=== PATIENT | male | born 1940 | race Caucasian/White ===

== ENCOUNTER 2020-02-11 20:16 | Inpatient (IN) ==
[2020-02-11] MEDS ORDERED: ACETAMINOPHEN 1,000 MG/100 ML VIAL IV STA (20:37)
--- NOTE | 2020-02-11 20:37 | Emergency Department Note ---
History of Present Illness General Chief complaint: Illness Stated complaint: Illness, fever, urosepsis Time Seen by Provider: 02/11/20 20:18 Source: patient, family and EMS Mode of arrival: EMS Limitations: no limitations History of Present Illness Provider complaint: Fever, confusion Onset (ago): hour(s) Associated symptoms: + confusion, + fever/chills and + nausea/vomiting This is an 79-year-old male brought in from EMS after family/caregivers were concerned that the patient was confused and was developing a fever. Patient does have a history of urinary tract infections and sepsis. Patient denies any current pain. Patient states he was nauseated on the ambulance ride, and EMS did give him 4 mg of IV Zofran. Patient did vomit twice. Patient was given cautious IV fluid rehydration in route as well. Patient states he was hospitalized back in August. States he has been feeling well since, is more active, and did eat and drink normally today. Patient states he had chipped ham for lunch, and was not concerned for any foodborne illness. A family friend who came to check on him was concerned that he was confused and contacted family. Upon EMS arrival patient did have a temperature of 101. Patient states he does have a history of prostate problems and sees Dr. Barriga, believes this may have contributed to his urinary tract infection. 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 Pt had a total of 500 ml IVF infused by EMS prior to arrival. Pt seen during a time of high acuity and national emergency pandemic while wear ing PPE. Home Medications Home Medications Medication Instructions Recorded Confirmed Type dutasteride 0.5 mg capsule 0.5 mg PO DAILY #90 cap 04/16/19 02/11/20 Rx aspirin [Aspir-81] 81 mg PO DAILY 09/09/19 02/11/20 History carvedilol [Coreg] 6.25 mg PO HS 09/09/19 02/11/20 History digoxin 250 mcg PO DAILY 09/09/19 02/11/20 History empagliflozin [Jardiance] 10 mg PO DAILY 09/09/19 02/11/20 History linagliptin [Tradjenta] 5 mg PO DAILY 09/09/19 02/11/20 History simvastatin [Zocor] 10 mg PO HS 09/09/19 02/11/20 History acetaminophen [Tylenol Extra 1,000 mg PO AMHS 02/11/20 02/11/20 History Strength] docusate sodium 100 mg PO HS 02/11/20 02/11/20 History qocwtibb-bme-DL-lycopen-lutein 1 tab PO DAILY 02/11/20 02/11/20 History [Centrum Silver] apixaban [Eliquis] 2.5 mg PO Q12 02/12/20 02/12/20 History Allergies Allergy/AdvReac Type Severity Reaction Status Date / Time pseudoephedrine AdvReac uti Verified 02/11/20 23:14 [From Sudafed] Past Med/Surg History Medical History (Updated 02/12/20 @ 12:56 by Constantin Lemus MD) Hydronephrosis Social History Smoking Status: Never smoker Do You Dip or Chew Tobacco: No; Hx Alcohol Use: No Hx Substance Use: No Preferred Language: Indonesian Communication Ability: Effective Furnace Utility Operator Required: No Beliefs That Will Affect Care: None marital status: Single Current Living Situation: Alone How many Children do You have: 0 Feels Safe at Home: Yes Review of Systems See HPI for pertinent positives & negatives. and A total of 10 systems reviewed and were otherwise negative Physical Exam Vital Signs Vital Signs - 24 hr 02/11/20 20:24 02/11/20 20:28 02/11/20 20:30 Temperature 38.0 C H Temperature Source Oral Pulse Rate 84 85 Pulse Rate from SpO2 Sensor 84 Respiratory Rate 18 18 Blood Pressure 156/80 H 116/72 Blood Pressure Mean 105 86 Pulse Oximetry 94 94 93 Oxygen Delivery Method Room Air Room Air Sepsis Recent Fever Within 48 Hours Yes Sepsis New/Unexplained Change in Mental Status N/A Sepsis Action Taken by Nursing No Action Required 02/11/20 21:00 02/11/20 21:30 02/11/20 21:48 Temperature 37 C Temperature Source Oral Pulse Rate 76 76 Pulse Rate from SpO2 Sensor 77 76 Respiratory Rate 18 20 Blood Pressure 140/63 120/56 L Blood Pressure Mean 78 64 Pulse Oximetry 96 94 Oxygen Delivery Method Sepsis Recent Fever Within 48 Hours Sepsis New/Unexplained Change in Mental Status Sepsis Action Taken by Nursing 02/11/20 21:50 02/11/20 22:00 02/11/20 22:01 Temperature Temperature Source Pulse Rate 74 74 71 Pulse Rate from SpO2 Sensor 72 74 71 Respiratory Rate 16 21 19 Blood Pressure 107/54 L Blood Pressure Mean 64 Pulse Oximetry 92 95 93 Oxygen Delivery Method Sepsis Recent Fever Within 48 Hours Sepsis New/Unexplained Change in Mental Status Sepsis Action Taken by Nursing 02/11/20 22:10 02/11/20 22:20 02/11/20 22:30 Temperature Temperature Source Pulse Rate 70 70 72 Pulse Rate from SpO2 Sensor 65 Respiratory Rate 17 19 16 Blood Pressure 133/60 Blood Pressure Mean 69 Pulse Oximetry 94 Oxygen Delivery Method Sepsis Recent Fever Within 48 Hours Sepsis New/Unexplained Change in Mental Status Sepsis Action Taken by Nursing 02/11/20 22:31 02/11/20 22:48 02/11/20 22:50 Temperature Temperature Source Pulse Rate 82 68 70 Pulse Rate from SpO2 Sensor 68 69 Respiratory Rate 21 16 21 Blood Pressure Blood Pressure Mean Pulse Oximetry 98 96 Oxygen Delivery Method Sepsis Recent Fever Within 48 Hours Sepsis New/Unexplained Change in Mental Status Sepsis Action Taken by Nursing 02/11/20 23:00 02/11/20 23:01 02/11/20 23:10 Temperature Temperature Source Pulse Rate 71 70 70 Pulse Rate from SpO2 Sensor 70 68 70 Respiratory Rate 19 18 Blood Pressure 132/61 Blood Pressure Mean 76 Pulse Oximetry 96 96 95 Oxygen Delivery Method Sepsis Recent Fever Within 48 Hours Sepsis New/Unexplained Change in Mental Status Sepsis Action Taken by Nursing 02/11/20 23:20 02/11/20 23:30 02/11/20 23:31 Temperature Temperature Source Pulse Rate 68 68 67 Pulse Rate from SpO2 Sensor 68 69 68 Respiratory Rate 20 19 21 Blood Pressure 112/56 L Blood Pressure Mean 64 Pulse Oximetry 96 97 95 Oxygen Delivery Method Sepsis Recent Fever Within 48 Hours Sepsis New/Unexplained Change in Mental Status Sepsis Action Taken by Nursing 02/12/20 00:06 Temperature Temperature Source Pulse Rate 69 Pulse Rate from SpO2 Sensor 65 Respiratory Rate 13 Blood Pressure Blood Pressure Mean Pulse Oximetry 97 Oxygen Delivery Method Sepsis Recent Fever Within 48 Hours Sepsis New/Unexplained Change in Mental Status Sepsis Action Taken by Nursing GENERAL: alert, well appearing, well nourished, no distress, non-toxic, pt holding emesis bag EYE EXAM: normal conjunctiva, PERRL and EOM's grossly intact OROPHARYNX: no exudate, no erythema, lips, buccal mucosa, and tongue normal and mucous membranes are moist NECK: supple, no nuchal rigidity, no adenopathy, non-tender LUNGS: Clear to auscultation. Normal chest wall mechanics, no w/r/r HEART: no murmurs, S1 normal and S2 normal ABDOMEN: abdomen soft, non-tender, normo-active bowel sounds, no masses, no rebound or guarding. BACK: Back is symmetrical on inspection and there is no deformity, no midline tenderness, no CVA tenderness. SKIN: no rashes and no bruising UPPER EXTREMITIES: upper extremities are grossly normal. FROM, nml pulses b/l. LOWER EXTREMITIES: No pitting edema. FROM, nml pulses b/l. NEURO EXAM: Normal sensorium, cranial nerves II-XII grossly intact, normal speech, no gross weakness of arms, no gross weakness of legs. Gross sensation intact. Course Course 2199: Pt updated on results. Pt states he feels well at this time. 2319: Pt and family updated on additional results. 2326: Case discussed with Dr. Parada. US added after CT report discussed. Administered Medications Apixaban (Apixaban 2.5 Mg Tab) 2.5 mg PO Q12 MICAH Stop: 03/13/20 08:59 Last Admin: 02/13/20 08:07 Dose: 2.5 mg Documented by: [id number] Admin: 02/12/20 20:22 Dose: 2.5 mg Documented by: [id number] Admin: 02/12/20 08:25 Dose: 2.5 mg Documented by: [id number] Aspirin (Aspirin 81 Mg Ectab) 81 mg PO DAILY MICAH Stop: 03/13/20 08:59 Last Admin: 02/13/20 08:07 Dose: 81 mg Documented by: [id number] Admin: 02/12/20 08:25 Dose: 81 mg Documented by: [id number] Carvedilol (Carvedilol 6.25 Mg Tab) 6.25 mg PO HS MICAH Stop: 03/13/20 20:59 Last Admin: 02/12/20 20:22 Dose: 6.25 mg Documented by: [id number] Digoxin (Digoxin 0.25 Mg Tab) 0.25 mg PO DAILY@1600 MICAH Stop: 03/13/20 15:59 Last Admin: 02/13/20 16:05 Dose: 0.25 mg Documented by: [id number] Admin: 02/12/20 15:41 Dose: 0.25 mg Documented by: [id number] Docusate Sodium (Docusate Sodium 100 Mg Cap) 100 mg PO HS MICAH Stop: 03/13/20 20:59 Last Admin: 02/12/20 20:22 Dose: 100 mg Documented by: [id number] Piperacillin Sod/Tazobactam (Sod 3.375 gm/ Dextrose) 115 mls @ 28.75 mls/hr IV Q8H MICAH; Protocol Stop: 02/22/20 07:59 Last Admin: 02/13/20 16:05 Dose: 28.8 mls/hr Documented by: [id number] Infusion: 02/13/20 14:20 Dose: 0 mls/hr Documented by: [id number] Admin: 02/13/20 08:13 Dose: 28.8 mls/hr Documented by: [id number] Infusion: 02/13/20 03:49 Dose: 0 mls/hr Documented by: [id number] Admin: 02/12/20 23:49 Dose: 28.8 mls/hr Documented by: [id number] Infusion: 02/12/20 20:20 Dose: 0 mls/hr Documented by: [id number] Admin: 02/12/20 15:41 Dose: 28.8 mls/hr Documented by: [id number] Infusion: 02/12/20 12:25 Dose: 0 mls/hr Documented by: [id number] Admin: 02/12/20 08:25 Dose: 28.8 mls/hr Documented by: [id number] Insulin Aspart (Insulin Aspart 100 Units/Ml 3 Ml Pen) 0 units SC ACHS MICAH Stop: 03/13/20 07:29 Last Admin: 02/13/20 17:22 Dose: 5 units Documented by: [id number] Cosigned by: [id number] Admin: 02/13/20 12:32 Dose: 11 units Documented by: [id number] Cosigned by: [id number] Admin: 02/13/20 08:08 Dose: 3 units Documented by: [id number] Cosigned by: [id number] Admin: 02/12/20 21:30 Dose: Not Given Documented by: [id number] Cosigned by: [id number] Admin: 02/12/20 17:12 Dose: Not Given Documented by: [id number] Cosigned by: [id number] Admin: 02/12/20 13:21 Dose: Not Given Documented by: [id number] Cosigned by: [id number] Admin: 02/12/20 08:28 Dose: 3 units Documented by: [id number] Cosigned by: [id number] Insulin Glargine (Insulin Glargine Solostar 100 Units/Ml 3 Ml Pen) 25 units SC DAILY MICAH Stop: 03/14/20 14:59 Last Admin: 02/13/20 15:05 Dose: 25 units Documented by: [id number] Cosigned by: [id number] Magnesium Oxide (Magnesium Oxide 400 Mg Tab) 400 mg PO QAM MICAH Stop: 03/14/20 08:59 Last Admin: 02/13/20 08:13 Dose: 400 mg Documented by: [id number] Miscellaneous (Avodart~Order Awaiting Action) 1 ea N/A QS [facility] Stop: 03/13/20 07:59 Last Admin: 02/13/20 16:07 Dose: Not Given Documented by: [id number] Admin: 02/13/20 08:24 Dose: Not Given Documented by: [id number] Admin: 02/13/20 00:41 Dose: Not Given Documented by: [id number] Admin: 02/12/20 15:42 Dose: Not Given Documented by: [id number] Admin: 02/12/20 08:28 Dose: Not Given Documented by: [id number] Multivitamins/Minerals (Cerovite Adv Formula Tab) 1 tab PO DAILY [facility] Stop: 03/13/20 08:59 Last Admin: 02/13/20 08:07 Dose: 1 tab Documented by: [id number] Admin: 02/12/20 08:25 Dose: 1 tab Documented by: [id number] Discontinued Medications Acetaminophen (Ofirmev) 1,000 mg in 100 mls @ 400 mls/hr IV NOW STA Stop: 02/11/20 20:51 Last Infusion: 02/11/20 20:54 Dose: 0 mls/hr Documented by: [id number] Admin: 02/11/20 20:39 Dose: 400 mls/hr Documented by: [id number] Cefepime HCl (Maxipime) 2,000 mg in 20 mls @ 5 mls/min IV NOW STA; Protocol Stop: 02/11/20 21:25 Last Admin: 02/11/20 21:36 Dose: 5 mls/min Documented by: [id number] Vancomycin HCl 1,500 mg/ (Sodium Chloride) 530 mls @ 200 mls/hr IV NOW ONE Stop: 02/12/20 00:00 Last Infusion: 02/12/20 02:09 Dose: 0 mls/hr Documented by: [id number] Admin: 02/11/20 21:36 Dose: 200 mls/hr Documented by: [id number] Sodium Chloride (Nss 1000ml) 1,000 mls @ 999 mls/hr IV .Q1H1M ONE Stop: 02/11/20 22:23 Last Infusion: 02/11/20 22:49 Dose: 0 mls/hr Documented by: [id number] Infusion: 02/11/20 22:49 Dose: 0 mls/hr Documented by: [id number] Admin: 02/11/20 21:45 Dose: 999 mls/hr Documented by: [id number] Sodium Chloride (Nss) 500 mls @ 999 mls/hr IV .Q31M ONE Stop: 02/11/20 22:32 Last Infusion: 02/11/20 22:50 Dose: 0 mls/hr Documented by: [id number] Admin: 02/11/20 22:15 Dose: 999 mls/hr Documented by: [id number] Sodium Chloride (Nss 1000ml) 1,000 mls @ 80 mls/hr IV .[id number] [facility] Stop: 03/13/20 02:07 Last Infusion: 02/12/20 13:20 Dose: 0 mls/hr Documented by: [id number] Admin: 02/12/20 02:23 Dose: 80 mls/hr Documented by: [id number] Piperacillin Sod/Tazobactam (Sod 3.375 gm/ Dextrose) 115 mls @ 230 mls/hr IV TODAY@0300 [facility]; Protocol Stop: 02/12/20 03:29 Last Infusion: 02/12/20 03:26 Dose: 0 mls/hr Documented by: [id number] Admin: 02/12/20 02:55 Dose: 230 mls/hr Documented by: [id number] Vancomycin HCl 1,000 mg/ (Sodium Chloride) 270 mls @ 125 mls/hr IV Q12H [facility] Stop: 02/13/20 14:00 Last Infusion: 02/13/20 14:21 Dose: 0 mls/hr Documented by: [id number] Admin: 02/13/20 12:32 Dose: 125 mls/hr Documented by: [id number] Infusion: 02/12/20 23:52 Dose: 0 mls/hr Documented by: [id number] Admin: 02/12/20 21:37 Dose: 125 mls/hr Documented by: [id number] Infusion: 02/12/20 13:38 Dose: 0 mls/hr Documented by: [id number] Admin: 02/12/20 11:28 Dose: 125 mls/hr Documented by: [id number] Magnesium Sulfate/Dextrose (Magnesium Sulfate / D5w) 1 gm in 100 mls @ 50 mls/hr IV Q2H MICAH Stop: 02/13/20 11:59 Last Infusion: 02/13/20 13:21 Dose: 0 mls/hr Documented by: [id number] Admin: 02/13/20 11:20 Dose: 50 mls/hr Documented by: [id number] Infusion: 02/13/20 11:20 Dose: 0 mls/hr Documented by: [id number] Admin: 02/13/20 08:14 Dose: 50 mls/hr Documented by: [id number] Ioversol (Ioversol 100ml) 100 ml IV ONCE ONE Stop: 02/11/20 22:52 Last Admin: 02/11/20 22:51 Dose: 93 ml Documented by: [id number] Ioversol (Ioversol 100ml) 94 ml IV ONCE ONE Stop: 02/12/20 08:59 Last Admin: 02/12/20 08:59 Dose: 94 ml Documented by: [id number] Pneumococcal Polyvalent Vaccine (Pneumococcal Polysaccharides 25 Mcg/0.5 Ml Vial/Syr) 25 mcg IM .ONCE ONE Stop: 02/12/20 02:25 Last Admin: 02/13/20 05:13 Dose: Not Given Documented by: [id number] Medical Decision Making Differential Diagnosis Differential diagnosis: Etiologies such as viral syndrome, otitis, pharyngitis, pneumonia, influenza, meningitis, urinary tract infection, sepsis, bacteremia, as well as others were entertained. Medical Records Attestation: I reviewed the patient's medical records. Home Medications Current Medication List: was personally reviewed by me Laboratory Data Attestation: I reviewed the patient's lab results. Result diagrams: 02/13/20 05:34 02/13/20 12:08 Lab Results 02/11/20 02/11/20 02/11/20 Range/Units 19:37 19:37 19:37 WBC 22.28 H (4.8-10.8) K/uL RBC 4.64 L (4.7-6.1) M/uL Hgb 14.4 (14.0-18.0) g/dL Hct 44.4 (42-52) % MCV 95.7 (80-100) fL MCH 31.0 (25-34) pg MCHC 32.4 (32-36) g/dL RDW Std Deviation 52.7 H (36.4-46.3) fL RDW Coeff of Shaniqua 15.0 H (11.5-14.5) % Plt Count 380 (130-400) K/uL MPV 12.3 H (7.4-10.4) fL Immature Gran % (Auto) 0.4 % Neut % (Auto) 87.2 % Lymph % (Auto) 6.8 % [place] % (Auto) 2.8 % Eos % (Auto) 2.7 % Baso % (Auto) 0.1 % Neut # (Auto) 19.43 H (1.4-6.5) K/uL Lymph # (Auto) 1.51 (1.2-3.4) K/uL [place] # (Auto) 0.62 H (0.11-0.59) K/uL Eos # (Auto) 0.60 H (0-0.5) K/uL Baso # (Auto) 0.03 (0-0.2) K/uL Immature Gran # (Auto) 0.09 H (0.00-0.02) K/uL PT 11.0 (9.0-12.0) Seconds INR 1.0 (0.9-1.1) APTT 28.7 (21.0-31.0) Seconds PTT Ratio 1.0 Sodium 139 (136-145) mmol/L Potassium 4.0 (3.5-5.1) mmol/L Chloride 105 (98-107) mmol/L Carbon Dioxide 26 (21-32) mmol/L Anion Gap 9.0 (3-11) BUN 25 H (7-18) mg/dl Creatinine 1.06 (0.6-1.4) mg/dl Est Cr Clr Drug Dosing 55.7 ml/min Est GFR ( Amer) 76.4 Est GFR (Non-Af Amer) 66.0 BUN/Creatinine Ratio 23.7 H (10-20) Glucose 139 H (70-99) mg/dl Lactate (0.4-2.0) mmol/L Calcium 9.9 (8.5-10.1) mg/dl Magnesium 1.8 (1.8-2.4) mg/dl Total Bilirubin 0.9 (0.2-1) mg/dl AST 83 H (15-37) U/L ALT 93 H (12-78) U/L Alkaline Phosphatase 981 H (45-117) U/L Troponin I 0.018 (0-0.045) ng/ml Total Protein 7.5 (6.4-8.2) gm/dl Albumin 3.1 L (3.4-5.0) gm/dl Globulin 4.4 H (2.5-4.0) gm/dl Albumin/Globulin Ratio 0.7 L (0.9-2) Procalcitonin (0-0.5) ng/ml Urine Color Urine Appearance (Clear) Urine pH (4.5-7.5) Ur Specific [place] (1.000-1.030) Urine Protein (Negative) Urine Glucose (UA) (Negative) Urine Ketones (Negative) Urine Blood (Negative) Urine Nitrite (Negative) Urine Bilirubin (Negative) Urine Urobilinogen (Negative) Ur Leukocyte Esterase (Negative) Digoxin (0.8-2.0) ng/ml 02/11/20 02/11/20 02/11/20 Range/Units 19:37 19:37 20:35 WBC (4.8-10.8) K/uL RBC (4.7-6.1) M/uL Hgb (14.0-18.0) g/dL Hct (42-52) % MCV (80-100) fL MCH (25-34) pg MCHC (32-36) g/dL RDW Std Deviation (36.4-46.3) fL RDW Coeff of Shaniqua (11.5-14.5) % Plt Count (130-400) K/uL MPV (7.4-10.4) fL Immature Gran % (Auto) % Neut % (Auto) % Lymph % (Auto) % [place] % (Auto) % Eos % (Auto) % Baso % (Auto) % Neut # (Auto) (1.4-6.5) K/uL Lymph # (Auto) (1.2-3.4) K/uL [place] # (Auto) (0.11-0.59) K/uL Eos # (Auto) (0-0.5) K/uL Baso # (Auto) (0-0.2) K/uL Immature Gran # (Auto) (0.00-0.02) K/uL PT (9.0-12.0) Seconds INR (0.9-1.1) APTT (21.0-31.0) Seconds PTT Ratio Sodium (136-145) mmol/L Potassium (3.5-5.1) mmol/L Chloride (98-107) mmol/L Carbon Dioxide (21-32) mmol/L Anion Gap (3-11) BUN (7-18) mg/dl Creatinine (0.6-1.4) mg/dl Est Cr Clr Drug Dosing ml/min Est GFR ( Amer) Est GFR (Non-Af Amer) BUN/Creatinine Ratio (10-20) Glucose (70-99) mg/dl Lactate 1.2 (0.4-2.0) mmol/L Calcium (8.5-10.1) mg/dl Magnesium (1.8-2.4) mg/dl Total Bilirubin (0.2-1) mg/dl AST (15-37) U/L ALT (12-78) U/L Alkaline Phosphatase (45-117) U/L Troponin I (0-0.045) ng/ml Total Protein (6.4-8.2) gm/dl Albumin (3.4-5.0) gm/dl Globulin (2.5-4.0) gm/dl Albumin/Globulin Ratio (0.9-2) Procalcitonin 0.39 (0-0.5) ng/ml Urine Color Urine Appearance (Clear) Urine pH (4.5-7.5) Ur Specific [place] (1.000-1.030) Urine Protein (Negative) Urine Glucose (UA) (Negative) Urine Ketones (Negative) Urine Blood (Negative) Urine Nitrite (Negative) Urine Bilirubin (Negative) Urine Urobilinogen (Negative) Ur Leukocyte Esterase (Negative) Digoxin 1.3 (0.8-2.0) ng/ml 02/11/20 Range/Units 22:20 WBC (4.8-10.8) K/uL RBC (4.7-6.1) M/uL Hgb (14.0-18.0) g/dL Hct (42-52) % MCV (80-100) fL MCH (25-34) pg MCHC (32-36) g/dL RDW Std Deviation (36.4-46.3) fL RDW Coeff of Shaniqua (11.5-14.5) % Plt Count (130-400) K/uL MPV (7.4-10.4) fL Immature Gran % (Auto) % Neut % (Auto) % Lymph % (Auto) % [place] % (Auto) % Eos % (Auto) % Baso % (Auto) % Neut # (Auto) (1.4-6.5) K/uL Lymph # (Auto) (1.2-3.4) K/uL [place] # (Auto) (0.11-0.59) K/uL Eos # (Auto) (0-0.5) K/uL Baso # (Auto) (0-0.2) K/uL Immature Gran # (Auto) (0.00-0.02) K/uL PT (9.0-12.0) Seconds INR (0.9-1.1) APTT (21.0-31.0) Seconds PTT Ratio Sodium (136-145) mmol/L Potassium (3.5-5.1) mmol/L Chloride (98-107) mmol/L Carbon Dioxide (21-32) mmol/L Anion Gap (3-11) BUN (7-18) mg/dl Creatinine (0.6-1.4) mg/dl Est Cr Clr Drug Dosing ml/min Est GFR ( Amer) Est GFR (Non-Af Amer) BUN/Creatinine Ratio (10-20) Glucose (70-99) mg/dl Lactate (0.4-2.0) mmol/L Calcium (8.5-10.1) mg/dl Magnesium (1.8-2.4) mg/dl Total Bilirubin (0.2-1) mg/dl AST (15-37) U/L ALT (12-78) U/L Alkaline Phosphatase (45-117) U/L Troponin I (0-0.045) ng/ml Total Protein (6.4-8.2) gm/dl Albumin (3.4-5.0) gm/dl Globulin (2.5-4.0) gm/dl Albumin/Globulin Ratio (0.9-2) Procalcitonin (0-0.5) ng/ml Urine Color Yellow Urine Appearance Clear (Clear) Urine pH 5.0 (4.5-7.5) Ur Specific [place] 1.028 (1.000-1.030) Urine Protein Negative (Negative) Urine Glucose (UA) 3+ H (Negative) Urine Ketones Negative (Negative) Urine Blood Negative (Negative) Urine Nitrite Negative (Negative) Urine Bilirubin Negative (Negative) Urine Urobilinogen Negative (Negative) Ur Leukocyte Esterase Negative (Negative) Digoxin (0.8-2.0) ng/ml Imaging Data Radiologist's Impression: XR chest 1V portable CLINICAL HISTORY: SEPSIS COMPARISON STUDY: Chest radiograph September 09, 2019 FINDINGS: Left subclavian pacemaker is in place. Cardiac mediastinal silhouette is stable. There is no evidence for pulmonary edema. There is no consolidation to suggest pneumonia. Skin folds project over the left hemithorax. There is no pneumothorax or pleural effusion. A 3.5 cm density projects of the left humeral neck. This is unchanged. This is likely benign. A 3.7 x 2.6 cm lucent lesion wi thin the proximal diaphysis of the left humerus is noted. This is indeterminate. This was not imaged on prior exam. IMPRESSION: 1. No acute cardiopulmonary findings. 2. 3.7 x 2.6 cm lucent lesion within the diaphysis of the left humerus. Although indeterminate, this is probably benign. Nonemergent dedicated left humerus radiographs are recommended. ACT 112: Negative or not required by law. Electronically signed by: Bernardino Sumner M.D. 02/11/2020 8:[address] abdomen and pelvis with contrast: Comparison: CT lumbar spine 11/10/2019. Distended gallbladder. No biliary dilatation. Clinical correlation for acute cholecystitis recommended. Bilateral hydroureteronephrosis without visible obstructing stone. Renal cysts. Distended urinary bladder. Trabeculated bladder wall suggesting chronic bladder outlet obstruction. Prostatomegaly with TURP defect suggested. Liver, spleen, pancreas, adrenal glands are unremarkable. Nonspecific mild periportal edema. Normal appendix. No bowel obstruction or inflammation. Redemonstrated disc space narrowing at L4-L5 with erosive changes in the adjacent endplates, concerning for discitis. This appears stable to improved from prior exam. Osteopenia. No acute fractures. Lumbar spondylosis. Radiologist: Yariel Shearer MD US Gallbladder: Gallbladder distention and sludge. No gallstones or wall thickening. Sonographic Lugo sign reported as negative. Common bile duct measures 9 mm, slightly enlarged for patient age. Echogenic liver suggesting steatosis. Patent portal vein. Right kidney cysts and hydronephrosis. Radiologist: Yariel Shearer MD ECG Data Attestation: I personally reviewed and interpreted this ECG as follows: Indication: + nausea Rate (beats per minute): 87 Rhythm: + normal sinus ECG Intervals/blocks: + Left bundle branch block, + IVCD and + Normal QT ECG Andrews: + Left axis deviation ECG ST segments: + Nonspecific ST abnormalities Blood Pressure Blood Pressure Findings: Elevated blood pressure Blood Pressure Disposition: further management by hospitalist MARITO Narrative Pt here with nausea/vomiting and fever, family concerned for possible evolving sepsis as this is similar to an event in the spring where he was septic from a urinary infection. Family felt pt was slightly confused earlier today but state he is a little better now. Pt answers all questions, did feel zofran by EMS helped. IVF hydration was continued as pt was found to be febrile. Labs and cultures sent. Leukocytosis noted. Other labs reassuring. CT head given confusion was reassuring. CXR reassuring. Once urine resulted and did not appear to be the source of the fever, pt sent for CT a/p. Pt was covered with vanc/cefepime. CT reassuring with questionable biliary disease. Case discsussed with hospitalist and additional US ordered. Both on initial and repeat imaging pt had no abdominal pain. LFT's normal. PT and family made aware of results and were in agreement with plan. Pt given 30 ml/kg based on body weight. No denied any bleeding despite use of blood thinners. 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 Pt denied back pain. An order was placed for continuous cardiac monitoring. The monitor shows a rate of _66_ with _a.fib_ rhythm. Impression & Plan Sepsis, Nausea & vomiting, Abnormal LFTs Discharge Plan Visit Data Chief Complaint: Illness Stated Complaint: Illness, fever, urosepsis ED Provider: Kay Branham Discharge Problem: Sepsis, Nausea & vomiting, Abnormal LFTs Patient Disposition: Admitted As Inpatient Discharge Instructions Interventions: ED Discharge Assessment Last Done: 02/12/20 01:38 Discharge Problem: Sepsis Qualifiers: Sepsis type: sepsis due to unspecified organism Sepsis acute organ dysfunction status: unspecified Qualified Code(s): A41.9 - Sepsis, unspecified organism Nausea & vomiting Qualifiers: Vomiting type: unspecified Vomiting Intractability: non-intractable Qualified Code(s): R11.2 - Nausea with vomiting, unspecified
[2020-02-11 20:42] LABS: Basophils # (auto) 0.03 K/uL (0-0.2); Basophils % (auto) 0.1 %; Eosinophils % (auto) 2.7 %; Hematocrit (blood only) 44.4 % (42-52); Hemoglobin 14.4 g/dL (14.0-18.0); Immature Granulocytes # (auto) 0.09 K/uL (0.00-0.02); Immature Granulocytes % (auto) 0.4 %; Lymphocytes # (auto) 1.51 K/uL (1.2-3.4); Lymphocytes % (auto) 6.8 %; Mean Corpuscular Hgb Conc 32.4 g/dL (32-36); Mean Corpuscular Volume 95.7 fL (80-100); Mean Platelet Volume 12.3 fL (7.4-10.4); Monocytes # (auto) 0.62 K/uL (0.11-0.59); Monocytes % (auto) 2.8 %; Neutrophils # (auto) 19.43 K/uL (1.4-6.5); Neutrophils % (auto) 87.2 %; Platelet Count 380 K/uL (130-400); RDW Standard Deviation 52.7 fL (36.4-46.3); Red Blood Count 4.64 M/uL (4.7-6.1); White Blood Count 22.28 K/uL (4.8-10.8)
--- NOTE | 2020-02-11 20:53 | XRay Report ---
XR chest 1V portable CLINICAL HISTORY: SEPSIS COMPARISON STUDY: Chest radiograph September 09, 2019 FINDINGS: Left subclavian pacemaker is in place. Cardiac mediastinal silhouette is stable. There is n o evidence for pulmonary edema. There is no consolidation to suggest pneumonia. Skin folds project ov er the left hemithorax. There is no pneumothorax or pleural effusion. A 3.5 cm density projects of th e left humeral neck. This is unchanged. This is likely benign. A 3.7 x 2.6 cm lucent lesion within th e proximal diaphysis of the left humerus is noted. This is indeterminate. This was not imaged on prio r exam. IMPRESSION: 1. No acute cardiopulmonary findings. 2. 3.7 x 2.6 cm lucent lesion within the diaphysis of the left humerus. Although indeterminate, this is probably benign. Nonemergent dedicated left humerus radiographs are recommended. ACT 112: Negative or not required by law. Electronically signed by: Bernardino Sumner M.D. 02/11/2020 8:52 PM
[2020-02-11 20:57] LABS: Partial Thromboplastin Time 28.7 Seconds (21.0-31.0)
[2020-02-11 20:59] LABS: Albumin Level 3.1 gm/dl (3.4-5.0); BUN Creatinine Ratio 23.7 (10-20); Calcium 9.9 mg/dl (8.5-10.1); Creatinine Clr Calc Pharmacy 55.7 ml/min; Est GFR (African American) 76.4; Magnesium 1.8 mg/dl (1.8-2.4)
[2020-02-11 21:04] LABS: Albumin Globulin Ratio 0.7 (0.9-2); Bilirubin,Total 0.9 mg/dl (0.2-1); Globulin 4.4 gm/dl (2.5-4.0); Total Protein 7.5 gm/dl (6.4-8.2); Troponin I 0.018 ng/ml (0-0.045)
[2020-02-11] MEDS ORDERED: VANCOMYCIN CONSULT ACTIVE PRN ×2 (21:22)
[2020-02-11] MEDS ORDERED: CEFEPIME 2,000 MG/20 ML VIAL IV STA (21:22)
[2020-02-11] MEDS ORDERED: VANCOMYCIN HCL 1,500 MG in SODIUM CHLORIDE 0.9% 500 ML IV ONE (21:22)
[2020-02-11] MEDS ORDERED: SODIUM CHLORIDE 0.9% 1000ML 1,000 ML IV ONE (21:23)
[2020-02-11] MEDS ORDERED: SODIUM CHLORIDE 0.9% 500 ML IV ONE (22:02)
[2020-02-11 22:28] LABS: Appearance Urine Clear (Clear); Bilirubin Urine Negative (Negative); Blood Urine Negative (Negative); Color Urine Yellow; Glucose Urine UA 3+ (Negative); Ketones Urine Negative (Negative); Leukocyte Esterase Urine Negative (Negative); Nitrite Urine Negative (Negative); Protein Urine Negative (Negative); Specific Gravity Urine 1.028 (1.000-1.030); Urobilinogen Urine Negative (Negative)
[2020-02-11] MEDS ORDERED: IOVERSOL 100ml IV ONE (22:51)
[2020-02-12] MEDS ORDERED: NITROGLYCERIN SL 0.4 MG/TAB TAB SL PRN (02:08)
[2020-02-12] MEDS ORDERED: SODIUM CHLORIDE 0.9% 1000ML 1,000 ML IV SCH (02:08)
[2020-02-12] MEDS ORDERED: ACETAMINOPHEN 325 MG TAB PO PRN (02:08)
[2020-02-12] MEDS ORDERED: ONDANSETRON INJ 2 MG/ML 2 ML VIAL IV PRN (02:08)
[2020-02-12] MEDS ORDERED: PIPERACILL/TAZOBAC CONSULT ACTIVE PRN (02:08)
[2020-02-12] MEDS ORDERED: PNEUMOCOCCAL POLYSACCHARIDES 25 MCG/0.5 ML VIAL/SYR IM ONE (02:24)
[2020-02-12] MEDS ORDERED: PNEUMOCOCCAL ADMINISTRATION CHARGE ONE (02:24)
[2020-02-12] MEDS ORDERED: DEXTROSE 50% 50 ML SYRINGE IV PRN (02:30)
[2020-02-12] MEDS ORDERED: CARBOHYDRATES FOR HYPOGLYCEMIA PO PRN (02:30)
[2020-02-12] MEDS ORDERED: GLUCOSE 10 TABS/TUBE PO PRN (02:30)
[2020-02-12] MEDS ORDERED: GLUCOSE 40% GEL 15 GM TUBE PO PRN (02:30)
[2020-02-12] MEDS ORDERED: GLUCAGON FOR INJ 1 MG VIAL SQ PRN (02:30)
[2020-02-12] MEDS ORDERED: PIPERACILLIN/TAZOBACTAM 3.375 GM in DEXTROSE 5% 100 ML IV SCH (03:00)
--- NOTE | 2020-02-12 03:58 | History and Physical Report ---
DATE OF ADMISSION: 02/12/2020 CHIEF COMPLAINT: Fever and confusion. HISTORY OF PRESENT ILLNESS: This is an 79-year-old male with past medical history significant for chronic systolic CHF with EF of 35% as per the patient and is status post pacemaker, history of atrial fibrillation, hypertension, BPH, diabetes. The patient lives alone, was brought in because of confusion. The patient lives alone, but apparently has a lot of help. He gets food 3 times a day .Since August, when he was treated for UTI, he is not doing good. He has good and bad days. He has back pain and he had a steroid shot to the back and also his blood pressure was dropping and recently his family doctor adjusted blood pressure medications. His appetite is good. He is eating very good, but he lost about 30-40 pounds since last August and he ambulates with help of walker. Today, he was feeling good and he walked about half a mile without any support and he was good until 5:00 p.m. when one of the photographic technician came in the evening to give supper, he was found to be confused and they called his other caregivers and they brought him to the hospital. When the EMS went to his house he seemed to be confused and he has temp of 101 degrees and he vomited twice and he was given fluids and brought here. He received vancomycin and cefepime. History of UTIs in the past.In Er he is hemodynamically stable. Currently, he is alert and oriented. His lactic acid and procalcitonin level is negative. Saturating fine on room air. His white count was 22,000. His creatinine was okay. His lactate is 1.2, procalcitonin 0.39. Urinalysis looks okay, but his CAT scan of the abdomen and pelvis showed distended gallbladder and possible discitis. US shows gallbladder sludge, 9 mm common bile duct. Chest x-ray seems to be okay. His alkaline phosphatase is high at 981, which was normal in August and AST and ALT are also slightly elevated. ALLERGIES: PSEUDOEPHEDRINE. PAST MEDICAL HISTORY: As mentioned above. PAST SURGICAL HISTORY: Status post pacemaker. MEDICATIONS: The patient is on Tylenol 1000 mg p.o. a.m. and at bedtime, Eliquis 2.5 mg the patient is currently taking daily, aspirin 81 mg p.o. daily, Coreg 6.25mg mg p.o. at bedtime, digoxin 250 mcg p.o. daily, Colace 100 mg p.o. at bedtime, finasteride 0.5 mg p.o. daily, Jardiance 10 mg p.o. daily, Tradjenta 5 mg p.o. daily, multivitamins 1 tablet daily, Zocor 10 mg p.o. at bedtime. FAMILY HISTORY: Significant for father of stroke in his 50s. Mother of cancer on her 70s. Sister of cancer in her 40s. SOCIAL HISTORY: No smoking, no alcohol. Lives alone. REVIEW OF SYMPTOMS: As per HPI. Rest of review of symptoms negative. PHYSICAL EXAMINATION: GENERAL: The patient is of moderate build, not in acute distress. VITAL SIGNS: Temperature 37, pulse 69, respiratory rate 13, blood pressure 112/56, oxygen 97% on room air. HEENT: No pallor, no icterus. Oral mucosa moist. NECK: No JVD, no neck masses. CARDIOVASCULAR SYSTEM: S1, S2 heard. Regular rate and rhythm. No murmur, no gallop. RESPIRATORY SYSTEM: Normal AP diameter. No accessory muscle use. No wheezing, no crackles. ABDOMEN: Soft, bowel sounds present. Nontender. No distention, no guarding. No rigidity. CENTRAL NERVOUS SYSTEM: Cranial nerves II-XII grossly intact, nonfocal. MUSCULOSKELETAL: Has lumbar spine tenderness present. EXTREMITIES: Right lower extremity chronic edema seen, no erythema seen. LABORATORY DATA: WBC 22, hemoglobin 14.4, hematocrit 44.4, platelets 380. PT 11, INR 1, APTT 28.7. Sodium 139, potassium 4, chloride 105, bicarbonate 26, BUN 25, creatinine 1.06, serum glucose 113, lactate 1.2, calcium 9.9, magnesium 1.8. Total bilirubin 0.9, AST 283, ALT 93, alkaline phosphatase 981. Troponin I 0.018. Procalcitonin 0.39. Urinalysis negative except for +3 glucose. Digoxin 1.3. IMAGING: Chest x-ray: No acute cardiopulmonary findings, 3.7 cm lucent lesion within the axis of left humerus, probably benign, nonemergent dedicated left humerus radiographs are recommended. CT scan of the abdomen and pelvis preliminary report shows distended gallbladder, no biliary dilatation, clinical correlation for acute cholecystitis recommended, bilateral hydroureteronephrosis without visible obstructing stone, renal cyst, distended urinary bladder, bladder bladder outlet obstruction . Redemonstrated disk space narrowing at L4-L5 with erosive changes in the adjacent endplates concerning for discitis. This appears stable to improved from the prior exam. Osteopenia. Gallbladder ultrasound preliminary report shows gallbladder distention with sludge, no gallstones or wall thickening, sonographic Lugo sign reported as negative, common bile duct measures 9 mm and slightly enlarged per the patient's age, echogenic liver suggesting steatosis, patent portal vein, right kidney cyst and hydronephrosis. EKG: Normal sinus rhythm with rate of 87, left axis deviation, left bundle branch block, nonspecific T-wave abnormality seen. QTc 445. ASSESSMENT AND PLAN: This is an 79-year-old male who presents with confusion, fever. 1. Confusion, fever. History of UTIs in the past, but urinalysis still is negative. Currently alert and oriented. Received fluid bolus per sepsis protocol in the ER. Lactic acid and procalcitonin negative. Chest x-ray seems okay. CAT scan of the abdomen and pelvis showing distended gallbladder and possible discitis at L4-L5. Gallbladder ultrasound showed gallbladder sludge and distended gallbladder. His AST and ALT are slightly elevated and alkaline phosphatase elevated at 981. Bilirubin is normal. Common bile duct is 9 mm . Received vancomycin and cefepime. We will continue with vancomycin and Zosyn. Continue fluids with normal saline at 80 mL per hour. Currently hemodynamically stable. Follow the cultures. We will consult General Surgery and GI for possible gallbladder disease and also consult Ortho for possible discitis. 2. Possible discitis. It was there in the CAT scan done in 11/16/2019. The patient has back pain,.. Could not do MRI because of pacemaker. Antibiotics as above. We will consult Ortho for further recommendations. 3. Elevated alkaline phosphatase, Ast and alt also slightly elevated. They were normal in August. We also will check for GGT to look for any liver origin. Elevated alkaline phosphatase possibly coming from the bones. We will also check on PSA levels. Await GI input. 4. History of BPH, chronic bladder outlet obstruction, bilateral hydronephrosis. Follows with Urology. Continue his home dutasteride. We will consult Urology for any further recommendations. 5. History of paroxysmal atrial fibrillation, rate controlled with digoxin and he is taking Coreg only in the nighttime because of recent history of hypotension. Also says his Eliquis was changed to once daily but will give twice daily while he is here. He follows with Cardiology in [place]. s/p pacemaker. 6. History of chronic systolic CHF with EF of 35% as per the patient, He is not taking Lasix anymore. Getting fluids. We will monitor for volume overload. 7. History of hypertension. Continue his home Coreg with holding parameters. We will monitor his blood pressure. 8. Diabetes. Hold his home medications. We will start on insulin sliding scale. Follow the blood sugars, follow HbA1c levels. 9. Chronic lymphedema of the right lower extremity. He says his right leg is swollen for last 30 years. 10. Deep venous thrombosis prophylaxis, on Eliquis. DISPOSITION: Closely monitor in the med tele. Level 1 full code only if there is a chance of recovery as per discussion with the patient. PT and OT prior to discharge. Social Service to help with discharge planning. JOSUE
[2020-02-12 07:00] LABS: Albumin Level 2.3 gm/dl (3.4-5.0); Bilirubin Direct 0.4 mg/dl (0-0.2); Bilirubin,Total 0.9 mg/dl (0.2-1); Prostate Specific Antigen 0.136 ng/ml (0-4)
--- NOTE | 2020-02-12 07:11 | CT Scan Report ---
CT abd pelvis IV con only CLINICAL HISTORY: Nausea, vomiting, elevated white count, abnormal LFTs. COMPARISON STUDY: None. TECHNIQUE: The patient was scanned in a dynamic helical fashion during intravenous administration of 93 cc of Optiray 320 A dose lowering technique was utilized adhering to the principles of ALARA. CT DOSE: 281.53 mGy.cm FINDINGS: Lower chest: Underlying emphysema is suspected. There is minimal basilar atelectasis. Liver: There is minimal periportal edema, possibly secondary to hydration. No focal hepatic masses ar e visualized. Gallbladder: Mildly distended. Mild pericholecystic fluid. No gallstones identified. Spleen: Normal in size and attenuation. Pancreas: No masses are visualized. There are several peripancreatic calcifications. Adrenal glands: There is mild adrenal gland thickening. Kidneys: There are multiple bilateral renal cysts measuring up to 8 cm in diameter. There is bilatera l hydronephrosis and hydroureter. No ureteral or bladder calculi are visualized. Bowel: There are no transition zones to indicate bowel obstruction. There is no evidence of acute div erticulitis. The appendix appears normal. There is borderline small bowel wall thickening. Peritoneum: There is no intraperitoneal free air or abdominal ascites. Vasculature: The abdominal aorta is normal in course and caliber. Adenopathy: None. Pelvic viscera: The bladder is distended. The prostate is enlarged. There is a soft tissue density at the bladder base representing either a bladder lesion or nodular prostate. Skeletal structures: Degenerative changes are present in the cervical spine with erosive changes invo lving the L5-S1 disc. IMPRESSION: 1. Distended urinary bladder with secondary bilateral hydronephrosis 2. Gallbladder distention. 3. Bilateral renal cysts 4. Mild periportal edema and trace pericholecystic fluid 5. Enlarged nodular prostate. 6. Soft tissue density at the bladder base representing either a bladder lesion or a nodular prostate 7. Improved endplate erosive changes at the L4-5 level, likely secondary to a prior discitis/osteomye litis 8. No evidence of bowel obstruction. No evidence of free air ACT 112: Negative or not required by law. Electronically signed by: Butch Holt M.D. 02/12/2020 7:09 AM
--- NOTE | 2020-02-12 07:36 | Ultrasound Report ---
US gallbladder CLINICAL HISTORY: Elevated liver enzymes COMPARISON STUDY: CT scan dated 02/11/2020 FINDINGS: The pancreas appear normal as visualized. The gallbladder was distended containing a small amount of sludge. There is no gallbladder wall thickening. Technologist reports a negative sonographi c Lugo sign. Common hepatic duct measured 9 mm. No images of the common bile duct were obtained. Th ere is right-sided hydronephrosis. Multiple right renal cysts are visualized. The liver appears sligh tly echogenic without evidence of focal mass.. IMPRESSION: 1. Distended gallbladder containing a small of sludge. No gallstones identified. No wall thickening. Negative sonographic Lugo sign. 2. 9 mm common hepatic duct 3. Right-sided hydronephrosis and multiple right renal cysts. 4. Slight increase in hepatic echogenicity without evidence of focal mass ACT 112: Negative or not required by law. Electronically signed by: Butch Holt M.D. 02/12/2020 7:35 AM
[2020-02-12] MEDS: CEROVITE ADV FORMULA TAB PO SCH (08:25)
[2020-02-12] MEDS: APIXABAN 2.5 MG TAB PO SCH ×2 (08:25→20:22)
[2020-02-12] MEDS: ASPIRIN 81 MG ECTAB PO SCH (08:25)
[2020-02-12] MEDS: PIPERACILLIN/TAZOBACTAM 3.375 GM in DEXTROSE 5% 100 ML IV SCH ×3 (08:25→23:49)
[2020-02-12] MEDS: INSULIN ASPART 100 UNITS/ML 3 ML PEN SC SCH ×4 (08:28→21:30)
[2020-02-12] MEDS: AVODART~ORDER AWAITING ACTION SCH ×2 (08:28→15:42)
--- NOTE | 2020-02-12 08:31 | Surgery Consultation ---
Date of Consultation February 12, 2020 Assessment & Plan (1) Abnormal LFTs: This is an 79y M with a PMH of BPH, pacemaker, afib on eliquis, and DM who presented to the [facility] ED on 02/11/20 with confusion and fevers. Upon arrival to the ED patient was found to have an elevated WBC to 22, Temp. 38C, and a CT a/p that revealed findings of gallbladder distention with sludge, no stones. A follow up RUQ US obtained showed a distended gallbladder containing a small of sludge, no gallstones nor wall thickening, a negative sonographic Lugo sign, and a 9 mm common hepatic duct. Today LFTs reveal Tbili: 0.9, Db: 0.4, AST: 37 (83), ALT: 62 (93), and AlkP: 664 (981). There is question if alkphos is elevated due to other source. On interview patient denies any abdominal symptoms, he tolerated breakfast without nausea/vomiting or abdominal pain. His abdomen is soft, non tender, and non distended. At this time since patient is feeling better and there is no concern for acute cholecystitis based on imaging and labs we will defer on surgical intervention at this time. Would continue on a course of abx for elevated WBC. We will continue to follow the patient, please call with questions/concerns. as above. pt feeling much better. no pain or nausea now. I do not believe the gallbladder was his etiology...not the typical history/clinical picture. abd: soft. nt. continue antibiotics. will recheck his wbc tomorrow. will follow along. no surgical plans at this point. History of Present Illness Attending Physician: Constantin Lemus MD History of Present Illness This is an 79y M with a PMH of BPH, pacemaker, afib on eliquis, and DM who presented to the [facility] ED on 02/11/20 with confusion and fevers. Patient reports he was having a very good day yesterday, he walked 1/2 mile without his walker and took a drive in his car. He reports falling to sleep at one point, but when his caregivers came to drop him off dinner he woke up confused thinking it was 3am when it was really 5:30pm in the evening. He states due to confusion and fever he was brought in to the ED for further evaluation. In the ED patient found to have a WBC of [address] a/p revealed findings showing gallbladder distention. A RUQ US was obtained that revealed gallbladder distention with sludge, no cholelithiasis or wall thickening, and the common hepatic duct 9mm. On my interview this AM patient reports feeling well today. He tolerated breakfast without issues. He denies any nausea/vomiting, fevers/chills, abdominal pain, or change in bowel habits. He denies any history of abdominal surgery. Allergies Allergy/AdvReac Type Severity Reaction Status Date / Time pseudoephedrine AdvReac uti Verified 02/11/20 23:14 [facility] Home Medications Home Medications Medication Instructions Recorded Confirmed Type dutasteride 0.5 mg capsule 0.5 mg PO DAILY #90 cap 04/16/19 02/11/20 Rx aspirin [Aspir-81] 81 mg PO DAILY 09/09/19 02/11/20 History carvedilol [Coreg] 6.25 mg PO HS 09/09/19 02/11/20 History digoxin 250 mcg PO DAILY 09/09/19 02/11/20 History empagliflozin [Jardiance] 10 mg PO DAILY 09/09/19 02/11/20 History linagliptin [Tradjenta] 5 mg PO DAILY 09/09/19 02/11/20 History simvastatin [Zocor] 10 mg PO HS 09/09/19 02/11/20 History acetaminophen [Tylenol Extra 1,000 mg PO AMHS 02/11/20 02/11/20 History Strength] docusate sodium 100 mg PO HS 02/11/20 02/11/20 History synuokma-gyd-NC-lycopen-lutein 1 tab PO DAILY 02/11/20 02/11/20 History [Centrum Silver] apixaban [Eliquis] 2.5 mg PO Q12 02/12/20 02/12/20 History Patient History Medical History (Updated 02/12/20 @ 12:56 by Constantin Lemus MD) Hydronephrosis Social History Smoking Status: Never smoker Do You Dip or Chew Tobacco: No; Hx Alcohol Use: No Hx Substance Use: No Preferred Language: Yi Communication Ability: Effective Spray Foam Installer Required: No Beliefs That Will Affect Care: None Current Living Situation: Alone Feels Safe at Home: Yes Review of Systems Constitutional: no fever and no chills Respiratory: no dyspnea Cardiovascular: no chest pain Gastrointestinal: no abdominal pain, no bloating, no nausea, no vomiting and no change in bowel habits Physical Exam Physical Exam: awake/alert Respiratory: normal respiratory effort Gastrointestinal (Abdomen): Inspection/Auscultation: abdomen not distended Percussion/Palpation: abdomen soft; abdomen nontender Results & Data ([facility]) Vital Signs (Past 12 Hours) Vital Signs Temp Pulse Pulse Pulse Resp BP BP 02/12/20 07:00 36.5 C 63 20 112/61 02/12/20 02:21 61 02/12/20 01:55 36.8 C 77 16 02/12/20 01:38 66 18 116/54 L 02/12/20 00:06 69 13 02/11/20 23:31 67 21 02/11/20 23:30 68 19 112/56 L 02/11/20 23:20 68 20 02/11/20 23:10 70 02/11/20 23:01 70 18 02/11/20 23:00 71 19 132/61 02/11/20 22:50 70 21 02/11/20 22:48 68 16 02/11/20 22:31 82 21 02/11/20 22:30 72 16 133/60 02/11/20 22:20 70 19 02/11/20 22:10 70 17 02/11/20 22:01 71 19 02/11/20 22:00 74 21 107/54 L 02/11/20 21:50 74 16 02/11/20 21:48 37 C 02/11/20 21:30 76 20 120/56 L 02/11/20 21:00 76 18 140/63 BP Pulse Ox 02/12/20 07:00 98 02/12/20 02:21 02/12/20 01:55 137/70 97 02/12/20 01:38 97 02/12/20 00:06 97 02/11/20 23:31 95 02/11/20 23:30 97 02/11/20 23:20 96 02/11/20 23:10 95 02/11/20 23:01 96 02/11/20 23:00 96 02/11/20 22:50 96 02/11/20 22:48 98 02/11/20 22:31 02/11/20 22:30 02/11/20 22:20 02/11/20 22:10 94 02/11/20 22:01 93 02/11/20 22:00 95 02/11/20 21:50 92 02/11/20 21:48 02/11/20 21:30 94 02/11/20 21:[address] abd pelvis IV con only CLINICAL HISTORY: Nausea, vomiting, elevated white count, abnormal LFTs. COMPARISON STUDY: None. TECHNIQUE: The patient was scanned in a dynamic helical fashion during intravenous administration of 93 cc of Optiray 320 A dose lowering technique was utilized adhering to the principles of ALARA. CT DOSE: 281.53 mGy.cm FINDINGS: Lower chest: Underlying emphysema is suspected. There is minimal basilar atelectasis. Liver: There is minimal periportal edema, possibly secondary to hydration. No focal hepatic masses are visualized. Gallbladder: Mildly distended. Mild pericholecystic fluid. No gallstones identified. Spleen: Normal in size and attenuation. Pancreas: No masses are visualized. There are several peripancreatic calcifications. Adrenal glands: There is mild adrenal gland thickening. Kidneys: There are multiple bilateral renal cysts measuring up to 8 cm in diameter. There is bilateral hydronephrosis and hydroureter. No ureteral or bladder calculi are visualized. Bowel: There are no transition zones to indicate bowel obstruction. There is no evidence of acute diverticulitis. The appendix appears normal. There is borderline small bowel wall thickening. Peritoneum: There is no intraperitoneal free air or abdominal ascites. Vasculature: The abdominal aorta is normal in course and caliber. Adenopathy: None. Pelvic viscera: The bladder is distended. The prostate is enlarged. There is a soft tissue density at the bladder base representing either a bladder lesion or nodular prostate. Skeletal structures: Degenerative changes are present in the cervical spine with erosive changes involving the L5-S1 disc. IMPRESSION: 1. Distended urinary bladder with secondary bilateral hydronephrosis 2. Gallbladder distention. 3. Bilateral renal cysts 4. Mild periportal edema and trace pericholecystic fluid 5. Enlarged nodular prostate. 6. Soft tissue density at the bladder base representing either a bladder lesion or a nodular prostate 7. Improved endplate erosive changes at the L4-5 level, likely secondary to a prior discitis/osteomyelitis 8. No evidence of bowel obstruction. No evidence of free air ACT 112: Negative or not required by law. Electronically signed by: Butch Holt M.D. 02/12/2020 7:09 AM S gallbladder CLINICAL HISTORY: Elevated liver enzymes COMPARISON STUDY: CT scan dated 02/11/2020 FINDINGS: The pancreas appear normal as visualized. The gallbladder was distended containing a small amount of sludge. There is no gallbladder wall thickening. Technologist reports a negative sonographic Lugo sign. Common hepatic duct measured 9 mm. No images of the common bile duct were obtained. There is right-sided hydronephrosis. Multiple right renal cysts are visualized. The liver appears slightly echogenic without evidence of focal mass.. IMPRESSION: 1. Distended gallbladder containing a small of sludge. No gallstones identified. No wall thickening. Negative sonographic Lugo sign. 2. 9 mm common hepatic duct 3. Right-sided hydronephrosis and multiple right renal cysts. 4. Slight increase in hepatic echogenicity without evidence of focal mass ACT 112: Negative or not required by law. Electronically signed by: Butch Holt M.D. 02/12/2020 7:35 AM PG Care Time/CCT Total # of Minutes Spent Total Time Spent with Patient: Total time spent is greater than 50% in coordi nation of care (as documented) at patient's floor/unit and/or counseling patient: Coding Level of Care Code 46185 Initial Inpt Care Lvl 3 Diagnoses Abnormal LFTs R94.5
--- NOTE | 2020-02-12 08:34 | Electrocardiogram Report ---
Test Reason : Blood Pressure : / mmHG Vent. Rate : 087 BPM Atrial Rate : 087 BPM P-R Int : 198 ms QRS Dur : 152 ms QT Int : 370 ms P-R-T Axes : 073 -47 093 degrees QTc Int : 445 ms Normal sinus rhythm Left axis deviation Left bundle branch block Abnormal ECG When compared with ECG of 09-SEP-2019 15:19, Sinus rhythm has replaced Atrial fibrillation Confirmed by Vishal Mckeon ([id number]) on 02/12/2020 8:33:57 AM Referred By: REFERRED SELF Confirmed By:Vishal Mckeon
[2020-02-12] MEDS ORDERED: IOVERSOL 100ml IV ONE (08:58)
--- NOTE | 2020-02-12 09:26 | Gastrointestinal Consultation ---
Date of Consultation February 12, 2020 Assessment & Plan (1) Nausea & vomitin-year-old male with past medical history significant for chronic systolic CHF with EF of 35% as per the patient and is status post pacemaker, history of atrial fibrillation, hypertension, BPH, diabetes presenting through the ED w/ nausea/vomiting, abdominal pain w/ confusion noted at home CT abd and US abd w/ mild gb thickening, sludge but no stones, common hepatic duct dilated but no evidence of CBD stone or obstruction. His ALKP is significant elevated. GGT pending. Concerned his ALKP elevation could be non- hepatic, no definite biliary cause of serologic abnormality. NPO Appreciate surgical input AlkP isoenzymes Check PSA Unable to have MRCP given pacer Continue IV ABX Will follow. Thank you for allowing us to participate in the care of this patient. Please call with any acute changes, questions or concerns. Please see addendum below with additional recommendation from my supervising physician. Supervising Physician Co-Signing Physician Notes I have personally seen and examined the patient with MARLENI Senior. Her note reflects my exam and findings. I agree with her impression and plan. I am concerned that patient's symptoms and labs are related to pancreatic disease. Awaiting GGT. Angelo Villalobos M.D. History of Present Illness Reason for Consultation: gb thickening, elevated ALKP Requesting Physician: Allan Attending Physician: Constantin Lemus MD History of Present Illness 79-year-old male with past medical history significant for chronic systolic CHF with EF of 35% as per the patient and is status post pacemaker, history of atrial fibrillation, hypertension, BPH, diabetes. The patient lives alone, was brought in because of confusion. Notes that yesterday was in his typical state of health. Developed upper abd pain, nausea/vomiting after dinner. Suggests after this he had some transient confusion. He lives alone, but apparently has a lot of help and an evening flow worker came in the evening to give supper, he was found to be confused and they called his other caregivers and they brought him to the hospital. In Er he is hemodynamically stable. He is alert and oriented. CAT scan of the abdomen and pelvis showed distended gallbladder and possible discitis. US shows gallbladder sludge, 9 mm common bile duct. Chest x-ray seems to be okay. His alkaline phosphatase is high at 981, which was normal in August and AST and ALT are also slightly elevated. US: gb thickening, sludge CTAP: Distended urinary bladder with secondary bilateral hydronephrosis 2. Gallbladder distention. 3. Bilateral renal cysts 4. Mild periportal edema and trace pericholecystic fluid 5. Enlarged nodular prostate. 6. Soft tissue density at the bladder base representing either a bladder lesion or a nodular prostate 7. Improved endplate erosive changes at the L4-5 level, likely secondary to a prior discitis/osteomyelitis 8. No evidence of bowel obstruction. No evidence of free air Allergies Allergy/AdvReac Type Severity Reaction Status Date / Time pseudoephedrine AdvReac uti Verified 02/11/20 23:14 [From [facility]] Home Medications Home Medications Medication Instructions Recorded Confirmed Type dutasteride 0.5 mg capsule 0.5 mg PO DAILY #90 cap 04/16/19 02/11/20 Rx aspirin [Aspir-81] 81 mg PO DAILY 09/09/19 02/11/20 History carvedilol [Coreg] 6.25 mg PO HS 09/09/19 02/11/20 History digoxin 250 mcg PO DAILY 09/09/19 02/11/20 History empagliflozin [Jardiance] 10 mg PO DAILY 09/09/19 02/11/20 History linagliptin [Tradjenta] 5 mg PO DAILY 09/09/19 02/11/20 History simvastatin [Zocor] 10 mg PO HS 09/09/19 02/11/20 History acetaminophen [Tylenol Extra 1,000 mg PO AMHS 02/11/20 02/11/20 History Strength] docusate sodium 100 mg PO HS 02/11/20 02/11/20 History frfvxjyt-inx-LS-lycopen-lutein 1 tab PO DAILY 02/11/20 02/11/20 History [Centrum Silver] apixaban [Eliquis] 2.5 mg PO Q12 02/12/20 02/12/20 History Patient History Medical History (Updated 02/12/20 @ 12:56 by Constantin Lemus MD) Hydronephrosis Social History Smoking Status: Never smoker Do You Dip or Chew Tobacco: No; Hx Alcohol Use: No Hx Substance Use: No Preferred Language: [place] Communication Ability: Effective Rn Home Health Required: No Beliefs That Will Affect Care: None Current Living Situation: Alone Feels Safe at Home: Yes Review of Systems Constitutional: + weakness and + weight loss; no fever and no body aches Respiratory: no cough and no dyspnea Cardiovascular: no chest pain, no dyspnea at rest and no dyspnea on exertion Gastrointestinal: no abdominal pain, no dysphagia, no change in bowel habits, no change in stools, no blood in stools and no melena Physical Exam Constitutional: WD/WN, vitals as above Neck: trachea midline Respiratory: normal respiratory effort, lungs clear to auscultation Cardiovascular: RRR, no murmur, no edema Gastrointestinal (Abdomen): Percussion/Palpation: abdomen soft; abdomen nontender, no guarding and abdomen not rigid Skin: no rashes, warm and dry Results & Data ([facility]) Vital Signs (Past 12 Hours) Vital Signs Temp Pulse Pulse Pulse Resp BP BP 02/12/20 07:00 36.5 C 63 20 112/61 02/12/20 02:21 61 02/12/20 01:55 36.8 C 77 16 02/12/20 01:38 66 18 116/54 L 02/12/20 00:06 69 13 02/11/20 23:31 67 21 02/11/20 23:30 68 19 112/56 L 02/11/20 23:20 68 20 02/11/20 23:10 70 02/11/20 23:01 70 18 02/11/20 23:00 71 19 132/61 02/11/20 22:50 70 21 02/11/20 22:48 68 16 02/11/20 22:31 82 21 02/11/20 22:30 72 16 133/60 02/11/20 22:20 70 19 02/11/20 22:10 70 17 02/11/20 22:01 71 19 02/11/20 22:00 74 21 107/54 L 02/11/20 21:50 74 16 02/11/20 21:48 37 C 02/11/20 21:30 76 20 120/56 L BP Pulse Ox 02/12/20 07:00 98 02/12/20 02:21 02/12/20 01:55 137/70 97 02/12/20 01:38 97 02/12/20 00:06 97 02/11/20 23:31 95 02/11/20 23:30 97 02/11/20 23:20 96 02/11/20 23:10 95 02/11/20 23:01 96 02/11/20 23:00 96 02/11/20 22:50 96 02/11/20 22:48 98 02/11/20 22:31 02/11/20 22:30 02/11/20 22:20 02/11/20 22:10 94 02/11/20 22:01 93 02/11/20 22:00 95 02/11/20 21:50 92 02/11/20 21:48 02/11/20 21:30 94 (1) Nausea & vomiting Vomiting Intractability: non-intractable Vomiting type: unspecified Qualified Code(s): R11.2 - Nausea with vomiting, unspecified
--- NOTE | 2020-02-12 09:27 | CT Scan Report ---
CT humerus LT w con HISTORY: 79 years-old Male left humerus lesion on cxr. Follow-up study in a patient with reported le ft humeral lesion COMPARISON: Chest radiograph 02/11/2020 and 09/09/2019, CT abdomen and pelvis 02/11/2020 TECHNIQUE: Multiple axial CT images of the left humerus were obtained without the use of IV contrast. A dose lowering technique was used consistent with the principals of CARLENE. FINDINGS: Subpleural nodules of the left upper lobe and likely benign. Unremarkable soft tissues. Gynecomastia. Left subclavian pacer with streak artifact. Left hydronephrosis with left renal cysts. 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 Marginal spurring of the elbow. Moderate e nthesophyte of the olecranon process. There are a few ill-defined corticated ossifications noted meaghan g the superior glenoid measuring up to 3 mm which may reflect fragmented osteophytes. There is decrea sed coracohumeral interval of 3 mm. Mild marginal spurring with subcortical cystic change of the acro mium. No acute fracture or dislocation. The imaged ribs appear intact. There is a thin-walled lucent cystic bone lesion with thin zone of margination located within the central medullary cavity of the p roximal humeral metaphysis and surgical neck which measures 2.1 x 2.7 x 3.4 cm (image 102 series 2 an d image 26 series 200). No endosteal scalloping, cortical breakthrough or adjacent periostitis. There is no associated cartilaginous or osseous matrix. Additionally, there is a focal intramedullary cyst ic process with thin linear internal septations involving the proximal to mid diaphyseal humerus bertha uring 1.5 x 2.2 x 3.4 cm. This lesion also demonstrates a thin zone of margination without cortical b reakthrough or suspicious features. IMPRESSION: 1. Moderate glenohumeral and severe AC joint osteoarthritis without acute fracture or dislocation. 2. Cystic benign-appearing bone lesions of the proximal and mid humerus as detailed above demonstrate low suspicion features. No pathologic fracture. 3. Left hydronephrosis redemonstrated. 4. Decreased coracohumeral interval is suggestive of chronic rotator cuff tears. ACT 112: Negative or not required by law. The above report was generated using voice recognition software. It may contain grammatical, syntax o r spelling errors. Electronically signed by: Servando Toure M.D. 02/12/2020 9:26 AM
--- NOTE | 2020-02-12 09:33 | Pharmacy Report ---
Pharmacy Abx Initial Consult - Date of Service February 12, 2020 - Pharmacy Dosing Scope Date of Consult: 02/12/2020 Consultation requested by: Dr. Parada Pharmacy is consulted to initiate Vancomycin + Zosyn IV dosing therapy, order appropriate labs and adjust drug dose/frequency. - Subjective The patient is a 79 year old M admitted on 02/12/20 01:01. - Objective Height: 5 ft 11 in Weight: 65.8 kg Vital Signs (Past 12hrs): Vital Signs Temp Pulse Pulse Pulse Resp BP BP 02/12/20 07:00 36.5 C 63 20 112/61 02/12/20 02:21 61 02/12/20 01:55 36.8 C 77 16 02/12/20 01:38 66 18 116/54 L 02/12/20 00:06 69 13 02/11/20 23:31 67 21 02/11/20 23:30 68 19 112/56 L 02/11/20 23:20 68 20 02/11/20 23:10 70 02/11/20 23:01 70 18 02/11/20 23:00 71 19 132/61 02/11/20 22:50 70 21 02/11/20 22:48 68 16 02/11/20 22:31 82 21 02/11/20 22:30 72 16 133/60 02/11/20 22:20 70 19 02/11/20 22:10 70 17 02/11/20 22:01 71 19 02/11/20 22:00 74 21 107/54 L 02/11/20 21:50 74 16 02/11/20 21:48 37 C 02/11/20 21:30 76 20 120/56 L BP Pulse Ox 02/12/20 07:00 98 02/12/20 02:21 02/12/20 01:55 137/70 97 02/12/20 01:38 97 02/12/20 00:06 97 02/11/20 23:31 95 02/11/20 23:30 97 02/11/20 23:20 96 02/11/20 23:10 95 02/11/20 23:01 96 02/11/20 23:00 96 02/11/20 22:50 96 02/11/20 22:48 98 02/11/20 22:31 02/11/20 22:30 02/11/20 22:20 02/11/20 22:10 94 02/11/20 22:01 93 02/11/20 22:00 95 02/11/20 21:50 92 02/11/20 21:48 02/11/20 21:30 94 Lab Results (24hrs): Laboratory Tests (24 Hours) 02/11/20 02/11/20 02/11/20 19:37 19:37 19:37 WBC 22.28 H Neut # (Auto) 19.43 H Creatinine 1.06 Est Cr Clr Drug Dosing 55.7 Procalcitonin 0.39 - Risk Factors for Resistance * Antimicrobial use within the last 90 days: * Doxycycline + Augmentin - Assessment & Plan Assessment 79 year old M admitted secondary to fever and confusion * Found to be confused by caregiver. EMS reported fever of 101 F. Patient vomited twice. H/o UTIs. * Urinalysis is negative. Lactic acid and PCT negative. CT A/P showed distended gallbladder and possible discitis at L4-L5. AST/ALT and Alk. Phos. elevated. * Febrile at 38 C on admission. Leukocytosis of 22k. Renal fxn at baseline. * 4/4 bottles from blood cultures growing gram positive cocci in chains. Continue to follow. Plan Vancomycin + Zosyn for empiric treatment of GI infection/possible discitis Vancomycin IV * Loading dose: 1500 mg (23 mg/kg) * Patient meets criteria for vancomycin AUC dosing nomogram * AUC/MARGY is the preferred PK/PD target for vancomycin * Target AUC/MARGY = 400-600 * AUC guided dosing is effective and associated with decreased risk of nephrotoxicity * Trough ordered for tomorrow AM to asses AUC/AMRGY Piperacillin/tazobactam * 3.375 g bolus administered over 30 minutes, then 3.375 g IV extended infusion every 8 hours for CrCl greater than 20 mL/min Pharmacy will continue to follow and will adjust dose/frequency as necessary. Thank you.
--- NOTE | 2020-02-12 10:34 | Orthopedic Consultation ---
Date of Consultation February 12, 2020 Assessment & Plan (1) Discitis of lumbar region: At this point the patient is having minimal back pain and no radicular complaints. There is evidence of improvement in terms of the endplate deformation on the new CT scan of the abdomen pelvis. I reviewed the films and case with Dr. Collins and he does not believe that any type of surgical intervention is indicated at this point. Continued medical management is recommended. Following his white count sed rate and C-reactive protein is indicated. History of Present Illness Attending Physician: Constantin Lemus MD History of Present Illness We have been treating him for an admixture of low back pain as well as spinal stenosis.Patient is an 79-year-old male who is known to our practice. In October he was diagnosed with discitis and had been on IV antibiotics and oral antibiotics for this. Yesterday he became confused after walking a mile felt nauseous and was brought to the emergency room. Today states he is really not having much in way of back pain. He is having no radicular complaints. He denies any other numbness, tingling, paresthesias was noted he had urinary retention and when a Hernández was placed had 1700 cc of urine. Allergies Allergy/AdvReac Type Severity Reaction Status Date / Time pseudoephedrine AdvReac uti Verified 02/11/20 23:14 [From [facility]] Home Medications Home Medications Medication Instructions Recorded Confirmed Type dutasteride 0.5 mg capsule 0.5 mg PO DAILY #90 cap 04/16/19 02/11/20 Rx aspirin [Aspir-81] 81 mg PO DAILY 09/09/19 02/11/20 History carvedilol [Coreg] 6.25 mg PO HS 09/09/19 02/11/20 History digoxin 250 mcg PO DAILY 09/09/19 02/11/20 History empagliflozin [Jardiance] 10 mg PO DAILY 09/09/19 02/11/20 History linagliptin [Tradjenta] 5 mg PO DAILY 09/09/19 02/11/20 History simvastatin [Zocor] 10 mg PO HS 09/09/19 02/11/20 History acetaminophen [Tylenol Extra 1,000 mg PO AMHS 02/11/20 02/11/20 History Strength] docusate sodium 100 mg PO HS 02/11/20 02/11/20 History bnuczcvy-xvo-XF-lycopen-lutein 1 tab PO DAILY 02/11/20 02/11/20 History [Centrum Silver] apixaban [Eliquis] 2.5 mg PO Q12 02/12/20 02/12/20 History Patient History Social History Smoking Status: Never smoker Do You Dip or Chew Tobacco: No; Hx Alcohol Use: No Hx Substance Use: No Preferred Language: Montenegrin Communication Ability: Effective Business Systems Developer Required: No Beliefs That Will Affect Care: None Current Living Situation: Alone Feels Safe at Home: Yes Physical Exam Physical Exam: On exam he is alert and oriented. He has full strength in both lower extremities. He is nontender to the back itself. He is able to roll over in the bed on his own. Gait was not observed. Skin is clean dry and intact. Results & Data ([facility]) Vital Signs (Past 12 Hours) Vital Signs Temp Pulse Pulse Pulse Resp BP BP 02/12/20 07:00 36.5 C 63 20 112/61 02/12/20 02:21 61 02/12/20 01:55 36.8 C 77 16 02/12/20 01:38 66 18 116/54 L 02/12/20 00:06 69 13 02/11/20 23:31 67 21 02/11/20 23:30 68 19 112/56 L 02/11/20 23:20 68 20 02/11/20 23:10 70 02/11/20 23:01 70 18 02/11/20 23:00 71 19 132/61 02/11/20 22:50 70 21 02/11/20 22:48 68 16 02/11/20 22:31 82 21 02/11/20 22:30 72 16 133/60 BP Pulse Ox 02/12/20 07:00 98 02/12/20 02:21 02/12/20 01:55 137/70 97 02/12/20 01:38 97 02/12/20 00:06 97 02/11/20 23:31 95 02/11/20 23:30 97 02/11/20 23:20 96 02/11/20 23:10 95 02/11/20 23:01 96 02/11/20 23:00 96 02/11/20 22:50 96 02/11/20 22:48 98 02/11/20 22:31 02/11/20 22:[address] scan of the abdomen pelvis was compared to CT scan of the lumbar spine from October 2019 there is been improvement in terms of the endplate deformation. While this not dedicated spine films does not appear to be a significant collection of phlegmon in the canal.
[2020-02-12] MEDS: VANCOMYCIN HCL 1,000 MG in SODIUM CHLORIDE 0.9% 250 ML IV SCH ×2 (11:28→21:37)
--- NOTE | 2020-02-12 11:38 | Urology Consultation ---
Date of Consultation February 12, 2020 Assessment & Plan (1) Hydronephrosis: Assessment #1 hydronephrosis I believe this is due to back pressure from his urinary retention. Did review his CT scan he also has multiple renal cysts I did not see any renal or ureteral stones #2 urinary retention Patient voided 200 cc I then placed a Hernández and drained an additional 1500 cc This should help resolve his hydronephrosis #3 lower urinary tract symptoms with urinary retention Patient will probably need a TURP at some point He sees Dr. Barriga and can follow-up in our office History of Present Illness Attending Physician: Constantin Lemus MD History of Present Illness Patient is an 79-year-old white male admitted to the hospital with fever and confusion. He had a CT scan done which showed bilateral hydroureteronephrosis and a very distended urinary bladder. He also has multiple renal cysts. No renal or ureteral calculi seen He says he does have difficulty voiding and he also has urinary incontinence. He is on Avodart He gets up multiple times at night Stream is weak Denies dysuria or hematuria Occasional hesitancy He felt like he emptied his bladder Time frequency every 2 hours Allergies Allergy/AdvReac Type Severity Reaction Status Date / Time pseudoephedrine AdvReac uti Verified 02/11/20 23:14 [From [facility]] Home Medications Home Medications Medication Instructions Recorded Confirmed Type dutasteride 0.5 mg capsule 0.5 mg PO DAILY #90 cap 04/16/19 02/11/20 Rx aspirin [Aspir-81] 81 mg PO DAILY 09/09/19 02/11/20 History carvedilol [Coreg] 6.25 mg PO HS 09/09/19 02/11/20 History digoxin 250 mcg PO DAILY 09/09/19 02/11/20 History empagliflozin [Jardiance] 10 mg PO DAILY 09/09/19 02/11/20 History linagliptin [Tradjenta] 5 mg PO DAILY 09/09/19 02/11/20 History simvastatin [Zocor] 10 mg PO HS 09/09/19 02/11/20 History acetaminophen [Tylenol Extra 1,000 mg PO AMHS 02/11/20 02/11/20 History Strength] docusate sodium 100 mg PO HS 02/11/20 02/11/20 History ktkvzstw-uht-YL-lycopen-lutein 1 tab PO DAILY 02/11/20 02/11/20 History [Centrum Silver] apixaban [Eliquis] 2.5 mg PO Q12 02/12/20 02/12/20 History Patient History Medical History (Updated 02/12/20 @ 11:49 by Tj Wharton MD) Hydronephrosis Social History Smoking Status: Never smoker Do You Dip or Chew Tobacco: No; Hx Alcohol Use: No Hx Substance Use: No Preferred Language: Azeri Communication Ability: Effective Donor Services Technician Required: No Beliefs That Will Affect Care: None Current Living Situation: Alone Feels Safe at Home: Yes Review of Systems Gastrointestinal: no abdominal pain and no nausea Genitourinary: + urinary frequency, + urinary hesitancy, + urinary incontinen ce, + post-void dribbling and + nocturia Physical Exam Physical Exam: CONSTITUTIONAL Well-developed well-nourished male in no acute distress NEURO/PSYCH Alert and oriented Normal mood and affect Normal coordination SKIN Normal color and turgor No rashes NECK Normal visual inspection PULMONARY Normal rhythm an effort No respiratory distress CARDIAC No peripheral edema LYMPHATIC Femoral and inguinal lymph nodes not palpable ABDOMEN Soft Nontender No masses or hepatosplenomegaly GENITOURINARY Phallus shows normal male without lesion Meatus normal size and position Both testes in the scrotal sac without mass or tenderness Both epididymisis are palpably normal Scrotal skin is erythematous Anus and perineum are normal RECTAL EXAM Prostate 50 gram No nodules No induration No tenderness Seminal vesicles palpably normal Results & Data ([facility]) Vital Signs (Past 12 Hours) Vital Signs Temp Pulse Pulse Pulse Resp BP BP 02/12/20 11:06 36.5 C 64 20 135/62 02/12/20 07:00 36.5 C 63 20 112/61 02/12/20 02:21 61 02/12/20 01:55 36.8 C 77 16 02/12/20 01:38 66 18 116/54 L 02/12/20 00:06 69 13 BP Pulse Ox 02/12/20 11:06 99 02/12/20 07:00 98 02/12/20 02:21 02/12/20 01:55 137/70 97 02/12/20 01:38 97 02/12/20 00:06 97 Laboratory Results Laboratory Results - last 24 hr 02/11/20 02/11/20 02/11/20 19:37 19:37 19:37 WBC 22.28 H RBC 4.64 L Hgb 14.4 Hct 44.4 MCV 95.7 MCH 31.0 MCHC 32.4 RDW Std Deviation 52.7 H RDW Coeff of Shaniqua 15.0 H Plt Count 380 MPV 12.3 H Immature Gran % (Auto) 0.4 Neut % (Auto) 87.2 Lymph % (Auto) 6.8 [place] % (Auto) 2.8 Eos % (Auto) 2.7 Baso % (Auto) 0.1 Neut # (Auto) 19.43 H Lymph # (Auto) 1.51 [place] # (Auto) 0.62 H Eos # (Auto) 0.60 H Baso # (Auto) 0.03 Immature Gran # (Auto) 0.09 H PT 11.0 INR 1.0 APTT 28.7 PTT Ratio 1.0 Sodium 139 Potassium 4.0 Chloride 105 Carbon Dioxide 26 Anion Gap 9.0 BUN 25 H Creatinine 1.06 Est Cr Clr Drug Dosing 55.7 Est GFR ( Amer) 76.4 Est GFR (Non-Af Amer) 66.0 BUN/Creatinine Ratio 23.7 H Glucose 139 H POC Glucose Lactate Calcium 9.9 Magnesium 1.8 Total Bilirubin 0.9 Direct Bilirubin GGT AST 83 H ALT 93 H Alkaline Phosphatase 981 H Alk Phos Iso-Intestine Alk Phos Iso-Bone Alk Phos Iso-Liver Alk Phos Iso-Macro Hepat Alk Phos Iso-Placenta ALP Isoenzymes Interp Troponin I 0.018 Total Protein 7.5 Albumin 3.1 L Globulin 4.4 H Albumin/Globulin Ratio 0.7 L Prostate Specific Ag Procalcitonin Urine Color Urine Appearance Urine pH Ur Specific [place] Urine Protein Urine Glucose (UA) Urine Ketones Urine Blood Urine Nitrite Urine Bilirubin Urine Urobilinogen Ur Leukocyte Esterase Digoxin 02/11/20 02/11/20 02/11/20 19:37 19:37 20:35 WBC RBC Hgb Hct MCV MCH MCHC RDW Std Deviation RDW Coeff of Shaniqua Plt Count MPV Immature Gran % (Auto) Neut % (Auto) Lymph % (Auto) [place] % (Auto) Eos % (Auto) Baso % (Auto) Neut # (Auto) Lymph # (Auto) [place] # (Auto) Eos # (Auto) Baso # (Auto) Immature Gran # (Auto) PT INR APTT PTT Ratio Sodium Potassium Chloride Carbon Dioxide Anion Gap BUN Creatinine Est Cr Clr Drug Dosing Est GFR ( Amer) Est GFR (Non-Af Amer) BUN/Creatinine Ratio Glucose POC Glucose Lactate 1.2 Calcium Magnesium Total Bilirubin Direct Bilirubin GGT AST ALT Alkaline Phosphatase Alk Phos Iso-Intestine Alk Phos Iso-Bone Alk Phos Iso-Liver Alk Phos Iso-Macro Hepat Alk Phos Iso-Placenta ALP Isoenzymes Interp Troponin I Total Protein Albumin Globulin Albumin/Globulin Ratio Prostate Specific Ag Procalcitonin 0.39 Urine Color Urine Appearance Urine pH Ur Specific [place] Urine Protein Urine Glucose (UA) Urine Ketones Urine Blood Urine Nitrite Urine Bilirubin Urine Urobilinogen Ur Leukocyte Esterase Digoxin 1.3 02/11/20 02/12/20 02/12/20 22:20 06:14 06:14 WBC RBC Hgb Hct MCV MCH MCHC RDW Std Deviation RDW Coeff of Shaniqua Plt Count MPV Immature Gran % (Auto) Neut % (Auto) Lymph % (Auto) [place] % (Auto) Eos % (Auto) Baso % (Auto) Neut # (Auto) Lymph # (Auto) [place] # (Auto) Eos # (Auto) Baso # (Auto) Immature Gran # (Auto) PT INR APTT PTT Ratio Sodium Potassium Chloride Carbon Dioxide Anion Gap BUN Creatinine Est Cr Clr Drug Dosing Est GFR ( Amer) Est GFR (Non-Af Amer) BUN/Creatinine Ratio Glucose POC Glucose Lactate Calcium Magnesium Total Bilirubin 0.9 Direct Bilirubin 0.4 H GGT Pending AST 37 ALT 62 Alkaline Phosphatase 664 H Alk Phos Iso-Intestine Alk Phos Iso-Bone Alk Phos Iso-Liver Alk Phos Iso-Macro Hepat Alk Phos Iso-Placenta ALP Isoenzymes Interp Troponin I Total Protein 6.0 L Albumin 2.3 L Globulin Albumin/Globulin Ratio Prostate Specific Ag 0.136 Procalcitonin Urine Color Yellow Urine Appearance Clear Urine pH 5.0 Ur Specific [place] 1.028 Urine Protein Negative Urine Glucose (UA) 3+ H Urine Ketones Negative Urine Blood Negative Urine Nitrite Negative Urine Bilirubin Negative Urine Urobilinogen Negative Ur Leukocyte Esterase Negative Digoxin 02/12/20 02/12/20 02/12/20 06:14 07:36 09:00 WBC RBC Hgb Hct MCV MCH MCHC RDW Std Deviation RDW Coeff of Shaniqua Plt Count MPV Immature Gran % (Auto) Neut % (Auto) Lymph % (Auto) [place] % (Auto) Eos % (Auto) Baso % (Auto) Neut # (Auto) Lymph # (Auto) [place] # (Auto) Eos # (Auto) Baso # (Auto) Immature Gran # (Auto) PT INR APTT PTT Ratio Sodium Potassium Chloride Carbon Dioxide Anion Gap BUN Creatinine Est Cr Clr Drug Dosing Est GFR ( Amer) Est GFR (Non-Af Amer) BUN/Creatinine Ratio Glucose POC Glucose 166 H Lactate Calcium Magnesium Total Bilirubin Direct Bilirubin GGT AST ALT Alkaline Phosphatase Pending Cancelled Alk Phos Iso-Intestine Pending Cancelled Alk Phos Iso-Bone Pending Cancelled Alk Phos Iso-Liver Pending Cancelled Alk Phos Iso-Macro Hepat Pending Cancelled Alk Phos Iso-Placenta Pending Cancelled ALP Isoenzymes Interp Pending Cancelled Troponin I Total Protein Albumin Globulin Albumin/Globulin Ratio Prostate Specific Ag Procalcitonin Urine Color Urine Appearance Urine pH Ur Specific [place] Urine Protein Urine Glucose (UA) Urine Ketones Urine Blood Urine Nitrite Urine Bilirubin Urine Urobilinogen Ur Leukocyte Esterase Digoxin 02/12/20 11:22 WBC RBC Hgb Hct MCV MCH MCHC RDW Std Deviation RDW Coeff of Shaniqua Plt Count MPV Immature Gran % (Auto) Neut % (Auto) Lymph % (Auto) [place] % (Auto) Eos % (Auto) Baso % (Auto) Neut # (Auto) Lymph # (Auto) [place] # (Auto) Eos # (Auto) Baso # (Auto) Immature Gran # (Auto) PT INR APTT PTT Ratio Sodium Potassium Chloride Carbon Dioxide Anion Gap BUN Creatinine Est Cr Clr Drug Dosing Est GFR ( Amer) Est GFR (Non-Af Amer) BUN/Creatinine Ratio Glucose POC Glucose 141 H Lactate Calcium Magnesium Total Bilirubin Direct Bilirubin GGT AST ALT Alkaline Phosphatase Alk Phos Iso-Intestine Alk Phos Iso-Bone Alk Phos Iso-Liver Alk Phos Iso-Macro Hepat Alk Phos Iso-Placenta ALP Isoenzymes Interp Troponin I Total Protein Albumin Globulin Albumin/Globulin Ratio Prostate Specific Ag Procalcitonin Urine Color Urine Appearance Urine pH Ur Specific [place] Urine Protein Urine Glucose (UA) Urine Ketones Urine Blood Urine Nitrite Urine Bilirubin Urine Urobilinogen Ur Leukocyte Esterase Digoxin PG Care Time/CCT Total # of Minutes Spent Total Time Spent with Patient: Total time spent is greater than 50% in coordination of care (as documented) at patient's floor/unit and/or counseling patient: Coding Level of Care Code 43810 Initial Inpt Care Lvl 2 Diagnoses Hydronephrosis N13.30
--- NOTE | 2020-02-12 12:44 | Hospitalist Progress Note ---
Date of Service February 12, 2020 Assessment & Plan (1) Fever: with acute metabolic encephalopathy on presentation and leukocytosis and bacteremia -multiple differentials have been considered and admitting physician Dr. Parada started patient on broad spectrum antibiotics of Zosyn and Vancomycin consulted multiple specialties to identify possible sources of the bacteremia for Possible discitis of lumbar region: -orthopedic evaluation on 02/12/2020: "At this point the patient is having minimal back pain and no radicular complaints. There is evidence of improvement in terms of the endplate deformation on the new CT scan of the abdomen pelvis." -will check ESR and CRP for rule out acute cholecystitis Elevated alkaline phosphatase -gastroenterology evaluation 02/12/2020: "CT abd and US abd w/ mild gb thickening, sludge but no stones, common hepatic duct dilated but no evidence of CBD stone or obstruction. His ALKP is significant elevated. GGT pending. Concerned his ALKP elevation could be non-hepatic, no definite biliary cause of serologic abnormality." -general surgery 02/12/2020 " there is no concern for acute cholecystitis based on imaging and labs we will defer on surgical intervention at this time -GGT lab pending results (2) Bacteremia: -Gram positive cocci in chains in admission blood cultures -continue IV antibiotics and obtain repeat blood cultures on 02/13/2020 while a waiting speciation (3) Hydronephrosis: Benign Prostate Hypertrophy, chronic bladder outlet obstruction, bilateral hydronephrosis, urinary retention -02/12/2020 urology assessment that hydronephrosis on admission imaging was from urinary retention (02/12/2020 Patient voided 200 cc then when urology service placed a Hernández there was additional 1500 cc drained). -Urology service comments that patient will probably need a TURP at some point -PSA 0.136 which is not elevated above reference range of normal (4) PAF (paroxysmal atrial fibrillation): -rate controlled with digoxin -he is taking Coreg only in the nighttime because of recent history of hypotension. -patient also says his Eliquis was changed to once daily but will give twice daily while he is here -he follows with Cardiology in [place] -has pacemaker History of chronic systolic CHF with EF of 35% as per the patient -He is not taking Lasix anymore at home as per patient -monitor volume status Hypertension -Continue his home carvedilol Diabetes mellitus type 2 without assisted current use of insulin -Hold his home medications. -on insulin sliding scale while in the hospital Chronic lymphedema of the right lower extremity -patient reports his right leg is swollen for last 30 years. Deep venous thrombosis prophylaxis, on Eliquis. Level 1 full code only if there is a chance of recovery as per discussion with the patient by admitting physician Admission and Anticipated Discharge Date Admission Date: February 12, 2020 Subjective No distress. Patient has a core analyst at the bedside. Patient is alert and awake and pleasant. He answers all questions appropriately. denies acute pain anywhere of the body. no dizziness. he does not feel nausea now. no lightheadedness Review of Systems Review of Systems: All systems reviewed & are unremarkable except as noted in Subjective Physical Exam Constitutional: comfortable Eyes: PERRL, conjunctivae normal, anicteric sclerae EOM intact bilaterally ENMT: external ear and nose normal, oropharynx normal Neck: normal visual inspection Respiratory: normal respiratory effort, lungs clear to auscultation Cardiovascular: Rate/Rhythm: + bradycardic Gastrointestinal (Abdomen): normal bowel sounds, soft, nontender, no hepatosplenomegaly Musculoskeletal: Head/Neck/Chest: normocephalic and head atraumatic Neurologic: PERRL, EOMI, accommodation nl, no face palsy, no dysarthria Psychiatric: A+Ox3, euthymic affect Results & Data Results & Data ([facility]) Vital Signs (Past 12 Hours) Vital Signs Temp Pulse Pulse Pulse Resp BP BP 02/12/20 11:06 36.5 C 64 20 135/62 02/12/20 07:00 36.5 C 63 20 112/61 02/12/20 02:21 61 02/12/20 01:55 36.8 C 77 16 02/12/20 01:38 66 18 116/54 L BP Pulse Ox 02/12/20 11:06 99 02/12/20 07:00 98 02/12/20 02:21 02/12/20 01:55 137/70 97 02/12/20 01:38 97
[2020-02-12] MEDS: DIGOXIN 0.25 MG TAB PO SCH (15:41)
[2020-02-12] MEDS: carvediloL 6.25 MG TAB PO SCH (20:22)
[2020-02-12] MEDS: DOCUSATE SODIUM 100 MG CAP PO SCH (20:22)
[2020-02-13] MEDS: AVODART~ORDER AWAITING ACTION SCH ×3 (00:41→16:07)
[2020-02-13 05:59] LABS: Basophils # (auto) 0.02 K/uL (0-0.2); Basophils % (auto) 0.2 %; Eosinophils # (auto) 0.43 K/uL (0-0.5); Eosinophils % (auto) 3.6 %; Hematocrit (blood only) 36.6 % (42-52); Hemoglobin 11.5 g/dL (14.0-18.0); Immature Granulocytes # (auto) 0.05 K/uL (0.00-0.02); Immature Granulocytes % (auto) 0.4 %; Lymphocytes # (auto) 0.99 K/uL (1.2-3.4); Lymphocytes % (auto) 8.2 %; Mean Corpuscular Hemoglobin 30.3 pg (25-34); Mean Corpuscular Hgb Conc 31.4 g/dL (32-36); Mean Corpuscular Volume 96.3 fL (80-100); Mean Platelet Volume 11.3 fL (7.4-10.4); Monocytes # (auto) 0.77 K/uL (0.11-0.59); Monocytes % (auto) 6.4 %; Neutrophils # (auto) 9.84 K/uL (1.4-6.5); Neutrophils % (auto) 81.2 %; Platelet Count 256 K/uL (130-400); RDW Standard Deviation 53.2 fL (36.4-46.3)
[2020-02-13 06:34] LABS: BUN Creatinine Ratio 22.9 (10-20); Creatinine Clr Calc Pharmacy 60.3 ml/min; Est GFR (African American) 91.9; Est GFR (Non-African American) 79.3; Magnesium 1.7 mg/dl (1.8-2.4); Potassium 3.9 mmol/L (3.5-5.1)
[2020-02-13 06:37] LABS: C Reactive Protein 13.9 mg/dl (0-0.29)
[2020-02-13 06:58] LABS: Estimated Average Glucose 200 mg/dl; Hemoglobin A1C 8.6 % (4.5-5.6)
[2020-02-13] MEDS: ASPIRIN 81 MG ECTAB PO SCH (08:07)
[2020-02-13] MEDS: CEROVITE ADV FORMULA TAB PO SCH (08:07)
[2020-02-13] MEDS: APIXABAN 2.5 MG TAB PO SCH ×2 (08:07→21:33)
[2020-02-13] MEDS: INSULIN ASPART 100 UNITS/ML 3 ML PEN SC SCH ×4 (08:08→21:33)
[2020-02-13] MEDS: PIPERACILLIN/TAZOBACTAM 3.375 GM in DEXTROSE 5% 100 ML IV SCH ×2 (08:13→16:05)
[2020-02-13] MEDS: MAGNESIUM OXIDE 400 MG TAB PO SCH (08:13)
[2020-02-13] MEDS: MAGNESIUM SULFATE / D5W 1 GM/100 ML BAG IV SCH ×2 (08:14→11:20)
--- NOTE | 2020-02-13 08:45 | Surgery Progress Note ---
Date of Service February 13, 2020 Assessment & Plan (1) Bacteremia: No evidence of gallbladder etiology and no plans for surgical intervention. Clinically much improved. His white blood cell count is dramatically improved as well. I would recommend following up with his LFTs. We will sign off. Please call us with any questions or concerns. Admission and Anticipated Discharge Date Admission Date: February 12, 2020 Subjective Patient continues to feel well. Denies abdominal pain or nausea. Tolerating a regular diet without any issue. Physical Exam Physical Exam: Alert no acute distress Abdomen is soft nontender. Nondistended. Results & Data ([facility]) Vital Signs (Past 12 Hours) Vital Signs Temp Pulse Pulse Resp BP Pulse Ox 02/13/20 07:44 36.4 C L 63 16 133/73 97 02/13/20 07:09 60 02/13/20 03:34 36.6 C 64 18 104/44 L 97 02/13/20 02:33 60 02/12/20 22:29 36.9 C 67 20 131/64 98 PG Care Time/CCT Total # of Minutes Spent Total Time Spent with Patient: Total time spent is greater than 50% in coordination of care (as documented) at patient's floor/unit and/or counseling patient: Coding Level of Care Code 09387 Subseq Hosp Care Lvl 2 Diagnoses Bacteremia R78.81
--- NOTE | 2020-02-13 09:21 | Hospitalist Progress Note ---
Date of Service February 13, 2020 Assessment & Plan (1) Fever: with acute metabolic encephalopathy on presentation and leukocytosis and bacteremia -multiple differentials have been considered and admitting physician Dr. Parada started patient on broad spectrum antibiotics of Zosyn and Vancomycin consulted multiple specialties to identify possible sources of the bacteremia for Possible discitis of lumbar region: -orthopedic evaluation on 02/12/2020: "At this point the patient is having minimal back pain and no radicular complaints. There is evidence of improvement in terms of the endplate deformation on the new CT scan of the abdomen pelvis." -has both elevated ESR and CRP for rule out acute cholecystitis Elevated alkaline phosphatase -gastroenterology evaluation 02/12/2020: "CT abd and US abd w/ mild gb thickening, sludge but no stones, common hepatic duct dilated but no evidence of CBD stone or obstruction. His ALKP is significant elevated. GGT pending. Concerned his ALKP elevation could be non-hepatic, no definite biliary cause of serologic abnormality." -general surgery 02/12/2020 " there is no concern for acute cholecystitis based on imaging." follow up note on 02/13/2020 "No evidence of gallbladder etiology and no plans for surgical intervention." -GGT lab elevated as 620 elevated; defer to gastroenterology on interpretation of this abnormal liver function test, trend AST/ALT (2) Bacteremia: -Gram positive cocci in chains in admission blood cultures -continue IV antibiotics and obtain repeated blood cultures on 02/13/2020 while awaiting speciation; there is likelihood that patient does not have MRSA infection but since it is unclear where source of bacteremia is coming from, will continue the Vancomycin woth Zosyn for now (3) Hydronephrosis: Benign Prostate Hypertrophy, chronic bladder outlet obstruction, bilateral hydronephrosis, urinary retention -02/12/2020 urology assessment that hydronephrosis on admission imaging was from urinary retention (02/12/2020 Patient voided 200 cc then when urology service placed a Hernández there was additional 1500 cc drained). -Urology service comments that patient will probably need a TURP at some point -PSA 0.136 which is not elevated above reference range of normal (4) PAF (paroxysmal atrial fibrillation): -rate controlled with digoxin -he is taking Coreg only in the nighttime because of recent history of hypotension. -patient also says his Eliquis was changed to once daily but will give twice daily while he is here -he follows with Cardiology in [place] -has pacemaker History of chronic systolic CHF with EF of 35% as per the patient -He is not taking Lasix anymore at home as per patient -monitor volume status Hypomagnesemia -serum magnesium 1.7 on 02/13/2020, give IV and oral magnesium Hypertension -Continue his home carvedilol Diabetes mellitus type 2 without long goods drier current use of insulin -Hold his home medications. -on insulin sliding scale while in the hospital Chronic lymphedema of the right lower extremity -patient reports his right leg is swollen for last 30 years. Deep venous thrombosis prophylaxis, on Eliquis. Level 1 full code only if there is a chance of recovery as per discussion with the patient by admitting physician Admission and Anticipated Discharge Date Admission Date: February 12, 2020 Subjective no fevers overnight. no acute distress. patient denies acute pain anywhere. breathing on room air. no dizziness. no headache. alert and cooperative and pleasant Review of Systems Review of Systems: All systems reviewed & are unremarkable except as noted in Subjective Physical Exam Constitutional: comfortable Eyes: PERRL, conjunctivae normal, anicteric sclerae EOM intact bilaterally ENMT: external ear and nose normal, oropharynx normal Neck: normal visual inspection Respiratory: normal respiratory effort, lungs clear to auscultation Cardiovascular: Rate/Rhythm: + bradycardic Gastrointestinal (Abdomen): normal bowel sounds, soft, nontender, no hepatosplenomegaly Musculoskeletal: Head/Neck/Chest: normocephalic and head atraumatic Neurologic: PERRL, EOMI, accommodation nl, no face palsy, no dysarthria Psychiatric: A+Ox3, euthymic affect Results & Data Results & Data ([facility]) Vital Signs (Past 12 Hours) Vital Signs Temp Pulse Pulse Resp BP Pulse Ox 02/13/20 07:44 36.4 C L 63 16 133/73 97 02/13/20 07:09 60 02/13/20 03:34 36.6 C 64 18 104/44 L 97 02/13/20 02:33 60 02/12/20 22:29 36.9 C 67 20 131/64 98
[2020-02-13] MEDS ORDERED: VANCOMYCIN TROUGH ONE (09:30)
[2020-02-13 10:24] LABS: Bilirubin Direct 0.3 mg/dl (0-0.2); Bilirubin,Total 0.6 mg/dl (0.2-1); Total Protein 5.6 gm/dl (6.4-8.2)
--- NOTE | 2020-02-13 11:09 | Pharmacy Report ---
Pharmacy Abx Dose Short Note - Date of Service February 13, 2020 - Assessment & Plan Assessment 79 year old M receiving vancomycin/zosyn for treatment of GI infection/possible discitis/bacteremia Day # 3 of antimicrobial therapy. Plan Vancomycin * Trough level came back subtherapeutic at ~13 mcg/ml - goal ~15-20 mcg/ml for bacteremia * Will increase vancomycin dosing to 1250 mg iv q 12 hrs to achieve a higher trough level * Renal function remains stable today / plan to recheck trough in next 1-2 days to ensure therapeutic * Sensitivities for blood cultures still pending at this time Pharmacy will continue to follow and will adjust dose/frequency as necessary. Thank you.
--- NOTE | 2020-02-13 12:03 | Urology Progress Note ---
Date of Service February 13, 2020 Assessment & Plan (1) Hydronephrosis: Assessment Patient with retention and hydronephrosis I ordered a ANTHONY for tomorrow AM to be certain that his hydronephrosis has improved Will recheck patient tomorrow. Will need outpatient outlet procedure for his retention Admission and Anticipated Discharge Date Admission Date: February 12, 2020 Subjective The patient had a ledesma placed yesterday. It has been draining without issues. He is feeling much better today. No pain. No fevers. Patient continues to feel well. Denies abdominal pain or nausea. Tolerating a regular diet without any issue. Review of Systems Review of Systems: All systems reviewed & are unremarkable except as noted in HPI & below Physical Exam Physical Exam: abdomen soft urine clear ledesma in place Results & Data ([facility]) Vital Signs (Past 12 Hours) Vital Signs Temp Pulse Pulse Resp BP Pulse Ox 02/13/20 11:13 36.6 C 60 18 124/58 L 97 02/13/20 07:44 36.4 C L 63 16 133/73 97 02/13/20 07:09 60 02/13/20 03:34 36.6 C 64 18 104/44 L 97 02/13/20 02:33 60 PG Care Time/CCT Total # of Minutes Spent Total Time Spent with Patient: Total time spent is greater than 50% in coordination of care (as documented) at patient's floor/unit and/or counseling patient: C[place] [address] Subseq Hosp Care Lvl 3 Patient Type Established History Problem Focused Exam Problem Focused Medical Decision Making Moderate Complexity Diagnoses Hydronephrosis N13.30 Time Spent (min) 20
[2020-02-13] MEDS: VANCOMYCIN HCL 1,000 MG in SODIUM CHLORIDE 0.9% 250 ML IV SCH (12:32)
[2020-02-13] MEDS: INSULIN GLARGINE SOLOSTAR 100 UNITS/ML 3 ML PEN SC SCH (15:05)
[2020-02-13] MEDS: DIGOXIN 0.25 MG TAB PO SCH (16:05)
[2020-02-13] MEDS: carvediloL 6.25 MG TAB PO SCH (21:33)
[2020-02-13] MEDS: DOCUSATE SODIUM 100 MG CAP PO SCH (21:33)
[2020-02-13] MEDS ORDERED: VANCOMYCIN HCL 1,250 MG in SODIUM CHLORIDE 0.9% 250 ML IV SCH (22:00)
[2020-02-14] MEDS: AVODART~ORDER AWAITING ACTION SCH ×3 (02:10→15:54)
[2020-02-14] MEDS: PIPERACILLIN/TAZOBACTAM 3.375 GM in DEXTROSE 5% 100 ML IV SCH ×3 (02:10→15:50)
[2020-02-14 06:24] LABS: Basophils # (auto) 0.03 K/uL (0-0.2); Basophils % (auto) 0.3 %; Eosinophils # (auto) 0.57 K/uL (0-0.5); Eosinophils % (auto) 6.6 %; Hematocrit (blood only) 35.1 % (42-52); Hemoglobin 11.2 g/dL (14.0-18.0); Immature Granulocytes # (auto) 0.05 K/uL (0.00-0.02); Immature Granulocytes % (auto) 0.6 %; Lymphocytes # (auto) 1.21 K/uL (1.2-3.4); Mean Corpuscular Hemoglobin 30.8 pg (25-34); Mean Corpuscular Hgb Conc 31.9 g/dL (32-36); Mean Corpuscular Volume 96.4 fL (80-100); Mean Platelet Volume 11.2 fL (7.4-10.4); Monocytes # (auto) 0.69 K/uL (0.11-0.59); Neutrophils # (auto) 6.07 K/uL (1.4-6.5); Neutrophils % (auto) 70.5 %; Platelet Count 262 K/uL (130-400); RDW Coefficient of Variation 14.9 % (11.5-14.5); Red Blood Count 3.64 M/uL (4.7-6.1); White Blood Count 8.62 K/uL (4.8-10.8)
[2020-02-14 06:50] LABS: BUN Creatinine Ratio 23.3 (10-20); Calcium 8.7 mg/dl (8.5-10.1); Creatinine Clr Calc Pharmacy 74.4 ml/min; Est GFR (Non-African American) 87.1; Potassium 3.6 mmol/L (3.5-5.1)
[2020-02-14 06:53] LABS: Albumin Globulin Ratio 0.6 (0.9-2); Bilirubin,Total 0.6 mg/dl (0.2-1); Globulin 3.5 gm/dl (2.5-4.0); Total Protein 5.5 gm/dl (6.4-8.2)
[2020-02-14] MEDS: CEROVITE ADV FORMULA TAB PO SCH (08:38)
[2020-02-14] MEDS: APIXABAN 2.5 MG TAB PO SCH ×2 (08:38→20:14)
[2020-02-14] MEDS: ASPIRIN 81 MG ECTAB PO SCH (08:38)
[2020-02-14] MEDS: INSULIN GLARGINE SOLOSTAR 100 UNITS/ML 3 ML PEN SC SCH (08:38)
[2020-02-14] MEDS: INSULIN ASPART 100 UNITS/ML 3 ML PEN SC SCH ×4 (08:38→20:28)
[2020-02-14] MEDS: MAGNESIUM OXIDE 400 MG TAB PO SCH (08:38)
--- NOTE | 2020-02-14 09:03 | Hospitalist Progress Note ---
Date of Service February 14, 2020 Assessment & Plan (1) Fever: with acute metabolic encephalopathy on presentation and leukocytosis and bacteremia -multiple differentials have been considered and admitting physician Dr. Parada started patient on broad spectrum antibiotics of Zosyn and Vancomycin consulted multiple specialties to identify possible sources of the bacteremia for Possible discitis of lumbar region: -orthopedic evaluation on 02/12/2020: "At this point the patient is having minimal back pain and no radicular complaints. There is evidence of improvement in terms of the endplate deformation on the new CT scan of the abdomen pelvis." -has both elevated ESR and CRP Elevated alkaline phosphatase ruled out acute cholecystitis -gastroenterology evaluation 02/12/2020: "CT abd and US abd w/ mild gb thickening, sludge but no stones, common hepatic duct dilated but no evidence of CBD stone or obstruction. His ALKP is significant elevated. GGT pending. Concerned his ALKP elevation could be non-hepatic, no definite biliary cause of serologic abnormality." -general surgery 02/12/2020 " there is no concern for acute cholecystitis based on imaging." follow up note on 02/13/2020 "No evidence of gallbladder etiology and no plans for surgical intervention." -GGT lab elevated as 620 elevated; defer to gastroenterology on interpretation of this abnormal liver function test, trend AST/ALT -as of 02/14/2020 labs alkaline phosphatase stable around 550 and normal AST and normal ALT (2) Bacteremia: -was empirically on Vancomycin and Zosyn in the beginning of this hospital stay -The bacteremia appears to be strep species in the admission blood culture and in the urine. Vancomycin stopped on 02/13/2020 and Zosyn to be continued -as of 02/14/2020 WBC normalized to 8,000; will continue Zosyn for now but likely can be switched to ceftriaxone once a day dosing in near future (3) Hydronephrosis: Benign Prostate Hypertrophy, chronic bladder outlet obstruction, bilateral hydronephrosis, urinary retention -02/12/2020 urology assessment that hydronephrosis on admission imaging was from urinary retention (02/12/2020 Patient voided 200 cc then when urology service placed a Ledesma there was additional 1500 cc drained). -Urology service comments that patient will probably need a TURP at some point -PSA 0.136 which is not elevated above reference range of normal -renal ultrasound ordered by urology to monitor the hydronephrosis on 02/14/2020 (4) PAF (paroxysmal atrial fibrillation): -rate controlled with digoxin -he is taking Coreg only in the nighttime because of recent history of hypotension. 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 -on insulin sliding scale while in the hospital Chronic lymphedema of the right lower extremity -chronic right lower extremity swelling, present on admission -patient reports his right leg is swollen for last 30 years. Deep venous thrombosis prophylaxis, on Eliquis. Level 1 full code only if there is a chance of recovery as per discussion with the patient by admitting physician Admission and Anticipated Discharge Date Admission Date: February 12, 2020 Subjective -renal ultrasound ordered by urology to monitor the hydronephrosis on 02/14/2020. Patient examined by hospitalist prior to going down to imaging. No acute distress. patient denies acute pain. breathing on room air. Patient has ledesma. patient is pleasant and answers all questions appropriately Review of Systems Review of Systems: All systems reviewed & are unremarkable except as noted in Subjective Physical Exam Constitutional: comfortable Eyes: PERRL, conjunctivae normal, anicteric sclerae EOM intact bilaterally ENMT: external ear and nose normal, oropharynx normal Neck: normal visual inspection Respiratory: normal respiratory effort, lungs clear to auscultation Cardiovascular: Rate/Rhythm: + bradycardic Gastrointestinal (Abdomen): normal bowel sounds, soft, nontender, no hepatosplenomegaly Musculoskeletal: Head/Neck/Chest: normocephalic and head atraumatic Extremities: + lower leg abnormality (chronic right lower extremity swelling, present on admission) Neurologic: PERRL, EOMI, accommodation nl, no face palsy, no dysarthria Psychiatric: A+Ox3, euthymic affect Genitourinary: + penis abnormality (ledesma) Results & Data Results & Data ([facility]) Vital Signs (Past 12 Hours) Vital Signs Temp Pulse Pulse Resp BP Pulse Ox 02/14/20 07:13 61 02/14/20 07:11 36.6 C 81 16 128/75 92 02/14/20 03:12 36.7 C 59 L 18 142/67 H 97 02/13/20 22:53 36.7 C 68 16 119/63 95
--- NOTE | 2020-02-14 10:14 | Ultrasound Report ---
RENAL ULTRASOUND HISTORY: evaluate for resolution of hydronephrosis COMPARISON: Abdomen and pelvis CT 02/11/2020. FINDINGS: Right kidney: 11.5 cm multiple cysts with the largest in the upper pole measuring 3.2 cm. No hydronep hrosis. Normal corticomedullary differentiation and cortical thickness. Left kidney: 13.7 cm. Multiple cysts with the largest in the upper pole measuring 8.1 cm. No hydronep hrosis. Normal corticomedullary differentiation and cortical thickness. Bladder: Decompressed by the Hernández catheter. Marked bladder wall thickening. Small amount of gas with in the bladder lumen likely due to the catheterization. IMPRESSION: 1. No hydronephrosis. 2. Decompressed bladder secondary to the Hernández catheter. Marked bladder wall thickening. This could b e due to chronic outlet obstruction or a cystitis. Recommend correlation with urinalysis. ACT 112: Negative or not required by law. Electronically signed by: Trenton Rosas M.D. 02/14/2020 10:13 AM
--- NOTE | 2020-02-14 11:47 | Urology Progress Note ---
Date of Service February 14, 2020 Assessment & Plan (1) Hydronephrosis: Assessment Patient with retention and hydronephrosis ANTHONY without hydronephrosis. i Will need outpatient outlet procedure for his retention Admission and Anticipated Discharge Date Admission Date: February 12, 2020 Subjective Patient denies issues with catheter today. ANTHONY today shows that the hydronephro sis has resolved. Patient overall feels well. No F/C No SOB. Patient continues to feel well. Denies abdominal pain or nausea. Tolerating a regular diet without any issue. Review of Systems Review of Systems: All systems reviewed & are unremarkable except as noted in HPI & below Physical Exam Physical Exam: abdomen soft urine clear ledesma in place Results & Data ([facility]) Vital Signs (Past 12 Hours) Vital Signs Temp Pulse Pulse Resp BP Pulse Ox 02/14/20 11:08 36.7 C 61 16 128/66 98 02/14/20 07:13 61 02/14/20 07:11 36.6 C 81 16 128/75 92 02/14/20 03:12 36.7 C 59 L 18 142/67 H 97 PG Care Time/CCT Total # of Minutes Spent Total Time Spent with Patient: Total time spent is greater than 50% in coordination of care (as documented) at patient's floor/unit and/or counseling patient: Coding Level of Care Code 21920 Subseq Hosp Care Lvl 2 History Problem Focused Exam Problem Focused Medical Decision Making Low Complexity Diagnoses Hydronephrosis N13.30 Time Spent (min) 15
[2020-02-14] MEDS: DIGOXIN 0.25 MG TAB PO SCH (15:51)
[2020-02-14] MEDS: carvediloL 6.25 MG TAB PO SCH (20:14)
[2020-02-14] MEDS: DOCUSATE SODIUM 100 MG CAP PO SCH (20:14)
[2020-02-15] MEDS: AVODART~ORDER AWAITING ACTION SCH ×4 (01:56→23:13)
[2020-02-15] MEDS: PIPERACILLIN/TAZOBACTAM 3.375 GM in DEXTROSE 5% 100 ML IV SCH ×4 (01:57→23:15)
[2020-02-15 05:41] LABS: Basophils # (auto) 0.01 K/uL (0-0.2); Basophils % (auto) 0.1 %; Eosinophils # (auto) 0.12 K/uL (0-0.5); Eosinophils % (auto) 1.5 %; Hematocrit (blood only) 39.5 % (42-52); Hemoglobin 12.4 g/dL (14.0-18.0); Immature Granulocytes # (auto) 0.06 K/uL (0.00-0.02); Immature Granulocytes % (auto) 0.8 %; Lymphocytes # (auto) 0.85 K/uL (1.2-3.4); Lymphocytes % (auto) 10.9 %; Mean Corpuscular Hemoglobin 30.2 pg (25-34); Mean Corpuscular Hgb Conc 31.4 g/dL (32-36); Mean Corpuscular Volume 96.1 fL (80-100); Mean Platelet Volume 10.8 fL (7.4-10.4); Monocytes # (auto) 0.43 K/uL (0.11-0.59); Monocytes % (auto) 5.5 %; Neutrophils # (auto) 6.33 K/uL (1.4-6.5); Neutrophils % (auto) 81.2 %; Platelet Count 284 K/uL (130-400); RDW Coefficient of Variation 14.3 % (11.5-14.5); RDW Standard Deviation 50.8 fL (36.4-46.3); Red Blood Count 4.11 M/uL (4.7-6.1)
[2020-02-15 06:18] LABS: BUN Creatinine Ratio 17.4 (10-20); Calcium 8.8 mg/dl (8.5-10.1); Creatinine Clr Calc Pharmacy 60.5 ml/min; Est GFR (African American) 91.9; Est GFR (Non-African American) 79.3; Potassium 3.9 mmol/L (3.5-5.1)
[2020-02-15 06:20] LABS: Albumin Globulin Ratio 0.5 (0.9-2); Bilirubin,Total 0.5 mg/dl (0.2-1); Globulin 3.8 gm/dl (2.5-4.0); Total Protein 5.8 gm/dl (6.4-8.2)
--- NOTE | 2020-02-15 07:47 | Hospitalist Progress Note ---
Date of Service February 15, 2020 Assessment & Plan (1) Fever: with acute metabolic encephalopathy on presentation and leukocytosis and bacteremia -multiple differentials have been considered and admitting physician Dr. Parada started patient on broad spectrum antibiotics of Zosyn and Vancomycin consulted multiple specialties to identify possible sources of the bacteremia for Possible discitis of lumbar region: -orthopedic evaluation on 02/12/2020: "At this point the patient is having minimal back pain and no radicular complaints. There is evidence of improvement in terms of the endplate deformation on the new CT scan of the abdomen pelvis." -has both elevated ESR and CRP Elevated alkaline phosphatase ruled out acute cholecystitis -gastroenterology evaluation 02/12/2020: "CT abd and US abd w/ mild gb thickening, sludge but no stones, common hepatic duct dilated but no evidence of CBD stone or obstruction. His ALKP is significant elevated. GGT pending. Concerned his ALKP elevation could be non-hepatic, no definite biliary cause of serologic abnormality." -general surgery 02/12/2020 " there is no concern for acute cholecystitis based on imaging." follow up note on 02/13/2020 "No evidence of gallbladder etiology and no plans for surgical intervention." -GGT lab elevated as 620 elevated; defer to gastroenterology on interpretation of this abnormal liver function test, trend AST/ALT -as of 02/14/2020 labs alkaline phosphatase stable around 550 and normal AST and normal ALT (2) Bacteremia: -was empirically on Vancomycin and Zosyn in the beginning of this hospital stay -The bacteremia appears to be strep species in the admission blood culture and in the urine. Vancomycin stopped on 02/13/2020 and Zosyn to be continued -as of 02/14/2020 WBC normalized to 8,600. continued Zosyn -as of 02/15/2020 AM the WBC remains normalized, however in the speech therapist early intervention hours prior to the arrival of daytime hospitalist shift, the nurses had difficulty finding a normal body temperature and fish bait picker ordered FEDE hugger to raise measurements of body temperature - Patient denied any symptoms - no chills, no tremors, no pain, no problems with breathing. all other vital signs such as heart rate and respiratory rate and blood pressures normal. TSH normal. will continue IV Zosyn for now. patient agrees to work with PT/OT evaluations (3) Hydronephrosis: Benign Prostate Hypertrophy, chronic bladder outlet obstruction, bilateral hydronephrosis, urinary retention -02/12/2020 urology assessment that hydronephrosis on admission imaging was from urinary retention (02/12/2020 Patient voided 200 cc then when urology service placed a Ledesma there was additional 1500 cc drained). -Urology service comments that patient will probably need a TURP at some point -PSA 0.136 which is not elevated above reference range of normal -renal ultrasound ordered by urology on 02/14/2020 appears to show resolution of hydronephrosis. urology note also commented "Will need outpatient outlet procedure for his retention" so this seems to suggest that patient will likely need to remain with ledesma which was started on this admission when medically gianni dy for discharge (4) PAF (paroxysmal atrial fibrillation): -rate controlled with digoxin -he is taking Coreg only in the nighttime because of recent history of hypotension. 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 -on insulin sliding scale while in the hospital Chronic lymphedema of the right lower extremity -chronic right lower extremity swelling, present on admission -patient reports his right leg is swollen for last 30 years. Deep venous thrombosis prophylaxis, on Eliquis. Level 1 full code only if there is a chance of recovery as per discussion with the patient by admitting physician Admission and Anticipated Discharge Date Admission Date: February 12, 2020 Subjective as of 02/15/2020 AM the WBC remains normalized, however in the speech therapist early intervention hours prior to the arrival of daytime hospitalist shift, the nurses had difficulty finding a normal body temperature and fish bait picker ordered FEDE hugger to raise measurements of body temperature - Patient denied any symptoms - no c hills, no tremors, no pain, no problems with breathing. all other vital signs such as heart rate and respiratory rate and blood pressures normal. TSH normal. will continue IV Zosyn for now. patient agrees to work with PT/OT evaluations Review of Systems Review of Systems: All systems reviewed & are unremarkable except as noted in Subjective Physical Exam Constitutional: comfortable Eyes: PERRL, conjunctivae normal, anicteric sclerae EOM intact bilaterally ENMT: external ear and nose normal, oropharynx normal Neck: normal visual inspection Respiratory: normal respiratory effort, lungs clear to auscultation Cardiovascular: Rate/Rhythm: + bradycardic Gastrointestinal (Abdomen): normal bowel sounds, soft, nontender, no hepatosplenomegaly Musculoskeletal: Head/Neck/Chest: normocephalic and head atraumatic Extremities: + lower leg abnormality (chronic right lower extremity swelling, present on admission) Neurologic: PERRL, EOMI, accommodation nl, no face palsy, no dysarthria Psychiatric: A+Ox3, euthymic affect Genitourinary: + penis abnormality (ledesma) Results & Data Results & Data ([facility]) Vital Signs (Past 12 Hours) Vital Signs Temp Pulse Resp BP BP Pulse Ox 02/15/20 07:34 37.4 C 02/15/20 07:15 61 18 123/71 96 02/15/20 06:50 35.9 C L 02/15/20 06:20 35.2 C L 02/15/20 05:53 35.2 C L 02/15/20 05:01 61 18 158/82 H 99 02/15/20 04:30 35 C L 02/14/20 22:22 37 C 65 20 134/70 96
[2020-02-15] MEDS: MAGNESIUM OXIDE 400 MG TAB PO SCH (08:22)
[2020-02-15] MEDS: CEROVITE ADV FORMULA TAB PO SCH (08:22)
[2020-02-15] MEDS: ASPIRIN 81 MG ECTAB PO SCH (08:22)
[2020-02-15] MEDS: APIXABAN 2.5 MG TAB PO SCH ×2 (08:23→20:00)
[2020-02-15] MEDS: INSULIN GLARGINE SOLOSTAR 100 UNITS/ML 3 ML PEN SC SCH (08:23)
[2020-02-15] MEDS: INSULIN ASPART 100 UNITS/ML 3 ML PEN SC SCH ×3 (08:24→20:30)
--- NOTE | 2020-02-15 10:50 | Gastroenterology Progress Note ---
Date of Service February 15, 2020 Assessment & Plan (1) Abnormal LFTs: Pt is a 79-year-old male who was admitted last week w N/V, abd pain, confusion, noted to have elevated alk phos and GGT labs. Abdominal imaging w/ mild gallbladder thickening, sludge but no stones, common hepatic duct dilated (9mm) but no signs of stones/obstruction. On exam today w/o abd pain, n/v, eating and moving bowels well, no jaundice noted. He grew alpha strep in Urine and group B strep in blood cx. Currently on Zosyn IV. - F/U alk phos isoenzyme lab (on [facility]) - Unable to perform MRCP given pacemaker status - Obtain CT pancreas protocol - Consider outpt EUS eval though would need Cardiology eval first on his perioperative/anesthesia risks. - IV antibx for UTI and bacteremia per primary team. Admission and Anticipated Discharge Date Admission Date: February 12, 2020 Supervising Physician Co-Signing Physician Notes Attg add: I interviewed and examined pt, reviewed chart and labs. Pt with persistent AP elevation, as well as GGT elevation. Panc protocol CT shows mild CHD dilation. He is not on any meds commonly associated with cholestatic hepatitis. Ap recently normal in August. A/P: Etiology of AP unclear - DILI? bile duct obstruction? Renal and bone issues may contribute AP elevation, but GGT suggests that there is some element of cholestasis as well. Subjective Pt hypothermic this AM, warming blanket on. He feels well, denies any abd pain, n/v, is moving bowels and eating well. Noted Alk phose remains up in 500s, GGT elevated. Alk phos isoenzyme results not back from [facility] Review of Systems Review of Systems: All systems reviewed & are unremarkable except as noted in HPI & below Physical Exam Constitutional: WD/WN, vitals as above well groomed, cooperative and comfortable Eyes: PERRL, conjunctivae normal, anicteric sclerae ENMT: external ear and nose normal, oropharynx normal Respiratory: normal respiratory effort, lungs clear to auscultation Cardiovascular: RRR, no murmur, no edema Gastrointestinal (Abdomen): normal bowel sounds, soft, nontender, no hepatosplenomegaly Skin: no rashes, warm and dry no jaundice Neurologic: Motor/Sensory: no asterixis Psychiatric: A+Ox3, euthymic affect Lymphatic: + lymphedema (RLE) Results & Data ([facility]) Vital Signs (Past 12 Hours) Vital Signs Temp Pulse Pulse Resp BP BP Pulse Ox 02/15/20 08:00 60 02/15/20 07:34 37.4 C 02/15/20 07:15 61 18 123/71 96 02/15/20 06:50 35.9 C L 02/15/20 06:20 35.2 C L 02/15/20 05:53 35.2 C L 02/15/20 05:01 61 18 158/82 H 99 02/15/20 04:30 35 C L
[2020-02-15] MEDS ORDERED: IOVERSOL 100ml IV ONE (12:37)
--- NOTE | 2020-02-15 12:54 | CT Scan Report ---
CT pancreas 3-phase wo/w con HISTORY: elevated alkaline phosphatase. TECHNIQUE: Multiaxial CT images of the abdomen were performed both before and after the intravenous d emonstration of contrast to evaluate the pancreas. COMPARISON STUDY: Abdomen and pelvis CT 02/11/2020. FINDINGS: There are few punctate calcifications at the pancreatic head, unchanged. No pancreatic mass es identified. The main pancreatic duct is normal and course and caliber. No evidence for acute pancr eatitis. There is a prominent common hepatic duct which is within the range normal limits for age roselia suring 8 mm in diameter. This remains unchanged. Mild periportal edema persists. Small amount of aroldo cholecystic fluid and mild gallbladder wall thickening again noted. The gallbladder remains mildly di stended. No hepatic or splenic masses. Mild thickening of the adrenal glands is likely age-related. T he main portal vein is patent. Normal caliber abdominal aorta. Multiple bilateral renal hypodense les ions are again noted. These likely represent cysts. No hydronephrosis. The visualized loops of bowel show no wall thickening or obstruction. Moderate to large amount well-formed stool seen within the co alva. Moderate body wall edema and a trace left pleural effusion. The heart is enlarged. A pacemaker w shaniqua is noted. Mild emphysema. Linear density at the left lung base favor subsegmental atelectasis. No pneumoperitoneum. No pneumatosis. Endplate destructive changes at L4-5 remain unchanged. This favors a chronic discitis/osteomyelitis. IMPRESSION: 1. A few punctate calcifications at the pancreatic head consistent with chronic pancreatitis. This re daphne unchanged. No evidence for acute pancreatitis or a pancreatic mass. 2. No change in the periportal edema, gallbladder wall thickening, gallbladder distention, and a smal l amount of pericholecystic fluid. The gallbladder abnormality could be due to the patient's diffuse edematous state. A chronic cholecystitis could also have a similar appearance in the appropriate clin ical setting. Consider follow-up nuclear medicine HIDA scan for further evaluation. 3. Trace left pleural effusion. 4. The common hepatic duct remains at the upper limits of normal for age measuring 8 mm in diameter. 5. Additional findings as described above. ACT 112: Negative or not required by law. Electronically signed by: Trenton Rosas M.D. 02/15/2020 12:53 PM
[2020-02-15] MEDS: DIGOXIN 0.25 MG TAB PO SCH (17:00)
[2020-02-15] MEDS: DOCUSATE SODIUM 100 MG CAP PO SCH (20:00)
[2020-02-15] MEDS: carvediloL 6.25 MG TAB PO SCH (20:00)
[2020-02-16] MEDS ORDERED: ACETAMINOPHEN 325 MG TAB PO PRN (07:14)
[2020-02-16] MEDS: CEROVITE ADV FORMULA TAB PO SCH (08:52)
[2020-02-16] MEDS: MAGNESIUM OXIDE 400 MG TAB PO SCH (08:52)
[2020-02-16] MEDS: APIXABAN 2.5 MG TAB PO SCH ×2 (08:52→20:27)
[2020-02-16] MEDS: ASPIRIN 81 MG ECTAB PO SCH (08:52)
[2020-02-16] MEDS: INSULIN ASPART 100 UNITS/ML 3 ML PEN SC SCH ×4 (08:53→20:27)
[2020-02-16] MEDS: AVODART~ORDER AWAITING ACTION SCH ×2 (08:54→17:31)
[2020-02-16] MEDS ORDERED: cefTRIAXone SODIUM 2,000 MG in DEXTROSE 5% 50 ML IV SCH (09:00)
[2020-02-16] MEDS: cefTRIAXone SODIUM 2,000 MG in DEXTROSE 5% 50 ML IV SCH (09:04)
--- NOTE | 2020-02-16 12:28 | Hospitalist Progress Note ---
Date of Service February 16, 2020 Assessment & Plan (1) Fever: with acute metabolic encephalopathy on presentation and leukocytosis and bacteremia -multiple differentials have been considered and admitting physician Dr. Parada started patient on broad spectrum antibiotics of Zosyn and Vancomycin consulted multiple specialties to identify possible sources of the bacteremia for Possible discitis of lumbar region: -orthopedic evaluation on 02/12/2020: "At this point the patient is having minimal back pain and no radicular complaints. There is evidence of improvement in terms of the endplate deformation on the new CT scan of the abdomen pelvis." -has both elevated ESR and CRP Elevated alkaline phosphatase ruled out acute cholecystitis -gastroenterology evaluation 02/12/2020: "CT abd and US abd w/ mild gb thickening, sludge but no stones, common hepatic duct dilated but no evidence of CBD stone or obstruction. His ALKP is significant elevated. GGT pending. Concerned his ALKP elevation could be non-hepatic, no definite biliary cause of serologic abnormality." -general surgery 02/12/2020 " there is no concern for acute cholecystitis based on imaging." follow up note on 02/13/2020 "No evidence of gallbladder etiology and no plans for surgical intervention." -GGT lab elevated as 620 elevated -as of 02/14/2020 labs alkaline phosphatase stable around 550 and normal AST and normal ALT, refer to last gastroenterology note on outpatient assessments (2) Bacteremia: -was empirically on Vancomycin and Zosyn in the beginning of this hospital stay -The bacteremia appears to be strep species in the admission blood culture and in the urine. Vancomycin stopped on 02/13/2020 and Zosyn to be continued -as of 02/14/2020 WBC normalized to 8,600. continued Zosyn -as of 02/15/2020 AM the WBC remains normalized, however in the crankshaft straightener hours prior to the arrival of daytime hospitalist shift, the nurses had difficulty finding a normal body temperature and ethylbenzene oxidizer ordered ISIDRO hugger to raise measurements of body temperature - Patient denied any symptoms - no chills, no tremors, no pain, no problems with breathing. all other vital signs such as heart rate and respiratory rate and blood pressures normal. TSH normal. continued IV Zosyn for now. -02/16/2020: not on Isidro hugger, no other problems with body temperature. switch from IV Zosyn to IV ceftriaxone daily for now. Therapy evaluations suggest that patient does need acute inpatient rehab. discussed with nurse and case resolution specialist that patient to be taught ledesma care. Patient also has private home health aides and case resolution specialist will notify of ledesma needs (3) Hydronephrosis: Benign Prostate Hypertrophy, chronic bladder outlet obstruction, bilateral hydronephrosis, urinary retention -02/12/2020 urology assessment that hydronephrosis on admission imaging was from urinary retention (02/12/2020 Patient voided 200 cc then when urology service placed a Ledesam there was additional 1500 cc drained). -Urology service comments that patient will probably need a TURP at some point -PSA 0.136 which is not elevated above reference range of normal -renal ultrasound ordered by urology on 02/14/2020 appears to show resolution of hydronephrosis. urology note also commented "Will need outpatient outlet procedure for his retention" so this seems to suggest that patient will likely need to remain with ledesma which was started on this admission when medically ready for discharge (4) PAF (paroxysmal atrial fibrillation): -rate controlled with digoxin -he is taking Coreg only in the nighttime because of recent history of hypotension. 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 -initially was hyperglycemic on admission likely due to initial illness -no further long acting Lantus for no to avoid hypoglycemia -on insulin sliding scale while in the hospital Chronic lymphedema of the right lower extremity -chronic right lower extremity swelling, present on admission -patient reports his right leg is swollen for last 30 years. Deep venous thrombosis prophylaxis, on Eliquis. Level 1 full code only if there is a chance of recovery as per discussion with the patient by admitting physician Admission and Anticipated Discharge Date Admission Date: February 12, 2020 Subjective no acute events. patient with normal measured body temperature. not on Isidro Hugger. Patient worked with physical therapy. Discussed with patient about ledesma care and transitioning from IV Zosyn to IV ceftriaxone for now. Patient does not have acute pain. no respiratory symptoms. no abdominal pain. no vomiting. no dizziness. no headache. Review of Systems Review of Systems: All systems reviewed & are unremarkable except as noted in Subjective Physical Exam Constitutional: comfortable Eyes: PERRL, conjunctivae normal, anicteric sclerae EOM intact bilaterally ENMT: external ear and nose normal, oropharynx normal Neck: normal visual inspection Respiratory: normal respiratory effort, lungs clear to auscultation Cardiovascular: Rate/Rhythm: + bradycardic Gastrointestinal (Abdomen): normal bowel sounds, soft, nontender, no hepatosplenomegaly Musculoskeletal: Head/Neck/Chest: normocephalic and head atraumatic Extremities: + lower leg abnormality (chronic right lower extremity swelling, present on admission) Neurologic: PERRL, EOMI, accommodation nl, no face palsy, no dysarthria Psychiatric: A+Ox3, euthymic affect Genitourinary: + penis abnormality (ledesma) Results & Data Results & [facility] ([facility]) Vital Signs (Past 12 Hours) Vital Signs Temp Pulse Pulse Resp BP Pulse Ox 02/16/20 11:36 37 C 60 20 163/108 H 97 02/16/20 07:16 57 L 02/16/20 07:00 36.6 C 68 18 149/73 H 98 02/16/20 04:53 36.3 C L 61 20 178/83 H 99
[2020-02-16] MEDS: DIGOXIN 0.25 MG TAB PO SCH (17:30)
[2020-02-16] MEDS: DOCUSATE SODIUM 100 MG CAP PO SCH (20:27)
[2020-02-16] MEDS: carvediloL 6.25 MG TAB PO SCH (20:27)
[2020-02-16] MEDS: POLYETHYLENE (MIRALAX) 17 GM PACK PO PRN (20:37)
[2020-02-17] MEDS: AVODART~ORDER AWAITING ACTION SCH ×4 (00:23→23:54)
[2020-02-17] MEDS: INSULIN ASPART 100 UNITS/ML 3 ML PEN SC SCH ×5 (00:27→20:58)
[2020-02-17] MEDS: APIXABAN 2.5 MG TAB PO SCH ×2 (09:09→20:33)
[2020-02-17] MEDS: MAGNESIUM OXIDE 400 MG TAB PO SCH (09:09)
[2020-02-17] MEDS: CEROVITE ADV FORMULA TAB PO SCH (09:09)
[2020-02-17] MEDS: ASPIRIN 81 MG ECTAB PO SCH (09:09)
[2020-02-17] MEDS: cefTRIAXone SODIUM 2,000 MG in DEXTROSE 5% 50 ML IV SCH (09:21)
--- NOTE | 2020-02-17 14:12 | Electrocardiogram Report ---
Test Reason : Blood Pressure : / mmHG Vent. Rate : 063 BPM Atrial Rate : 063 BPM P-R Int : 000 ms QRS Dur : 200 ms QT Int : 450 ms P-R-T Axes : 000 -89 094 degrees QTc Int : 460 ms Ventricular-paced rhythm Abnormal ECG When compared with ECG of 11-FEB-2020 20:24, Electronic ventricular pacemaker has replaced Sinus rhythm Confirmed by Joe Farmer [id number] on 02/17/2020 2:12:27 PM Referred By: REFERRED SELF Confirmed By:Joe Farmer
--- NOTE | 2020-02-17 16:11 | Hospitalist Progress Note ---
Date of Service February 17, 2020 Assessment & Plan (1) Bacteremia: 79-year-old male with history of paroxysmal atrial fibrillation on Eliquis, diabetes, hypertension, BPH, chronic right lower extremity edema, presenting with fever and confusion (1) Fever: with acute metabolic encephalopathy on presentation and leukocytosis and bacteremia Secondary to group B beta Streptococcus bacteremia Per Dr. Constantin Lemus's notes: -multiple differentials have been considered and admitting physician Dr. Parada started patient on broad spectrum antibiotics of Zosyn and Vancomycin consulted multiple specialties to identify possible sources of the bacteremia for Possible discitis of lumbar region: -orthopedic evaluation on 02/12/2020: "At this point the patient is having minimal back pain and no radicular complaints. There is evidence of improvement in terms of the endplate deformation on the new CT scan of the abdomen pelvis." -has both elevated ESR and CRP Elevated alkaline phosphatase ruled out acute cholecystitis -gastroenterology evaluation 02/12/2020: "CT abd and US abd w/ mild gb thickening, sludge but no stones, common hepatic duct dilated but no evidence of CBD stone or obstruction. His ALKP is significant elevated. GGT pending. Concerned his ALKP elevation could be non-hepatic, no definite biliary cause of serologic abnormality." -general surgery 02/12/2020 " there is no concern for acute cholecystitis based on imaging." follow up note on 02/13/2020 "No evidence of gallbladder etiology and no plans for surgical intervention." -GGT lab elevated as 620 elevated -as of 02/14/2020 labs alkaline phosphatase stable around 550 and normal AST and normal ALT, refer to last gastroenterology note on outpatient assessments (2) Bacteremia, group B beta Streptococcus, rule out endocarditis Per Dr. Constantin Lemus's notes: -was empirically on Vancomycin and Zosyn in the beginning of this hospital stay -The bacteremia appears to be strep species in the admission blood culture and in the urine. Vancomycin stopped on 02/13/2020 and Zosyn to be continued -as of 02/14/2020 WBC normalized to 8,600. continued Zosyn -as of 02/15/2020 AM the WBC remains normalized, however in the drop crew laborer hours prior to the arrival of daytime hospitalist shift, the nurses had difficulty finding a normal body temperature and refrigerating oiler ordered ISIDRO hugger to raise measurements of body temperature - Patient denied any symptoms - no chills, no tremors, no pain, no problems with breathing. all other vital signs such as heart rate and respiratory rate and blood pressures normal. TSH normal. continued IV Zosyn for now. -02/16/2020: not on Isidro hugger, no other problems with body temperature. switch from IV Zosyn to IV ceftriaxone daily for now. 02/17/2020: ID consulted due to concerns of possible endocarditis Another possible source could be the right lower extremity edema, UTI? Awaiting formal ID consult note Per RN, TTE and possible ALONDRA recommended TTE ordered Overall clinically improving, repeat blood cultures 02/13/2020: Negative continue IV ceftriaxone for now (3) Hydronephrosis: Benign Prostate Hypertrophy, chronic bladder outlet obstruction, bilateral hydronephrosis, urinary retention -02/12/2020 urology assessment that hydronephrosis on admission imaging was from urinary retention (02/12/2020 Patient voided 200 cc then when urology service placed a Hernández there was additional 1500 cc drained). -Urology service comments that patient will probably need a TURP at some point -PSA 0.136 which is not elevated above reference range of normal -renal ultrasound ordered by urology on 02/14/2020 appears to show resolution of hydronephrosis. urology note also commented "Will need outpatient outlet procedure for his retention" --> Continue Hernández catheter for now (4) PAF (paroxysmal atrial fibrillation): -rate controlled with digoxin -he is taking Coreg only in the nighttime because of recent history of h ypotension. -patient also says his Eliquis was changed to once daily but will give twice daily while he is here -he follows with Cardiology in [place] -has pacemaker History of chronic systolic CHF with EF of 35% as per the patient -He is not taking Lasix anymore at home as per patient -Euvolemic Hypomagnesemia -serum magnesium 1.7 on 02/13/2020, give IV and oral magnesium -serum magnesium is 2 on 02/14/2020 and at goal Hypertension -Continue his home carvedilol Diabetes mellitus type 2 without rn long term care current use of insulin -Hold his home oral medications. -initially was hyperglycemic on admission likely due to initial illness -no further long acting Lantus for no to avoid hypoglycemia -on insulin sliding scale while in the hospital -Pharmacy glycemic consult placed NovoLog sliding scale and Lantus adjusted today Chronic lymphedema of the right lower extremity -chronic right lower extremity swelling, present on admission -patient reports his right leg is swollen for last 30 years. Deep venous thrombosis prophylaxis, on Eliquis. Level 1 full code only if there is a chance of recovery as per discussion with the patient by admitting physician Disposition PT OT recommends discharge to home when medically stable Work-up for bacteremia still in progress Admission and Anticipated Discharge Date Admission Date: February 12, 2020 Subjective Follow-up for beta Streptococcus bacteremia Seen sitting up in bed, comfortable, in good spirits Oriented x3, answers questions appropriately States he feels much better overall Denies fevers or chills, weakness, chest pain, shortness of breath, cough, abdominal pain, Leg pain No other symptoms Review of Systems Review of Systems: All systems reviewed & are unremarkable except as noted in HPI & below Physical Exam Physical Exam: General- oriented x 3, not in distress, speaks in sentences with no effort or accessory muscle use Head- atraumatic Eyes- PERRL, EOMI, anicteric ENT- oropharynx clear Neck- supple, no JVD, no adenopathy, no thyromegaly; carotids +2/2, no bruits appreciated Lungs- clear to auscultation bilaterally, no rales/wheezes Heart- normal rate, irregularly irregular rhythm; no murmur, no gallop, no rub appreciated Abdomen- normal bowel sounds, nondistended, soft, nontender, no masses or hepatosplenomegaly Extremities-right lower extremity: Positive grade 2 edema, dryness, no erythema/warmth/tenderness, no open wounds noted Left lower extremity: Essentially normal Neuro- alert, oriented x 3; CN 2-12 grossly intact; motor 5/5 bilaterally;sensation 100% on all extremities; no other gross focal neurologic deficits Skin- warm & dry Results & Data Results & Data ([facility]) Vital Signs (Past 12 Hours) Vital Signs Temp Pulse Pulse Resp BP BP Pulse Ox 02/17/20 15:33 36.6 C 66 16 152/75 H 96 02/17/20 11:39 36.4 C L 60 20 124/77 98 02/17/20 07:38 36.7 C 63 16 149/78 H 97 02/17/20 07:01 61 Laboratory Results Laboratory Results - last 24 hr 02/12/20 02/16/20 02/16/20 06:14 16:31 20:25 POC Glucose 184 H 339 H* Alkaline Phosphatase 598 H Alk Phos Iso-Intestine 0 L Alk Phos Iso-Bone 20 L Alk Phos Iso-Liver 59 Alk Phos Iso-Macro Hepat 21 H Alk Phos Iso-Placenta 0 ALP Isoenzymes Interp DNR 02/16/20 02/17/20 02/17/20 23:58 07:25 12:14 POC Glucose 212 H 126 H 221 H Alkaline Phosphatase Alk Phos Iso-Intestine Alk Phos Iso-Bone Alk Phos Iso-Liver Alk Phos Iso-Macro Hepat Alk Phos Iso-Placenta ALP Isoenzymes Interp
[2020-02-17] MEDS: DIGOXIN 0.25 MG TAB PO SCH (17:11)
[2020-02-17] MEDS: DOCUSATE SODIUM 100 MG CAP PO SCH (20:33)
[2020-02-17] MEDS: AMMONIUM LACTATE 12% LOTION 225 GM BTL EXT SCH (20:34)
[2020-02-17] MEDS: carvediloL 6.25 MG TAB PO SCH (20:34)
[2020-02-17] MEDS: POLYETHYLENE (MIRALAX) 17 GM PACK PO PRN (20:41)
[2020-02-18] MEDS: INSULIN ASPART 100 UNITS/ML 3 ML PEN SC SCH ×4 (00:06→17:04)
[2020-02-18] MEDS ORDERED: INSULIN GLARGINE SOLOSTAR 100 UNITS/ML 3 ML PEN SC SCH ×2 (09:00)
[2020-02-18] MEDS: AVODART~ORDER AWAITING ACTION SCH ×2 (09:14→15:28)
[2020-02-18] MEDS: APIXABAN 2.5 MG TAB PO SCH (09:15)
[2020-02-18] MEDS: ASPIRIN 81 MG ECTAB PO SCH (09:15)
[2020-02-18] MEDS: MAGNESIUM OXIDE 400 MG TAB PO SCH (09:15)
[2020-02-18] MEDS: CEROVITE ADV FORMULA TAB PO SCH (09:16)
[2020-02-18] MEDS: AMMONIUM LACTATE 12% LOTION 225 GM BTL EXT SCH (09:19)
[2020-02-18] MEDS: cefTRIAXone SODIUM 2,000 MG in DEXTROSE 5% 50 ML IV SCH (09:21)
--- NOTE | 2020-02-18 13:28 | Hospitalist Progress Note ---
Date of Service February 18, 2020 Assessment & Plan (1) Bacteremia: 79-year-old male with history of paroxysmal atrial fibrillation on Eliquis, diabetes, hypertension, BPH, chronic right lower extremity edema, presenting with fever and confusion (1) Fever: with Acute metabolic encephalopathy on presentation and leukocytosis and bacteremia Secondary to group B beta Streptococcus bacteremia Per Dr. Constantni Lemus's notes: -multiple differentials have been considered and admitting physician Dr. Parada started patient on broad spectrum antibiotics of Zosyn and Vancomycin consulted multiple specialties to identify possible sources of the bacteremia for Possible discitis of lumbar region: -orthopedic evaluation on 02/12/2020: "At this point the patient is having minimal back pain and no radicular complaints. There is evidence of improvement in terms of the endplate deformation on the new CT scan of the abdomen pelvis." -has both elevated ESR and CRP Elevated alkaline phosphatase ruled out acute cholecystitis -gastroenterology evaluation 02/12/2020: "CT abd and US abd w/ mild gb thickening, sludge but no stones, common hepatic duct dilated but no evidence of CBD stone or obstruction. His ALKP is significant elevated. GGT pending. Concerned his ALKP elevation could be non-hepatic, no definite biliary cause of serologic abnormality." -general surgery 02/12/2020 " there is no concern for acute cholecystitis based on imaging." follow up note on 02/13/2020 "No evidence of gallbladder etiology and no plans for surgical intervention." -GGT lab elevated as 620 elevated -as of 02/14/2020 labs alkaline phosphatase stable around 550 and normal AST and normal ALT, refer to last gastroenterology note on outpatient assessments -- per GI, (+) persistent Alk Phos, and GGT elevation (620/534) outpatient EUS recommended but would need Cardiology evaluation repeat LFTs on ff up with PCP, refer to GI (2) Bacteremia, group B beta Streptococcus Per Dr. Constantin Lemus's notes: -was empirically on Vancomycin and Zosyn in the beginning of this hospital stay -The bacteremia appears to be strep species in the admission blood culture and in the urine. Vancomycin stopped on 02/13/2020 and Zosyn to be continued -as of 02/14/2020 WBC normalized to 8,600. continued Zosyn -as of 02/15/2020 AM the WBC remains normalized, however in the inspector metal can hours prior to the arrival of daytime hospitalist shift, the nurses had difficulty finding a normal body temperature and cook pickled meat ordered FEDE hugger to raise measurements of body temperature - Patient denied any symptoms - no chills, no tremors, no pain, no problems with breathing. all other vital signs such as heart rate and respiratory rate and blood pressures normal. TSH normal. continued IV Zosyn for now. -02/16/2020: not on Fede hugger, no other problems with body temperature. switch from IV Zosyn to IV ceftriaxone daily for now. 02/17/2020: ID consulted due to concerns of possible endocarditis Another possible source could be the right lower extremity edema, UTI? Awaiting formal ID consult note Per RN, TTE and possible ALONDRA recommended TTE ordered Overall clinically improving, repeat blood cultures 02/13/2020: Negative continue IV ceftriaxone for now 02/18/2020: TTE: No vegetation noted Per [employer] ID Dr. Ruben Andrew, recommend 2 weeks of IV ceftriaxone repeat BMP on ff up with PCP next week Repeat blood cultures after completion of IV ceftriaxone (3) Hydronephrosis: Benign Prostate Hypertrophy, Chronic bladder outlet obstruction, bilateral hydronephrosis, urinary retention -02/12/2020 urology assessment that hydronephrosis on admission imaging was from urinary retention (02/12/2020 Patient voided 200 cc then when urology service placed a Hernández there was additional 1500 cc drained). -Urology service comments that patient will probably need a TURP at some point -PSA 0.136 which is not elevated above reference range of normal -renal ultrasound ordered by urology on 02/14/2020 appears to show resolution of hydronephrosis. urology note also commented "Will need outpatient outlet procedure for his retention" --> Continue Hernández catheter for now Follow-up with urologist Dr. Barriga in 1 to 2 weeks (4) PAF (paroxysmal atrial fibrillation): -rate controlled with digoxin -he is taking Coreg only in the nighttime because of recent history of hypotension. -patient also says his Eliquis was changed to once daily but will give twice daily while he is here -he follows with Cardiology in [place] -has pacemaker (5) History of chronic systolic CHF with EF of 35% as per the patient - He is not taking Lasix anymore at home as per patient - Euvolemic (6) Hypomagnesemia - serum magnesium 1.7 on 02/13/2020, give IV and oral magnesium - serum magnesium is 2 on 02/14/2020 and at goal (7) Hypertension - Continue his home carvedilol (8) Diabetes mellitus type 2 without snf current use of insulin - Hold his home oral medications. - initially was hyperglycemic on admission likely due to initial illness - no further long acting Lantus for no to avoid hypoglycemia - on insulin sliding scale while in the hospital - Pharmacy glycemic consult placed NovoLog sliding scale and Lantus adjusted (9) Chronic lymphedema of the right lower extremity -chronic right lower extremity swelling, present on admission -patient reports his right leg is swollen for last 30 years. Deep venous thrombosis prophylaxis, on Eliquis. Level 1 full code only if there is a chance of recovery as per discussion with the patient by admitting physician Disposition PT OT recommends discharge to home when medically stable Work-up for bacteremia still in progress Admission and Anticipated Discharge Date Admission Date: February 12, 2020 Subjective ff up for bacteremia Seen sitting up in bedside chair, comfortable, not in distress, in very good spirits States he feels fine overall Denies fevers or chills, headache, chest pain, shortness of breath, cough, abdominal pain Denies any other symptoms States he is ready and is agreeable for discharge today Review of Systems Review of Systems: All systems reviewed & are unremarkable except as noted in Subjective Physical Exam Physical Exam: General- oriented x 3, not in distress, speaks in sentences with no effort or accessory muscle use Eyes- anicteric Neck- no JVD Lungs- clear breath sounds bilaterally, no rales/wheezes Heart- normal rate, regular rhythm; no murmurs Abdomen- normal bowel sounds, nondistended, soft, nontender Extremities- RLE: (+) grade 2 edema, no erythema/warmth/tenderness LLE: essentially normal Neuro- alert, oriented x 3; no gross focal neurologic deficits Skin- warm & dry Results & Data Results & Data ([facility]) Vital Signs (Past 12 Hours) Vital Signs Temp Pulse Pulse Resp BP Pulse Ox 02/18/20 07:43 36.7 C 60 17 155/71 H 97 02/18/20 07:20 61 02/18/20 04:19 36.5 C 62 18 153/74 H 98 Laboratory Results Laboratory Results - last 24 hr 09/02/17/20 02/18/20 16:45 20:26 00:04 POC Glucose 172 H 150 H 185 H 02/18/20 02/18/20 05:37 11:15 POC Glucose 142 H 124 H
--- NOTE | 2020-02-18 15:24 | Discharge Summary ---
Date of Service February 18, 2020 Admission HPI Per Admitting Provider CHIEF COMPLAINT: Fever and confusion. HISTORY OF PRESENT ILLNESS: This is an 79-year-old male with past medical history significant for chronic systolic CHF with EF of 35% as per the patient and is status post pacemaker, history of atrial fibrillation, hypertension, BPH, diabetes. The patient lives alone, was brought in because of confusion. The patient lives alone, but apparently has a lot of help. He gets food 3 times a day .Since August, when he was treated for UTI, he is not doing good. He has good and bad days. He has back pain and he had a steroid shot to the back and also his blood pressure was dropping and recently his family doctor adjusted blood pressure medications. His appetite is good. He is eating very good, but he lost about 30-40 pounds since last August and he ambulates with help of walker. Today, he was feeling good and he walked about half a mile without any support and he was good until 5:00 p.m. when one of the security auditor came in the evening to give supper, he was found to be confused and they called his other caregivers and they brought him to the hospital. When the EMS went to his house he seemed to be confused and he has temp of 101 degrees and he vomited twice and he was given fluids and brought here. He received vancomycin and cefepime. History of UTIs in the past.In Er he is hemodynamically stable. Currently, he is alert and oriented. His lactic acid and procalcitonin level is negative. Saturating fine on room air. His white count was 22,000. His creatinine was okay. His lactate is 1.2, procalcitonin 0.39. Urinalysis looks okay, but his CAT scan of the abdomen and pelvis showed distended gallbladder and possible discitis. US shows gallbladder sludge, 9 mm common bile duct. Chest x-ray seems to be okay. His alkaline phosphatase is high at 981, which was normal in August and AST and ALT are also slightly elevated. Admission Exam Per Admitting Provider GENERAL: The patient is of moderate build, not in acute distress. VITAL SIGNS: Temperature 37, pulse 69, respiratory rate 13, blood pressure 112/56, oxygen 97% on room air. HEENT: No pallor, no icterus. Oral mucosa moist. NECK: No JVD, no neck masses. CARDIOVASCULAR SYSTEM: S1, S2 heard. Regular rate and rhythm. No murmur, no gallop. RESPIRATORY SYSTEM: Normal AP diameter. No accessory muscle use. No wheezing, no crackles. ABDOMEN: Soft, bowel sounds present. Nontender. No distention, no guarding. No rigidity. CENTRAL NERVOUS SYSTEM: Cranial nerves II-XII grossly intact, nonfocal. MUSCULOSKELETAL: Has lumbar spine tenderness present. EXTREMITIES: Right lower extremity chronic edema seen, no erythema seen. Principal Diagnosis STREPTOCOCCUS BACTEREMIA Discharge Exam General- oriented x 3, not in distress, speaks in sentences with no effort or accessory muscle use Eyes- anicteric Neck- no JVD Lungs- clear breath sounds bilaterally, no rales/wheezes Heart- normal rate, regular rhythm; no murmurs Abdomen- normal bowel sounds, nondistended, soft, nontender Extremities- RLE: (+) grade 2 edema, no erythema/warmth/tenderness LLE: essentially normal Neuro- alert, oriented x 3; no gross focal neurologic deficits Skin- warm & dry Discharge Data Allergies Allergy/AdvReac Type Severity Reaction Status Date / Time pseudoephedrine AdvReac uti Verified 02/11/20 23:14 [From [facility]] Consultations 02/12/20 00:45 ED Decision to Admit Stat 02/12/20 02:08 Consult Case Management - Discharge Planning Routine 02/12/20 08:00 Consult Gastroenterology Routine Consult General Surgery Routine Consult Orthopedic Surgery Routine Consult Urology Routine 02/17/20 09:04 Consult Infectious Diseases Routine Ordered Studies 02/11/20 22:09 CT abd pelvis IV con only Urgent COMPARISON STUDY: None. TECHNIQUE: The patient was scanned in a dynamic helical fashion during intravenous administration of 93 cc of Optiray 320 A dose lowering technique was utilized adhering to the principles of ALARA. CT DOSE: 281.53 mGy.cm FINDINGS: Lower chest: Underlying emphysema is suspected. There is minimal basilar atelectasis. Liver: There is minimal periportal edema, possibly secondary to hydration. No focal hepatic masses are visualized. Gallbladder: Mildly distended. Mild pericholecystic fluid. No gallstones identified. Spleen: Normal in size and attenuation. Pancreas: No masses are visualized. There are several peripancreatic calcifi cations. Adrenal glands: There is mild adrenal gland thickening. Kidneys: There are multiple bilateral renal cysts measuring up to 8 cm in diameter. There is bilateral hydronephrosis and hydroureter. No ureteral or bladder calculi are visualized. Bowel: There are no transition zones to indicate bowel obstruction. There is no evidence of acute diverticulitis. The appendix appears normal. There is borderline small bowel wall thickening. Peritoneum: There is no intraperitoneal free air or abdominal ascites. Vasculature: The abdominal aorta is normal in course and caliber. Adenopathy: None. Pelvic viscera: The bladder is distended. The prostate is enlarged. There is a soft tissue density at the bladder base representing either a bladder lesion or nodular prostate. Skeletal structures: Degenerative changes are present in the cervical spine with erosive changes involving the L5-S1 disc. IMPRESSION: 1. Distended urinary bladder with secondary bilateral hydronephrosis 2. Gallbladder distention. 3. Bilateral renal cysts 4. Mild periportal edema and trace pericholecystic fluid 5. Enlarged nodular prostate. 6. Soft tissue density at the bladder base representing either a bladder lesion or a nodular prostate 7. Improved endplate erosive changes at the L4-5 level, likely secondary to a prior discitis/osteomyelitis 8. No evidence of bowel obstruction. No evidence of free air 02/11/20 23:13 US gallbladder Urgent COMPARISON STUDY: CT scan dated 02/11/2020 FINDINGS: The pancreas appear normal as visualized. The gallbladder was distended containing a small amount of sludge. There is no gallbladder wall thickening. Technologist reports a negative sonographic Lugo sign. Common hepatic duct measured 9 mm. No images of the common bile duct were obtained. There is right-sided hydronephrosis. Multiple right renal cysts are visualized. The liver appears slightly echogenic without evidence of focal mass.. IMPRESSION: 1. Distended gallbladder containing a small of sludge. No gallstones identified. No wall thickening. Negative sonographic Lugo sign. 2. 9 mm common hepatic duct 3. Right-sided hydronephrosis and multiple right renal cysts. 4. Slight increase in hepatic echogenicity without evidence of focal mass 02/12/20 09:00 CT humerus LT w con Routine COMPARISON: Chest radiograph 02/11/2020 and 09/09/2019, CT abdomen and pelvis 02/11/2020 TECHNIQUE: Multiple axial CT images of the left humerus were obtained without the use of IV contrast. A dose lowering technique was used consistent with the principals of ALA. FINDINGS: Subpleural nodules of the left upper lobe and likely benign. Unremarkable soft tissues. Gynecomastia. Left subclavian pacer with streak artifact. Left hydronephrosis with left renal cysts. 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 Marginal spurring of the elbow. Moderate enthesophyte of the olecranon process. There are a few ill- defined corticated ossifications noted along the superior glenoid measuring up to 3 mm which may reflect fragmented osteophytes. There is decreased coracohumeral interval of 3 mm. Mild marginal spurring with subcortical cystic change of the acromium. No acute fracture or dislocation. The imaged ribs appear intact. There is a thin-walled lucent cystic bone lesion with thin zone of margination located within the central medullary cavity of the proximal humeral metaphysis and surgical neck which measures 2.1 x 2.7 x 3.4 cm (image 102 series 2 and image 26 series 200). No endosteal scalloping, cortical breakthrough or adjacent periostitis. There is no associated cartilaginous or osseous matrix. Additionally, there is a focal intramedullary cystic process with thin linear internal septations involving the proximal to mid diaphyseal humerus measuring 1.5 x 2.2 x 3.4 cm. This lesion also demonstrates a thin zone of margination without cortical breakthrough or suspicious features. IMPRESSION: 1. Moderate glenohumeral and severe AC joint osteoarthritis without acute fracture or dislocation. 2. Cystic benign-appearing bone lesions of the proximal and mid humerus as detailed above demonstrate low suspicion features. No pathologic fracture. 3. Left hydronephrosis redemonstrated. 4. Decreased coracohumeral interval is suggestive of chronic rotator cuff tears. 02/14/20 08:00 US renal/blad retro comp Routine COMPARISON: Abdomen and pelvis CT 02/11/2020. FINDINGS: Right kidney: 11.5 cm multiple cysts with the largest in the upper pole measuring 3.2 cm. No hydronephrosis. Normal corticomedullary differentiation and cortical thickness. Left kidney: 13.7 cm. Multiple cysts with the largest in the upper pole measuring 8.1 cm. No hydronephrosis. Normal corticomedullary differentiation and cortical thickness. Bladder: Decompressed by the Hernández catheter. Marked bladder wall thickening. Small amount of gas within the bladder lumen likely due to the catheterization. IMPRESSION: 1. No hydronephrosis. 2. Decompressed bladder secondary to the Hernández catheter. Marked bladder wall thickening. This could be due to chronic outlet obstruction or a cystitis. Recommend correlation with urinalysis. 02/15/20 11:52 CT pancreas 3-phase wo/w con Routine COMPARISON STUDY: Abdomen and pelvis CT 02/11/2020. FINDINGS: There are few punctate calcifications at the pancreatic head, unchanged. No pancreatic masses identified. The main pancreatic duct is normal and course and caliber. No evidence for acute pancreatitis. There is a prominent common hepatic duct which is within the range normal limits for age measuring 8 mm in diameter. This remains unchanged. Mild periportal edema persists. Small amount of pericholecystic fluid and mild gallbladder wall thickening again not ed. The gallbladder remains mildly distended. No hepatic or splenic masses. Mild thickening of the adrenal glands is likely age-related. The main portal vein is patent. Normal caliber abdominal aorta. Multiple bilateral renal hypodense lesions are again noted. These likely represent cysts. No hydronephrosis. The visualized loops of bowel show no wall thickening or obstruction. Moderate to large amount well-formed stool seen within the colon. Moderate body wall edema and a trace left pleural effusion. The heart is enlarged. A pacemaker wire is noted. Mild emphysema. Linear density at the left lung base favor subsegmental atelectasis. No pneumoperitoneum. No pneumatosis. Endplate destructive changes at L4-5 remain unchanged. This favors a chronic discitis/osteomyelitis. IMPRESSION: 1. A few punctate calcifications at the pancreatic head consistent with chronic pancreatitis. This remains unchanged. No evidence for acute pancreatitis or a pancreatic mass. 2. No change in the periportal edema, gallbladder wall thickening, gallbladder distention, and a small amount of pericholecystic fluid. The gallbladder abnormality could be due to the patient's diffuse edematous state. A chronic ch olecystitis could also have a similar appearance in the appropriate clinical setting. Consider follow-up nuclear medicine HIDA scan for further evaluation. 3. Trace left pleural effusion. 4. The common hepatic duct remains at the upper limits of normal for age measuring 8 mm in diameter. 5. Additional findings as described above. Hospital Course (1) Bacteremia: 79-year-old male with history of paroxysmal atrial fibrillation on Eliquis, diabetes, hypertension, BPH, chronic right lower extremity edema, presenting with fever and confusion (1) Fever with Acute Metabolic Encephalopathy on presentation Secondary to group B beta Streptococcus bacteremia -was empirically on Vancomycin and Zosyn in the beginning of this hospital stay then transitioned to IV Zosyn -Blood cultures positive for group B beta strep in 2 bottles -Exact etiology of Streptococcus bacteremia unclear From chronic leg edema of the right lower extremity? Urinary source in the setting of BPH and chronic bladder outlet obstruction? Acute cholecystitis unlikely per general surgery and gastroenterology service Discitis unlikely per orthopedic surgery 02/17/2020: Harika SCHWAB consulted due to concerns of possible endocarditis Telemedicine conducted by Dr. Ruben Andrew Recommended TTE, and if leads are clearly visualized and negative imaging, no need to do ALONDRA, recommend to weeks of IV ceftriaxone from first negative blood culture TTE performed by Dr. Stanislaw Garibay, discussed with Dr. Garibay, leads were clearly visualized, no vegetation noted EF 30 to 35%, moderate global hypokinesis of left ventricle Apical wall motion abnormality may reflect pacemaker activation Moderate concentric LVH Grade 1 Diastolic function There is a pacemaker lead in the right ventricle right atrium No visualized vegetation with limitations of type of study Overall clinically improved, repeat blood cultures 02/13/2020: Negative Per Harika Andrew, recommend 2 weeks of IV ceftriaxone repeat BMP on ff up with PCP next week, weekly while on IV antibiotics Repeat blood cultures after completion of IV ceftriaxone (2) Elevated alkaline phosphatase ruled out acute cholecystitis -gastroenterology evaluation 02/12/2020: "CT abd and US abd w/ mild gb thickening, sludge but no stones, common hepatic duct dilated but no evidence of CBD stone or obstruction. His ALKP is significant elevated. GGT pending. Concerned his ALKP elevation could be non-hepatic, no definite biliary cause of serologic abnormality." -general surgery 02/12/2020 " there is no concern for acute cholecystitis based on imaging." follow up note on 02/13/2020 "No evidence of gallbladder etiology and no plans for surgical intervention." -GGT lab elevated as 620 elevated -as of 02/14/2020 labs alkaline phosphatase stable around 550 and normal AST and normal ALT -- per GI, (+) persistent Alk Phos, and GGT elevation (620/534) outpatient EUS recommended but would need Cardiology evaluation repeat LFTs on ff up with PCP, refer to GI (3) Hydronephrosis: Benign Prostate Hypertrophy, Chronic bladder outlet obstruction, bilateral hydronephrosis, urinary retention -02/12/2020 urology assessment that hydronephrosis on admission imaging was from urinary retention -Urology service comments that patient will probably need a TURP at some point -PSA 0.136 which is not elevated above reference range of normal -renal ultrasound ordered by urology on 02/14/2020 appears to show resolution of hydronephrosis. urology note also commented "Will need outpatient outlet proced ure for his retention" --> Continue Hernández catheter for now Follow-up with urologist Dr. Barriga in 1 to 2 weeks (4) PAF (paroxysmal atrial fibrillation): -rate controlled with digoxin -he is taking Coreg only in the nighttime because of recent history of hypotension. -patient also says his Eliquis was changed to once daily but will give twice daily Discontinue aspirin 81 mg daily -he follows with Cardiology in [place] -has pacemaker (5) History of chronic systolic CHF with EF of 35% as per the patient - He is not taking Lasix anymore at home as per patient - Euvolemic (6) Hypomagnesemia - replaced (7) Hypertension - Continue his home carvedilol (8) Diabetes mellitus type 2 without buttermaker continuous churn current use of insulin -Continue usual regimen (9) Chronic lymphedema of the right lower extremity -chronic right lower extremity swelling, present on admission Deep venous thrombosis prophylaxis, on Eliquis. Level 1 full code only if there is a chance of recovery as per discussion with the patient by admitting physician Disposition PT OT recommends discharge to home with home health services Up with PCP next week, urologist in 1 to 2 weeks Refer to gastroenterology service Total Time Total Time Spent Total Time Spent (In Minutes): 50 minutes Discharge Plan Discharge Items Patient Disposition: Home - Home Health Services Reason For Visit: FEVER, AMS Discharge Diagnosis: Streptococcus bacteremia with acute metabolic encephalopathy on presentation Benign Prostate Hypertrophy, Chronic bladder outlet obstruction, Bilateral hydronephrosis, Urinary retention Activity: Resume your previous activity Activity Comment: Gradually as tolerated, fall precautions please, always ambulate carefully Lifting: Wait until after follow-up appointment Exercise/Sports: Wait until after follow-up appointment Driving/Machine Use: No driving Non-emergency contact: Primary Care Provider Call non-emergency contact if: you have any medication questions, your symptoms worsen, your pain is not controlled, your pain is worsening, your pain is unusual for you, your pain is concerning for you and you have a fever Follow-up/Referrals: Jermaine Barriga MD [Physician] - (Dr. Barriga's Urology Office will contact you for a follow up appointment.) Eleazar Gaffney [Primary Care Provider] - Diet: Carb Consistent or DM2 and Heart Healthy Addtl Attending Provider Instructions: Please refer to your new medication list and follow instructions carefully. Your new medication include: Ceftriaxone-antibiotic for bloodstream infection You will need to come to [facility] medical treatment unit to receive your antibiotics (ceftriaxone) intravenously daily For a total of 11 days. Take a probiotic daily for at least 1 month. Follow-up with your primary care physician Dr. Danielle Gaffney in 1 week. Please call her office for an appointment. Please request them to obtain your discharge summary from the hospital prior to your appointment. Continue Hernández catheter. Please follow-up with the urologist Dr. Barriga in 1 to 2 weeks. Please call his office to schedule your appointment. His contact information is outlined above. Call your primary care physician or return to the ER immediately if with worsening of symptoms, Including confusion, fever/ chills, weakness, shortness of breath, cough, abdominal pain, problems with urination or bowel movement, diarrhea, Increasing swelling, redness, pain of the right leg. Pending Studies at Discharge: Yes Studies:: Repeat blood work care of primary care physician Dr. April Gaffney Including weekly CBC and basic metabolic profile while on IV ceftriaxone; Repeat liver function test on follow-up with Dr. April Gaffney next week Stand-Alone Forms: My [facility], Smoking Cessation Medications and DC Order Prescriptions: New ceftriaxone 2 gram recon soln 2 g IV DAILY Qty: 11 RF: 0 Eucerin Original Lotion 1 applic topical BID Qty: 250 RF: 0 Continued dutasteride 0.5 mg capsule 0.5 mg PO DAILY Qty: 90 RF: 3 acetaminophen [Tylenol Extra Strength] 500 mg Tablet 1,000 mg PO AMHS RF: 0 docusate sodium 100 mg Capsule 100 mg PO HS RF: 0 Centrum Silver 0.4-300-250 mg-mcg-mcg Tablet 1 tab PO DAILY RF: 0 Eliquis 2.5 mg tablet 2.5 mg PO Q12 RF: 0 carvedilol [Coreg] 6.25 mg tablet 6.25 mg PO HS RF: 0 simvastatin [Zocor] 10 mg tablet 10 mg PO HS RF: 0 digoxin 250 mcg (0.25 mg) tablet 250 mcg PO DAILY RF: 0 Tradjenta 5 mg tablet 5 mg PO DAILY RF: 0 Jardiance 10 mg tablet 10 mg PO DAILY RF: 0 Discontinued aspirin [Aspir-81] 81 mg Tablet,Delayed Release (Dr/Ec) 81 mg PO DAILY RF: 0 Discharge Orders: Discharge Order (Routine); Ordered 02/18/20 Ordered By: Joshua Palm/Other Patient Handouts: Managing Type 2 Diabetes Admission Data Admit Date/Time: 02/12/20 01:01 Attending Provider: Joshua Schumacher Admit Provider: Michel Parada Primary Care Provider: Eleazar Gaffney Other Providers: Michel Parada ; Sandra Srinivasan ; Lucina Mack ; Katia Barillas ; Noelle Burns ; David Ramos ; Patria Gomes ; Danish Huston ; Nusrat Barber ; Freddy Kennedy ; Angelo Villalobos ; Fabi Graves ; Kamilla Vidal ; Sarah Prince ; Shanique Bautista ; Jose Nascimento ; Tal Harden ; Isha Webster ; Martha Gomes ; Polo Fragoso ; Derek Dangelo ; Wandy Mascorro ; Nicholas Bond ; Lucina Patel ; Fareed Tenorio Jr ; Jimena La ; Shanique Rodriguez ; Joey Collins ; Jermaine Barriga ; Constantin Lemus ; Zachery Tsang ; Jay Whiteside ; Colt Kwok I. ; Loco Andrew II ; Chaparrita Fung ; Tal Marks ; Cezar Ortiz [facility] Other Interventions: Discharge Summary Assessment (RN) Last Done: 02/18/20 14:21
[2020-02-18] MEDS: DIGOXIN 0.25 MG TAB PO SCH (16:02)
== END 2020-02-18 19:14 | disposition home health service (06) | DRG 871 ==
LOC: ED 20:16 → 2N 02-12 01:01 → SUATTDRO 02-12 01:01 → 2N 02-12 01:38

== ENCOUNTER 2021-01-03 06:52 | Observation (INO) ==
--- NOTE | 2020-12-29 13:01 | Anesthesiology Consultation ---
Date of Service December 29, 2020 Assessment & Plan (1) Encounter for pre-operative examination: Chart Review Chart Review: Acceptable Risk for Surgery and Patient NOT seen in Pre Admission Testing The patient was instructed by his prepress supervisor to stop his Eliquis two days prior to the procedure and to start as soon as safely possible. History Surgery Operation Date: 01/03/21 10:45 Proposed Procedures p Transurethral Resection Prostate - Jermaine Barriga MD Height/Weight Height: 6 ft Weight: 71.214 kg Allergies Allergy/AdvReac Type Severity Reaction Status Date / Time pseudoephedrine AdvReac Mild uti-30 YRS Verified 12/29/20 10:51 [From [facility]] AGO! Medications Home Medications Medication Instructions Recorded Confirmed Last Taken carvedilol 6.25 mg tablet (Coreg) 6.25 mg PO HS 09/09/19 12/29/20 02/10/20 digoxin 250 mcg (0.25 mg) tablet 250 mcg PO QAM 09/09/19 12/29/20 02/11/20 linagliptin 5 mg tablet (Tradjenta) 5 mg PO QAM 09/09/19 12/29/20 09/18/20 acetaminophen 500 mg tablet 1,000 mg PO BID 02/11/20 12/29/20 02/11/20 08:00 (Tylenol Extra Strength) apixaban 2.5 mg tablet (Eliquis) 2.5 mg PO BID 02/12/20 12/29/20 09/17/20 Lactobacillus 40-Bifidobact 1 cap PO QAM 09/07/20 12/29/20 09/18/20 3-S.thermophilus 100 billion cell capsule (Probiotic) furosemide 40 mg tablet 40 mg PO UD 09/07/20 12/29/20 09/18/20 metformin 500 mg tablet 500 mg PO BID 09/07/20 12/29/20 09/17/20 cholecalciferol (vitamin D3) 1,250 50,000 unit PO UD cap 11/30/20 12/29/20 Unknown mcg (50,000 unit) capsule Potassium Otc 99 mg PO HS 12/29/20 12/29/20 Unknown albuterol sulfate 90 mcg/actuation 2 puff INHALATION 6XD PRN 12/29/20 12/29/20 Unknown aerosol inhaler (Proventil HFA) dutasteride 0.5 mg capsule 0.5 mg PO QPM 12/29/20 12/29/20 Unknown lanolin-mineral oil lotion 1 applic TOPICAL BID PRN 12/29/20 12/29/20 Unknown (Eucerin Original) polyethylene glycol 3350 17 gram 17 g PO DAILY PRN 12/29/20 12/29/20 Unknown oral powder packet (Miralax) Past Medical History Medical History (Updated 12/29/20 @ 13:23 by Evita Galindo MD) Asthma HX -USES INHALERS DURING WINTER MONTHS PRN Atrial fibrillation dx 10 yrs ago> Eliquis > no cardioversions BPH (benign prostatic hyperplasia) CHF (congestive heart failure), NYHA class III Class II-III Coronary artery disease EF 30-35% Diabetes mellitus, type 2 NIDDM GERD (gastroesophageal reflux disease) hx-UNDER CONTROL History of Mohs micrographic surgery for skin cancer SKIN Hydronephrosis HX Hyperlipidemia Pacemaker placed 10 yrs ago> Afib > last checked approx [address] Manning, [facility] [place] > [employer]F/U [facility] Urinary incontinence Past Family History Family History Sister Liver cancer Past Surgical History Surgical History H/O colonoscopy History of prostate surgery LASER SURGERY History of tooth extraction S/P epidural steroid injection X 5 Social History Smoking Status: Never smoker Do You Dip or Chew Tobacco: No Hx Alcohol Use: No Hx Substance Use: No substance use type: does not use Testing Laboratory Results Laboratory Tests 12/28/20 12/28/20 11:15 11:15 WBC 5.36 Hgb 14.6 Hct 44.5 Plt Count 192 Sodium 139 Potassium 4.4 Chloride 106 Carbon Dioxide 29 BUN 32 H Creatinine 1.17 Glucose 158 H Electrocardiogram Date: 02/17/20 Ventricular-paced rhythm Abnormal ECG When compared with ECG of 11-FEB-2020 20:24, Electronic ventricular pacemaker has replaced Sinus rhythm Confirmed by Joe Farmer ([id number]) on 02/17/2020 2:12:27 PM Echocardiogram Date: 02/17/20 EF: 30-35% moderate concentric LVH mild global hypokinesis of left ventricle EF 30-35% Grade 1 diastolic dysfunction Cardiac Catheterization Date: 03/07/10 no obstructive CAD
[~2021-01-03 06:52] MED LIST: CIPROFLOXACIN / D5W 400 MG/200 ML BAG IV SCH; LR 15ML/HR IV SCH
--- NOTE | 2021-01-03 07:29 | History & Physical Bridge Note ---
Date of Service January 03, 2021 History & Physical Bridge Note I have examined the patient, reviewed the History & Physical and in the interval since the performance of the History & Physical I have noted the following changes of clinical significance: no changes noted
[2021-01-03] MEDS ORDERED: PROPOFOL IV EMULSION 10 MG/ML 20 ML VIAL IV ONE (07:54)
[2021-01-03] MEDS ORDERED: ONDANSETRON INJ 2 MG/ML 2 ML VIAL ONE (07:54)
[2021-01-03] MEDS ORDERED: ePHEDrine sulfate 50 MG/ML SYR ONE (07:54)
[2021-01-03] MEDS ORDERED: PHENYLEPHRINE 100MCG/ML 5ML SYR ONE (07:54)
[2021-01-03] MEDS ORDERED: LIDOCAINE 2% 2 ML VIAL/AMP(20MG/ML) INFIL ONE (07:55)
[2021-01-03] MEDS ORDERED: fentaNYL citrate 100 MCG/2 ML VIAL ONE (07:55)
[2021-01-03] MEDS ORDERED: LABETALOL HCL IV 5 MG/ML 20ML IV PRN (08:32)
[2021-01-03] MEDS ORDERED: ONDANSETRON INJ 2 MG/ML 2 ML VIAL IV PRN (08:32)
[2021-01-03] MEDS ORDERED: fentaNYL citrate 100 MCG/2 ML VIAL IV PRN (08:32)
[2021-01-03] MEDS ORDERED: ATROPINE SULFATE 0.1 MG/ML 10ML SYR IV PRN (08:32)
--- NOTE | 2021-01-03 09:20 | Operative Report ---
[facility] Post Operative Report Pre & Post Diagnosis Operation Date: 01/03/21 08:40 Pre-Op Diagnosis: Benign Prostatic Hyperplasia Post-Op Diagnosis: Benign Prostatic Hyperplasia I identified the patient and participated in the time-out.: Yes Procedure Operation Date: 01/03/21 08:40 Actual Procedures p Transuretral Resection Prostate - Jermaine Barriga MD Surgeon Jose F Barriga MD Head Of Biology none Estimated Blood Loss 0 Findings Consistent with Post-Op Diagnosis Specimens none Description of Procedure The patient was identified in the preoperative holding area, appropriate informed consents were reviewed and completed and the patient was transferred to the operative suite. Upon arrival, appropriate antibiotics and anesthesia were administered and the patient was placed in dorsal lithotomy position and prepped and draped in sterile fashion. To begin the case I passed a 24 [place]i resectoscope with 30 degree lens. Inspection revealed a healthy-appearing urethra. He has a relatively large prostate with a notable intravesical lobe. Ureteral orifices were identified in a heavily trabeculated bladder. Following my inspection I exchanged the visual heavy machinery operator for a button electrode. I resected the intravesical median lobe first followed by resection of the left and right lateral lobes. The prostatic fossa was widely patent. Hemostasis was excellent. A 22 [place]i catheter was inserted without difficulty and the case was concluded. He was reversed of anesthesia and taken to the recovery room in stable condition. There were no complications. I attest to the content of the Intraoperative Record and any orders documented therein. Any exceptions are noted below.
--- NOTE | 2021-01-03 09:46 | Anesthesiology Progress Note ---
Date of Service January 03, 2021 Anesthesia Post Procedure Vital Signs Vital Signs: Temp Pulse Pulse Resp BP BP Pulse Ox 01/03/21 09:35 61 18 126/75 98 01/03/21 09:25 72 12 118/72 99 01/03/21 09:16 36.6 C 69 16 102/58 L 99 01/03/21 07:13 36.7 C 85 20 170/95 H 100 Transfer of Care Handoff Completed per policy Notes Mental Status: alert / awake / arousable Patient Amnestic to Procedure: Yes Nausea / Vomiting: adequately controlled Pain: adequately controlled Airway Patency, RR, SpO2: stable & adequate BP & HR: stable & adequate Hydration State: stable & adequate Anesthetic Complications: no major complications apparent
[2021-01-03] MEDS ORDERED: POLYETHYLENE (MIRALAX) 17 GM PACK PO PRN (10:59)
[2021-01-03] MEDS ORDERED: LACTATED RINGER'S 1,000 ML IV SCH (10:59)
[2021-01-03] MEDS ORDERED: ACETAMINOPHEN 325 MG TAB PO PRN (10:59)
[2021-01-03] MEDS ORDERED: ALBUTEROL HFA 8 GM INHALER INH PRN (10:59)
[2021-01-03] MEDS ORDERED: EUCERIN CR 120 GM JAR EXT PRN (11:34)
[2021-01-03] MEDS ORDERED: GLUCOSE 40% GEL 15 GM TUBE PO PRN (15:15)
[2021-01-03] MEDS ORDERED: GLUCAGON FOR INJ 1 MG VIAL SQ PRN (15:15)
[2021-01-03] MEDS ORDERED: CARBOHYDRATES FOR HYPOGLYCEMIA PO PRN (15:15)
[2021-01-03] MEDS ORDERED: GLUCOSE 10 TABS/TUBE PO PRN (15:15)
[2021-01-03] MEDS ORDERED: DEXTROSE 50% 50 ML SYRINGE IV PRN (15:15)
[2021-01-03] MEDS ORDERED: PHARMACY GLYCEMIC MGMT CONSULT PRN (15:19)
[2021-01-03] MEDS ORDERED: DIGOXIN 0.25 MG TAB PO SCH (16:00)
[2021-01-03] MEDS ORDERED: metFORMIN HCL 500 MG TAB PO SCH (17:00)
[2021-01-03] MEDS: INSULIN ASPART 100 UNITS/ML 3 ML PEN SC SCH ×2 (18:02→20:27)
[2021-01-03] MEDS: ACETAMINOPHEN 500 MG TAB PO SCH (20:29)
[2021-01-03] MEDS ORDERED: POTASSIUM OTC 99 MG PO SCH (21:00)
[2021-01-03] MEDS ORDERED: NON-FORMULARY MEDICATION (Dutasteride [Avodart] 0.5 mg capsule) PO SCH (21:00)
[2021-01-03] MEDS ORDERED: carvediloL 6.25 MG TAB PO SCH (21:00)
[2021-01-04] MEDS: ACETAMINOPHEN 500 MG TAB PO SCH (08:53)
[2021-01-04] MEDS: INSULIN ASPART 100 UNITS/ML 3 ML PEN SC SCH ×2 (08:57→13:16)
[2021-01-04] MEDS ORDERED: ADVANCED PROBIOTIC 1250 MG CAPSULE PO SCH (09:00)
--- NOTE | 2021-01-04 09:15 | Urology Progress Note ---
Date of Service January 04, 2021 Assessment & Plan (1) Urinary retention due to benign prostatic hyperplasia: Plan: Postop day #1 status post TURP Doing very well Plan for discharge home today with his Hernández, will return to the office tomorrow for a voiding trial Admission and Anticipated Discharge Date Admission Date: January 03, 2021 Subjective No major issues overnight Urine has cleared appropriately Denies any significant pain or discomfort Tolerating a diet Results & Data ([facility]) Vital Signs (Past 12 Hours) Vital Signs Temp Pulse Resp BP Pulse Ox 01/04/21 07:56 36.5 C 66 16 151/81 H 96 01/04/21 03:50 36.8 C 63 16 156/79 H 99 01/03/21 22:59 36.7 C 61 16 112/66 96 PG Care Time/CCT Total # of Minutes Spent Total Time Spent with Patient: Total time spent is greater than 50% in coordination of care (as documented) at patient's floor/unit and/or counseling patient: Coding Level of Care Code 23585 Subseq Hosp Care Lvl 2 Diagnoses Urinary retention due to benign prostatic hyperplasia N40.1; R33.8
--- NOTE | 2021-01-04 09:27 | Discharge Summary ---
Date of Service January 04, 2021 Admission HPI Per Admitting Provider See H&P Admission Exam Per Admitting Provider See H&P Principal Diagnosis BPH Urinary retention due to benign prostatic hyperplasia Discharge Exam Constitutional well developed and well nourished; no acute distress and not ill appearing Respiratory normal respiratory effort and able to speak in complete sentences; no respiratory distress and no audible wheezes Gastrointestinal (Abdomen) Inspection/Auscultation: abdomen normal to inspection Psychiatric Orientation: alert, oriented x 3 and cooperative Affect: euthymic affect Genitourinary Ledesma catheter intact and patent - draining yellow, pink-tinged urine. Discharge Data Allergies Allergy/AdvReac Type Severity Reaction Status Date / Time pseudoephedrine AdvReac Mild uti-30 YRS Verified 01/03/21 07:09 [From [facility]] AGO! Procedures Performed Operation Date: 01/03/21 08:40 Actual Procedures p Transuretral Resection Prostate - Jermaine Barriga MD Hospital Course (1) Urinary retention due to benign prostatic hyperplasia: Patient admitted status post TURP 01/03/[address] Barriga. No complications post procedure. He was seen POD#1, feeling well, clinically progressing. Vital signs remained stable during hospital stay. Pain controlled, tolerating diet, ambulating without dizziness. Discharged home in stable condition POD #1, home with ledesma catheter. Patient will restart Eliquis Saturday01/06/21. Plan for voiding trial in office 01/05/21. Total Time Total Time Spent Total Time Spent (In Minutes): 10 Discharge Plan Discharge Items Patient Disposition: Home - Self-Care Reason For Visit: Benign Prostatic Hyperplasia, Urinary Discharge Diagnosis: BPH, urinary retention Condition on Discharge: Good Activity: Per Instructions section Lifting: No more than 25 pounds Bathing Comment: No tub baths/soaking. Okay to shower tomorrow. Sexual Activity: Wait until after follow-up appointment Exercise/Sports: Wait until after follow-up appointment Driving/Machine Use: Resume 3 days after discharge Non-emergency contact: Surgeon and Urologist Call non-emergency contact if: you have any medication questions, your pain is not controlled, your pain is concerning for you and your temperature is above 101 Follow-up/Referrals: Eleazar Gaffney [Primary Care Provider] - [facility],Nurse [FAKE FOR SCHEDULES] - 01/05/21 11:30 am Diet: Carb Consistent or DM2 Addtl Attending Provider Instructions: Please take all medications as prescribed and keep all follow-ups as scheduled. Please call our office at [phone] with any questions, concerns or need to reschedule appointments for any reason. We are happy to assist you. An antibiotic was sent to your pharmacy, Ciprofloxacin. You will take this twice daily for 3 days. Please hold your Eliquis until Saturday of this week. You may resume Eliquis 01/06/21. Your voiding trial will be tomorrow 01/05/21, in [place] office, at 11:30 am. Tips for your recovery at home: Dont be alarmed by brownish or reddish blood or clots in your urine. This is a result of the procedure. This may occur off and on for weeks to months after the procedure but should continue to improve. Drink plenty of fluids during the day (enough to keep your urine very light colored). This will help keep a healthy flow of urine. Do not lift >25 lbs until your followup Avoid constipation. Please use a stool softener (Colace) for the first two weeks after your procedure Be sure to finish the antibiotics as prescribed. If you go home with a catheter, please wash tubing where it enters your body twice daily with mild soap (Dove or Dial). Once your catheter is removed, expect some blood in your urine and some burning when you urinate. You should have an appointment to have this removed, if you do not please call our office to arrange. When to call [facility] at [phone]: Your urine contains heavy blood clots You are constantly leaking urine Fever of 101F or higher, chills, nausea, or vomiting Your pain is not relieved with medication Pending Studies at Discharge: Yes Studies:: Pathology Stand-Alone Forms: My [facility], Smoking Cessation Medications and DC Order Prescriptions: New ciprofloxacin HCl 500 mg tablet 500 mg PO BID 3 Days Qty: 6 RF: 0 Continued cholecalciferol (vitamin D3) 1,250 mcg (50,000 unit) capsule 50,000 unit PO UD RF: 0 acetaminophen [Tylenol Extra Strength] 500 mg Tablet 1,000 mg PO BID RF: 0 carvedilol [Coreg] 6.25 mg tablet 6.25 mg PO HS RF: 0 digoxin 250 mcg (0.25 mg) tablet 250 mcg PO QAM RF: 0 Tradjenta 5 mg tablet 5 mg PO QAM RF: 0 furosemide 40 mg Tablet 40 mg PO UD RF: 0 metformin 500 mg Tablet 500 mg PO BID RF: 0 Probiotic 100 billion cell Capsule 1 cap PO QAM RF: 0 Eucerin Original Lotion 1 applic topical BID PRN (Reason: Dry Skin) RF: 0 polyethylene glycol 3350 [Miralax] 17 gram Powder In Packet 17 g PO DAILY PRN (Reason: Constipation) RF: 0 albuterol sulfate [Proventil HFA] 90 mcg/actuation Hfa Aerosol Inhaler 2 puff INHALATION 6XD PRN (Reason: Wheezing) RF: 0 Potassium Otc 99 mg PO HS RF: 0 Eliquis 2.5 mg tablet 2.5 mg PO BID Qty: 0 RF: 0 Discontinued dutasteride [Avodart] 0.5 mg capsule 0.5 mg PO QPM RF: 0 Discharge Orders: Discharge Order (Routine); Ordered 01/04/21 Ordered By: Chrissie León Admission Data Admit Date/Time: 01/03/21 09:15 Attending Provider: Jermaine Barriga Admit Provider: Jermaine Barriga Primary Care Provider: Eleazar Gaffney Other Interventions: Discharge Summary Assessment (RN) Last Done: 01/04/21 11:12 Coding Level of Care Code D/C DAY MANAGEMENT <30 MINS Diagnoses Urinary retention due to benign prostatic hyperplasia N40.1; R33.8
[2021-01-05] MEDS ORDERED: FUROSEMIDE 40 MG TAB PO SCH (09:00)
[2021-01-14] MEDS ORDERED: ERGOCALCIFEROL 50,000 UNITS 1250 MCG CAP PO SCH (09:00)
== END 2021-01-04 15:59 | disposition home or self-care (01) ==
LOC: ASU 06:52 → 3W 06:52

== ENCOUNTER 2023-04-16 14:18 | Inpatient (IN) ==
--- NOTE | 2023-04-16 14:57 | Emergency Department Note ---
History of Present Illness General Chief complaint: Hip Pain Stated complaint: HIP TIGHTNESS Time Seen by Provider: 04/16/23 14:44 History of Present Illness 82-year-old male who presents to the emergency department via EMS accompanied by family for evaluation of left hip pain. Patient states he took his dog to the dog park and while attempting to get him back in the car turned wrong and fell onto his left side. He notes pain in the left hip/thigh. He is unable to get up on his own and had to scoot around to the car and have assistance by by standards into his vehicle. He did drive home and was helped out of his vehicle by his warehouse logistics manager and then called EMS. He denies numbness/tingling into the foot. No left knee or ankle pain. He denies hitting his head or loss of consciousness. He is on Eliquis with history of ICD. He denies any other injury. Denies previous injury or surgery to this extremity. Was not feeling dizzy/lightheaded or experiencing chest pain or shortness of breath prior to his fall. He has not taken anything for his symptoms. Home Medications Medication Instructions Recorded Confirmed Type carvedilol 6.25 mg tablet (Coreg) 6.25 mg PO HS 09/09/19 04/09/22 History digoxin 250 mcg (0.25 mg) tablet 250 mcg PO QAM 09/09/19 04/09/22 History linagliptin 5 mg tablet (Tradjenta) 5 mg PO QAM 09/09/19 04/09/22 History acetaminophen 500 mg tablet 1,000 mg PO QAM 02/11/20 04/09/22 History (Tylenol Extra Strength) furosemide 40 mg tablet 40 mg PO WK 09/07/20 04/09/22 History metformin 500 mg tablet 500 mg PO QPM 09/07/20 04/09/22 History cholecalciferol (vitamin D3) 1,250 50,000 unit PO MONTHLY 11/30/20 04/09/22 History mcg (50,000 unit) capsule albuterol sulfate 90 mcg/actuation 2 puff inhalation 6XD PRN Wheezing 12/29/20 04/09/22 History aerosol inhaler (Proventil HFA) lanolin-mineral oil lotion 1 applic topical BID PRN Dry Skin 12/29/20 04/09/22 History (Eucerin Original lotion) polyethylene glycol 3350 17 gram 17 g PO DAILY PRN Constipation 12/29/20 04/09/22 History oral powder packet (Miralax) potassium 99 mg tablet 99 mg PO QAM 11/02/21 04/09/22 History apixaban 5 mg tablet (Eliquis) 5 mg PO BID 03/05/22 04/09/22 History Allergies Allergy/AdvReac Type Severity Reaction Status Date / Time pseudoephedrine AdvReac Mild uti-30 YRS Verified 04/09/22 06:16 [From Sudafed] AGO! Past Med/Surg History Medical History (Updated 04/16/23 @ 17:00 by Isha Hughes PA-C) Nonischemic cardiomyopathy HFrEF (heart failure with reduced ejection fraction) Coronary artery disease EF 30-35% Discitis of lumbar region History of COVID-19 [facility] [place] - sore throat only December 31, 2021. On anticoagulant therapy ICD (implantable cardioverter-defibrillator) in place placed October 2021 at [facility]. Asthma HX -USES INHALERS DURING WINTER MONTHS PRN Urinary incontinence GERD (gastroesophageal reflux disease) hx-UNDER CONTROL Diabetes mellitus, type 2 NIDDM History of Mohs micrographic surgery for skin cancer SKIN Hyperlipidemia Pacemaker placed 10 yrs ago> Afib > last checked approx 12/[address] Manning, [facility] [place] > [employer]-F/U [facility] [place] - left subclavian left pacemaker in place 12/2021 at [facility] but placed a defibrillator d/t battery in the pacemaker (pt believes it does still work) BPH (benign prostatic hyperplasia) Atrial fibrillation dx 10 yrs ago> Eliquis > no cardioversions Hydronephrosis HX Surgical History (Updated 04/16/23 @ 16:46 by Ellen Marroquin PA-C) Status post recent transurethral resection of prostate History of right [place] [facility] [place] right eye lamellar keratectomy Hx of left [place] [facility] [place] made ASA 3. 2mg versed. 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 Required: No Beliefs That Will Affect Care: None marital status: Single Current Living Situation: Alone current occupational status: retired How many Children do You have: 0 Feels Safe at Home: Yes Assistive Devices: Denture - Upper and Glasses Physical Exam Vital Signs Vital Signs - 24 hr 04/16/23 14:25 Temperature 36.9 C Temperature Source Skin Pulse Rate 94 H Respiratory Rate 20 Respiratory Effort / Characteristics Non-Labored Spontaneous Respiratory Depth Normal Respiratory Pattern Regular Blood Pressure 161/104 H Blood Pressure Mean 123 Pulse Oximetry 96 Oxygen Delivery Method Room Air Sepsis Recent Fever Within 48 Hours No Sepsis New/Unexplained Change in Mental Status N/A Sepsis Action Taken by Nursing No Action Required Constitutional: alert and oriented x3. no acute distress. Nontoxic HEENT: normocephalic, atraumatic. No facial trauma. No scalp tenderness or hematoma. Normal conjunctiva.PERRLA. EOM's grossly intact. No cutler signs or raccoon eyes. TMs pearly deutsch without effusion. No hemotympanum. Pharynx pink without exudate. Tonsils nonenlarged. Mucus membranes moist Neck: neck is supple, nontender. Midline C-spine nontender Respiratory: lungs are clear to auscultation without wheezes, rhonchi, or rales bilaterally. equal chest rise. normal respiratory effort, no accessory muscle use. Cardiovascular: normal heart sounds without murmur. regular rate and rhythm. GI: abdomen is soft, nontender. No palpable masses. No rebound tenderness or guarding. No CVA tenderness MSK: Tenderness to the left proximal thigh fixed in external rotation. No knee or ankle tenderness. Remaining extremities unremarkable. No midline thoracic or lumbar spinal tenderness. Peripheral vascular: Lower extremities warm and well perfused with palpable pedal pulses. Brisk capillary refill all digits. Sensation grossly intact Neuro: without focal neuro deficits. GCS 15. Answers questions appropriately, follows commands. CNII-XII intact. Speech clear, tongue midline, without facial droop. Strength equal throughout all for extremities. Psych:appropriate mood and affect. Medical Decision Making Differential Diagnosis Fracture, subluxation, dislocation, contusion, ligamentous injury, neurovascular, compartment syndrome, rhabdomyolysis, as well as other pathologies. Laboratory Data Attestation: I reviewed the patient's lab results. 04/16/23 15:12 04/16/23 15:12 Lab Results 04/16/23 Range/Units 15:12 WBC 12.69 H (4.8-10.8) K/ul RBC 5.17 (4.70-6.10) M/uL Hgb 15.6 (14.0-18.0) g/dl Hct 47.1 (42.0-52.0) % MCV 91.1 (80.0-100.0) fL MCH 30.2 (25.0-34.0) pg MCHC 33.1 (32.0-36.0) g/dL RDW Std Deviation 43.8 (36.4-46.3) fL RDW Coeff of Shaniqua 12.9 (11.5-14.5) % Plt Count (130-400) K/uL MPV (9.4-12.4) fL Immature Gran % (Auto) 0.9 % Neut % (Auto) 89.8 % Lymph % (Auto) 3.9 % [place] % (Auto) 4.1 % Eos % (Auto) 0.8 % Baso % (Auto) 0.5 % Neut # (Auto) 11.40 H (1.40-6.50) K/uL Lymph # (Auto) 0.49 L (1.20-3.40) K/uL [place] # (Auto) 0.52 (0.11-0.59) K/uL Eos # (Auto) 0.10 (0.00-0.50) K/uL Baso # (Auto) 0.06 (0.00-0.20) K/uL Immature Gran # (Auto) 0.12 (0.01-0.20) K/uL PT 11.5 (9.0-12.0) Seconds INR 1.1 (0.9-1.1) APTT 30.2 (21.0-31.0) Seconds PTT Ratio 1.1 Sodium 136 (136-145) mmol/L Potassium 4.6 (3.5-5.1) mmol/L Chloride 100 (98-107) mmol/L Carbon Dioxide 29 (21-32) mmol/L Anion Gap 7 (3-11) BUN 32 H (6-23) mg/dl Creatinine 1.47 H (0.6-1.4) mg/dl Est Cr Clr Drug Dosing Not Reportable Est GFR ( Amer) 50.4 ml/min Est GFR (Non-Af Amer) 43.5 ml/min BUN/Creatinine Ratio 21.8 H (10-20) Glucose 289 H (70-99(Fasting)) mg/dl Calcium 11.1 H (8.6-10.3) mg/dl Total Bilirubin 0.9 (0.2-1.0) mg/dl AST 27 (13-39) U/L ALT 22 (7-52) U/L Alkaline Phosphatase 89 (34-104) U/L Total Protein 7.8 (6.0-8.3) gm/dl Albumin 4.5 (3.4-5.0) gm/dl Globulin 3.3 (2.5-4.0) gm/dl Albumin/Globulin Ratio 1.4 (0.9-2) Imaging Data My Impression: Left hip x-ray per my interpretation demonstrates femoral neck fracture and no dislocation Radiologist's Impression: Hip/Pelvis X-Ray 04/16/23 14:25 XR femur LT 2V routine, XR hip LT 2V w pelvis CLINICAL HISTORY: fall. Left leg pain. COMPARISON STUDY: Pelvis 09/09/2019. FINDINGS: There is mildly displaced and slightly impacted left femoral neck fracture. No dislocation. There visualized pelvic bones are intact. The mid to distal left femur is also intact. There are mild vascular calcifications. The sacrum appears intact. No fracture or dislocation within the right hip. The bones are osteopenic. IMPRESSION: Mildly displaced left femoral neck fracture. ACT 112: Negative or not required by law. Electronically signed by: Trenton Rosas M.D. 04/16/2023 4:[address] 04/16/23 14:55 CT cervical spine wo con CLINICAL HISTORY: fall on eliquis TECHNIQUE: Multidetector row helical CT of the cervical spine was performed without administration of intravenous contrast. Coronal and sagittal reformations were obtained. Automated dose lowering techniques and/or adjustment according to patient size were utilized for this exam. Comparison: None available at the time of this dictation. FINDINGS: No acute fractures or subluxations are identified. Degenerative changes are seen in the visualized spine. The alignment is normal. Bilateral emphysema is seen. IMPRESSION: Degenerative changes without evidence of acute bony injury. ACT 112: Negative or not required by law. Electronically signed by: Angelo Mcconnell M.D. 04/16/2023 3:[address] 04/16/23 14:55 CT SCAN OF THE BRAIN WITHOUT IV CONTRAST CLINICAL HISTORY: Fall. COMPARISON STUDY: CT of the brain dated 09/09/2019. TECHNIQUE: Unenhanced axial CT scan of the brain is performed from the vertex to the skull base. A dose lowering technique was utilized adhering to the principles of ALARA. FINDINGS: Brain parenchyma: There is age-related involutional change noting mild subcortical and periventricular microangiopathic disease. There is no hemorrhage, mass effect, or evidence of acute territorial ischemia by CT criteria. Deutsch-white matter differentiation is preserved. No extra-axial fluid collection is seen. 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 Ventricles, sulci, cisterns: Prominent secondary to involutional change. Intracranial vasculature: There is atherosclerotic calcification of the cavernous carotid and vertebral arteries. Calvarium: The skeletal structures are osteopenic. No depressed calvarial fracture is seen. Sinuses and mastoids: The visualized paranasal sinuses are clear. The mastoid air cells are well pneumatized. Orbits: The bony orbits are grossly intact. There are bilateral ocular lens implants. IMPRESSION: There is no hemorrhage, mass effect, or evidence of acute territorial ischemia by CT criteria. ACT 112: Negative or not required by law. Electronically signed by: Grabiel Ivory M.D. 04/16/2023 3:46 PM Femur X-Ray 04/16/23 15:52 XR femur LT 2V routine, XR hip LT 2V w pelvis CLINICAL HISTORY: fall. Left leg pain. COMPARISON STUDY: Pelvis 09/09/2019. FINDINGS: There is mildly displaced and slightly impacted left femoral neck fracture. No dislocation. There visualized pelvic bones are intact. The mid to distal left femur is also intact. There are mild vascular calcifications. The sacrum appears intact. No fracture or dislocation within the right hip. The bones are osteopenic. IMPRESSION: Mildly displaced left femoral neck fracture. ACT 112: Negative or not required by law. Electronically signed by: Trenton Rosas M.D. 04/16/2023 4:17 PM MDM Narrative 82-year-old male who presents to the emergency department via EMS accompanied by family for evaluation of left hip pain status post mechanical fall. Reviewed pertinent visits in past medical history performed. Vital signs in ED stable, afebrile. Patient was seen and evaluated as above. He notes falling onto this left hip/leg earlier this today. He is on Eliquis for ICD. He denies hitting his head or loss of consciousness. Given mechanism of injury as well as Eliquis therapy, head/neck CTs were performed to rule out intracranial pathology. These were fortunately unremarkable. X-ray of the left hip and femur demonstrate mildly displaced and impacted left femoral neck fracture. No dislocation. On exam, patient is well-appearing in no acute distress. He is neurologically intact without focal deficits. GCS 15. He is mildly tender to the left lateral hip and it is fixed in external rotation. Neurovascularly intact. No open wounds. There are no other signs for trauma. Remaining physical exam was otherwise unremarkable. Patient declined need for pain medication while in the ED. Basic labs were obtained likely admission. CBC demonstrates mild leukocytosis with 12. No acute anemia. CMP without significant electrolyte abnormalities. Renal function appears to be at baseline at 1.4. Coags within normal limits. Case was discussed with on-call orthopedics, Dr. Platt and advised keeping patient n.p.o. and plans for surgical intervention tomorrow. Patient was reevaluated on multiple occasions throughout ED stay and remained stable without new concerns. He was updated on all exam findings and test results as well as recommendations from Dr. Platt. He will need admission to the hospital for orthopedic evaluation and surgery. Case was discussed with hospitalist physician assistant offset press operator, Genaro Kwok PA-C who graciously accepted patient to their service for further management. Patient was admitted in stable condition. Case was discussed with ED attending, Dr. Milton who agrees with workup and treatment plan Impression & Plan Fracture of femoral neck, left, Fall from slip, trip, or stumble, Chronic anticoagulation Discharge Plan Visit Data Chief Complaint: Hip Pain Stated Complaint: HIP TIGHTNESS ED Provider: Kavon Milton ED Midlevel Provider: Isha Hughes Discharge Problem: Fracture of femoral neck, left, Fall from slip, trip, or stumble, Chronic anticoagulation Patient Disposition: Admitted As Inpatient Forms Stand Alone Forms: My [facility] Prescriptions Prescriptions: No Action cholecalciferol (vitamin D3) 1,250 mcg (50,000 unit) capsule 50,000 unit PO MONTHLY acetaminophen [Tylenol Extra Strength] 500 mg Tablet 1,000 mg PO QAM carvedilol [Coreg] 6.25 mg tablet 6.25 mg PO HS digoxin 250 mcg (0.25 mg) tablet 250 mcg PO QAM Tradjenta 5 mg tablet 5 mg PO QAM Rx Instructions: new script furosemide 40 mg Tablet 40 mg PO WK metformin 500 mg Tablet 500 mg PO QPM Eucerin Original Lotion 1 applic topical BID PRN (Reason: Dry Skin) Rx Instructions: apply to bilateral lower legs BID polyethylene glycol 3350 [Miralax] 17 gram Powder In Packet 17 g PO DAILY PRN (Reason: Constipation) albuterol sulfate [Proventil HFA] 90 mcg/actuation Hfa Aerosol Inhaler 2 puff INHALATION 6XD PRN (Reason: Wheezing) potassium 99 mg Tablet 99 mg PO QAM Eliquis 5 mg Tablet 5 mg PO BID Referrals Referrals: Eleazar Gaffney [Primary Care Provider] -
--- NOTE | 2023-04-16 15:48 | CT Scan Report ---
CT SCAN OF THE BRAIN WITHOUT IV CONTRAST CLINICAL HISTORY: Fall. COMPARISON STUDY: CT of the brain dated 09/09/2019. TECHNIQUE: Unenhanced axial CT scan of the brain is performed from the vertex to the skull base. A do se lowering technique was utilized adhering to the principles of ALARA. FINDINGS: Brain parenchyma: There is age-related involutional change noting mild subcortical and periventricula r microangiopathic disease. There is no hemorrhage, mass effect, or evidence of acute territorial isc hemia by CT criteria. Deutsch-white matter differentiation is preserved. No extra-axial fluid collection is seen. 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 Ventricles, sulci, cisterns: Prominent secondary to involutional change. Intracranial vasculature: There is atherosclerotic calcification of the cavernous carotid and vertebr al arteries. Calvarium: The skeletal structures are osteopenic. No depressed calvarial fracture is seen. Sinuses and mastoids: The visualized paranasal sinuses are clear. The mastoid air cells are well pneu matized. Orbits: The bony orbits are grossly intact. There are bilateral ocular lens implants. IMPRESSION: There is no hemorrhage, mass effect, or evidence of acute territorial ischemia by CT shelby lynne. ACT 112: Negative or not required by law. Electronically signed by: Grabiel Ivory M.D. 04/16/2023 3:46 PM
[2023-04-16 15:55] LABS: Alanine Aminotransferase 22 U/L (7-52); Albumin Globulin Ratio 1.4 (0.9-2); Albumin Level 4.5 gm/dl (3.4-5.0); Alkaline Phosphatase 89 U/L (34-104); Anion Gap 7 (3-11); Aspartate Aminotransferase 27 U/L (13-39); BUN Creatinine Ratio 21.8 (10-20); Bilirubin,Total 0.9 mg/dl (0.2-1.0); Blood Urea Nitrogen 32 mg/dl (6-23); Calcium 11.1 mg/dl (8.6-10.3); Carbon Dioxide 29 mmol/L (21-32); Chloride 100 mmol/L (98-107); Est GFR (African American) 50.4 ml/min; Est GFR (Non-African American) 43.5 ml/min; Globulin 3.3 gm/dl (2.5-4.0); Glucose 289 mg/dl (70-99(Fasting)); Potassium 4.6 mmol/L (3.5-5.1); Sodium 136 mmol/L (136-145); Total Protein 7.8 gm/dl (6.0-8.3)
--- NOTE | 2023-04-16 15:57 | CT Scan Report ---
CT cervical spine wo con CLINICAL HISTORY: fall on eliquis TECHNIQUE: Multidetector row helical CT of the cervical spine was performed without administration of intravenous contrast. Coronal and sagittal reformations were obtained. Automated dose lowering techn iques and/or adjustment according to patient size were utilized for this exam. Comparison: None available at the time of this dictation. FINDINGS: No acute fractures or subluxations are identified. Degenerative changes are seen in the visualized sp ine. The alignment is normal. Bilateral emphysema is seen. IMPRESSION: Degenerative changes without evidence of acute bony injury. ACT 112: Negative or not required by law. Electronically signed by: Angelo Mcconnell M.D. 04/16/2023 3:55 PM
[2023-04-16 16:08] LABS: INR 1.1 (0.9-1.1); Partial Thromboplastin Ratio 1.1; Partial Thromboplastin Time 30.2 Seconds (21.0-31.0); Prothrombin Time 11.5 Seconds (9.0-12.0)
--- NOTE | 2023-04-16 16:18 | XRay Report ---
XR femur LT 2V routine, XR hip LT 2V w pelvis CLINICAL HISTORY: fall. Left leg pain. COMPARISON STUDY: Pelvis 09/09/2019. FINDINGS: There is mildly displaced and slightly impacted left femoral neck fracture. No dislocation. There visualized pelvic bones are intact. The mid to distal left femur is also intact. There are mil d vascular calcifications. The sacrum appears intact. No fracture or dislocation within the right hip . The bones are osteopenic. IMPRESSION: Mildly displaced left femoral neck fracture. ACT 112: Negative or not required by law. Electronically signed by: Trenton Rosas M.D. 04/16/2023 4:17 PM
[2023-04-16 16:38] LABS: Hematocrit (blood only) 47.1 % (42.0-52.0); Hemoglobin 15.6 g/dl (14.0-18.0); Mean Corpuscular Hemoglobin 30.2 pg (25.0-34.0); Mean Corpuscular Hgb Conc 33.1 g/dL (32.0-36.0); Mean Corpuscular Volume 91.1 fL (80.0-100.0); RDW Coefficient of Variation 12.9 % (11.5-14.5); RDW Standard Deviation 43.8 fL (36.4-46.3); Red Blood Count 5.17 M/uL (4.70-6.10); White Blood Count 12.69 K/ul (4.8-10.8)
[2023-04-16 16:39] LABS: Basophils # (auto) 0.06 K/uL (0.00-0.20); Basophils % (auto) 0.5 %; Eosinophils % (auto) 0.8 %; Immature Granulocytes # (auto) 0.12 K/uL (0.01-0.20); Immature Granulocytes % (auto) 0.9 %; Lymphocytes # (auto) 0.49 K/uL (1.20-3.40); Lymphocytes % (auto) 3.9 %; Monocytes # (auto) 0.52 K/uL (0.11-0.59); Monocytes % (auto) 4.1 %; Neutrophils % (auto) 89.8 %
--- NOTE | 2023-04-16 16:42 | Emergency Department Note ---
ED Visit Note I was consulted by the Advanced Practice Provider Isha Hughes PA-C. I saw the patient personally and performed a substantive portion of the visit. This includes aspects of the HPI, MDM, diagnostic interpretations, and disposition/plan. The patient presented due to concern for fall and does have a left hip fracture. Patient was admitted to the medicine service. .
--- NOTE | 2023-04-16 16:50 | History & Physical Report ---
Date of Service April 16, 2023 Assessment & Plan (1) Fracture of femoral neck, left: Plan: This is an 82 y/o male with DM2, chronic HFrEf, non-ischemic cardiomyopathy, CAD, s/p ICD placement, persistent atrial fibrillation on chronic Eliquis, BPH and other history as listed below who presents to the ED today after a fall with resultant left hip pain. Work-up in the ED revealed a mildly displaced left femoral neck fracture so pt was referred for admission. Pt thinks that his last dose of Eliquis was yesterday evening. He denies anginal symptoms or over symptoms of CHF. He has tolerated anesthesia without issue previously. - Admit to med surg floor - Consult orthopedics for possible surgical intervention - recommend holding Eliquis x 48 hours if possible before OR to minimize risk of bleeding complications - NPO after midnight - discussed with orthopedics and tentative plan for OR tomorrow late afternoon - Pain control - Check EKG, UA - Labs in AM - CBC, BMP (2) Diabetes mellitus, type 2: Plan: Insulin sliding scale while admitted BSG ACHS (or Q6 hrs while NPO) A1c in AM Diabetic diet tonight (3) Atrial fibrillation: Plan: Eliquis currently on hold for the OR Continue beta-noy - rate controlled in the 80s (4) HFrEF (heart failure with reduced ejection fraction): (5) Coronary artery disease: (6) BPH (benign prostatic hyperplasia): Plan Continue other home medications as appropriate. Pt seen and reviewed with collaborating physician, Dr. Hooper. Plan of care discussed and as outlined above. Code Status: Full code DVT Prophylaxis: SCDs for now Latricia Marroquin PA-C History of Present Illness Chief Complaint: fall with resultant hip pain Primary Care Provider: Eleazar Gaffney This is an 82 y/o male with DM2, chronic HFrEf, non-ischemic cardiomyopathy, CAD, s/p ICD placement, persistent atrial fibrillation on chronic Eliquis, BPH and other history as listed below who presents to the ED today after a fall with resultant left hip pain. Pt reports that he took his 90 lb dog to the dog park today in the rain, and on the way back to the car, his dog pulled unexpectedly and the pt lost his balance and fell, landing directly on the left hip. He denies syncopal event, did not hit his head, did not injure anything else. Currently, he is having mild intermittent cramping in the muscles of the left hip that he rates as a 1-2 out of 10 and that radiates to his left groin. Notes increased discomfort if he tries to fully sit up. He is able to move his toes bilaterally, no significant numbness in the foot. He has chronic RLE lymphedema for which he uses prn furosemide and which is currently at baseline. Pt lives alone, does not use assistive devices. He walked one mile two days ago and had no chest pain, lightheadedness, MCKEON, or palpitations. He reports walking 0.5-1 mile most days. He has stable orthopnea and sleeps propped up. This is no worse than usual. Pt has a pacer/ICD - reports the device was recently interrogated and without abnormality. He is on chronic Eliquis due to persistent atrial fibrillation - thinks that his last dose was yesterday. Allergies Allergy/AdvReac Type Severity Reaction Status Date / Time pseudoephedrine AdvReac Mild uti-30 YRS Verified 04/16/23 17:04 [From [facility]] AGO! Home Medications Medication Instructions Recorded Confirmed Type carvedilol 6.25 mg tablet (Coreg) 6.25 mg PO BID 09/09/19 04/16/23 History linagliptin 5 mg tablet (Tradjenta) 5 mg PO QDL 09/09/19 04/16/23 History acetaminophen 500 mg tablet 1,000 mg PO QAM 02/11/20 04/16/23 History (Tylenol Extra Strength) furosemide 40 mg tablet 40 mg PO WK 09/07/20 04/16/23 History cholecalciferol (vitamin D3) 1,250 50,000 unit PO MONTHLY 11/30/20 04/16/23 History mcg (50,000 unit) capsule albuterol sulfate 90 mcg/actuation 2 puff inhalation DIRECTED PRN 12/29/20 04/16/23 History aerosol inhaler (Proventil HFA) Wheezing polyethylene glycol 3350 17 gram 17 g PO DAILY PRN Constipation 12/29/20 04/16/23 History oral powder packet (Miralax) apixaban 5 mg tablet (Eliquis) 5 mg PO BID 03/05/22 04/16/23 History ascorbic acid (vitamin C) 500 mg 500 mg PO DAILY 04/16/23 04/16/23 History tablet (Vitamin C) lisinopril 5 mg tablet 5 mg PO DAILY 04/16/23 04/16/23 History Past Med/Surg History Medical History CKD (chronic kidney disease) Nonischemic cardiomyopathy HFrEF (heart failure with reduced ejection fraction) Coronary artery disease EF 30-35% Discitis of lumbar region History of COVID-19 [facility] - sore throat only December 31, 2021. On anticoagulant therapy ICD (implantable cardioverter-defibrillator) in place placed October 2021 at [facility]. Asthma HX -USES INHALERS DURING WINTER MONTHS PRN Urinary incontinence GERD (gastroesophageal reflux disease) hx-UNDER CONTROL Diabetes mellitus, type 2 NIDDM History of Mohs micrographic surgery for skin cancer SKIN Hyperlipidemia Pacemaker placed 10 yrs ago> Afib > last checked approx 12/[address] Manning, [facility] in [place] > [employer]-F/U [facility] - left subclavian left pacemaker in place 12/2021 at [facility] but placed a defibrillator d/t battery in the pacemaker (pt believes it does still work) BPH (benign prostatic hyperplasia) Atrial fibrillation dx 10 yrs ago> Eliquis > no cardioversions Hydronephrosis HX Surgical History Status post recent transurethral resection of prostate History of right [place] [facility] [place] right eye lamellar [place] of [place] [facility] [place] ASA 3. 2mg versed. S/P epidural steroid injection X 5 History of prostate surgery LASER SURGERY History of tooth extraction H/O colonoscopy Family History Sister Liver cancer Other No family history of adverse response to anesthesia Social History Smoking Status: Never smoker Tobacco Type: Cigarettes Second Hand Exposure: No; Do You Dip or Chew Tobacco: No; Tobacco Cessation Education Requested by Patient: No Hx Alcohol Use: No Hx Substance Use: No Preferred Language: Setswana Communication Ability: Effective Log Operations Coordinator Required: No Beliefs That Will Affect Care: None marital status: Single Current Living Situation: Alone current occupational status: retired How many Children do You have: 0 Other Information That Helps Us Care for You: No Feels Safe at Home: Yes Safety Concerns: Feels Safe At This Time Assistive Devices: Walker Review of Systems Review of Systems: All systems reviewed & are unremarkable except as noted in HPI & below Constitutional: no fever, no chills and no fatigue Ear, Nose, Mouth, Throat: no nasal congestion, no nasal discharge and no sore throat Respiratory: no cough and no dyspnea Cardiovascular: no chest pain, no dyspnea on exertion, no palpitations and no syncope Gastrointestinal: no abdominal pain, no nausea and no vomiting Genitourinary: no dysuria or no hematuria Musculoskeletal: as per Subjective / HPI Integumentary: no yellowing of the skin Neurologic: no generalized weakness, no seizure-like activity and no confusion Psychiatric: no depression and no anxiety Physical Exam Physical Exam: See physician note for the rest of the physical exam General: awake, alert, NAD Eyes: no scleral icterus Neck: trachea midline Extremities: LLE shortened and externally rotated, RLE with marked lymphedema; distal pulses intact and equal bilaterally Skin: no jaundice, no open wounds noted over the left hip Results & Data Results & Data Vital Signs (Past 12 Hours) Vital Signs Temp Pulse Resp BP Pulse Ox O2 Del Method 04/16/23 14:25 36.9 C 94 H 20 161/104 H 96 Room Air Laboratory Results Laboratory Results - last 24 hr 04/16/23 15:12 WBC 12.69 H RBC 5.17 Hgb 15.6 Hct 47.1 MCV 91.1 MCH 30.2 MCHC 33.1 RDW Std Deviation 43.8 RDW Coeff of Shaniqua 12.9 Plt Count MPV Immature Gran % (Auto) 0.9 Neut % (Auto) 89.8 Lymph % (Auto) 3.9 [place] % (Auto) 4.1 Eos % (Auto) 0.8 Baso % (Auto) 0.5 Neut # (Auto) 11.40 H Lymph # (Auto) 0.49 L [place] # (Auto) 0.52 Eos # (Auto) 0.10 Baso # (Auto) 0.06 Immature Gran # (Auto) 0.12 PT 11.5 INR 1.1 APTT 30.2 PTT Ratio 1.1 Sodium 136 Potassium 4.6 Chloride 100 Carbon Dioxide 29 Anion Gap 7 BUN 32 H Creatinine 1.47 H Est Cr Clr Drug Dosing Not Reportable Est GFR ( Amer) 50.4 Est GFR (Non-Af Amer) 43.5 BUN/Creatinine Ratio 21.8 H Glucose 289 H Calcium 11.1 H Total Bilirubin 0.9 AST 27 ALT 22 Alkaline Phosphatase 89 Total Protein 7.8 Albumin 4.5 Globulin 3.3 Albumin/Globulin Ratio 1.4 Diagnostic Findings Hip/Pelvis X-Ray 04/16/23 14:25 XR femur LT 2V routine, XR hip LT 2V w pelvis CLINICAL HISTORY: fall. Left leg pain. COMPARISON STUDY: Pelvis 09/09/2019. FINDINGS: There is mildly displaced and slightly impacted left femoral neck fracture. No dislocation. There visualized pelvic bones are intact. The mid to distal left femur is also intact. There are mild vascular calcifications. The sacrum appears intact. No fracture or dislocation within the right hip. The bones are osteopenic. IMPRESSION: Mildly displaced left femoral neck fracture. ACT 112: Negative or not required by law. Electronically signed by: Trenton Rosas M.D. 04/16/2023 4:[address] 04/16/23 14:55 CT cervical spine wo con CLINICAL HISTORY: fall on eliquis TECHNIQUE: Multidetector row helical CT of the cervical spine was performed without administration of intravenous contrast. Coronal and sagittal reformations were obtained. Automated dose lowering techniques and/or adjustment according to patient size were utilized for this exam. Comparison: None available at the time of this dictation. FINDINGS: No acute fractures or subluxations are identified. Degenerative changes are seen in the visualized spine. The alignment is normal. Bilateral emphysema is seen. IMPRESSION: Degenerative changes without evidence of acute bony injury. ACT 112: Negative or not required by law. Electronically signed by: Angelo Mcconnell M.D. 04/16/2023 3:[address] 04/16/23 14:55 CT SCAN OF THE BRAIN WITHOUT IV CONTRAST CLINICAL HISTORY: Fall. COMPARISON STUDY: CT of the brain dated 09/09/2019. TECHNIQUE: Unenhanced axial CT scan of the brain is performed from the vertex to the skull base. A dose lowering technique was utilized adhering to the principles of ALARA. FINDINGS: Brain parenchyma: There is age-related involutional change noting mild subcortical and periventricular microangiopathic disease. There is no hemorrhage, mass effect, or evidence of acute territorial ischemia by CT criteria. Deutsch-white matter differentiation is preserved. No extra-axial fluid collection is seen. 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 Ventricles, sulci, cisterns: Prominent secondary to involutional change. Intracranial vasculature: There is atherosclerotic calcification of the cavernous carotid and vertebral arteries. Calvarium: The skeletal structures are osteopenic. No depressed calvarial fracture is seen. Sinuses and mastoids: The visualized paranasal sinuses are clear. The mastoid air cells are well pneumatized. Orbits: The bony orbits are grossly intact. There are bilateral ocular lens implants. IMPRESSION: There is no hemorrhage, mass effect, or evidence of acute territorial ischemia by CT criteria. ACT 112: Negative or not required by law. Electronically signed by: Grabiel Ivory M.D. 04/16/2023 3:46 PM Femur X-Ray 04/16/23 15:52 XR femur LT 2V routine, XR hip LT 2V w pelvis CLINICAL HISTORY: fall. Left leg pain. COMPARISON STUDY: Pelvis 09/09/2019. FINDINGS: There is mildly displaced and slightly impacted left femoral neck fracture. No dislocation. There visualized pelvic bones are intact. The mid to distal left femur is also intact. There are mild vascular calcifications. The sacrum appears intact. No fracture or dislocation within the right hip. The bones are osteopenic. IMPRESSION: Mildly displaced left femoral neck fracture. ACT 112: Negative or not required by law. Electronically signed by: Trenton Rosas M.D. 04/16/2023 4:17 PM Supervising Physician Co-Signing Physician Notes I have seen and examined the patient and have discussed the case with the provider above. I agree with the assessment and plan as stated. 82 yo M with L hip fracture after mechanical fall. He has great functional status, frequently walking 1mile + independently without symptoms of chest pain, SOB, etc. Cardiomyopathy is present which appears compensated. Consider MRA/jardiance in line with GDMT guidance. Continues on ACEI. Last dose apixaban was 24 hours ago. Recommend holding apixaban at least 48 hours prior to surgery. No h/o DVT-cont with standard DVT prophylaxis measures. No h/o reaction to anesthesia in the past. EKG reviewed revealing underlying afib and no evidence of ACS. OK to proceed to surgery after 48 hours off apixaban. DO Rufus (1) Fracture of femoral neck, left Encounter type: initial encounter Fracture type: closed Qualified Code(s): S72.002A - Fracture of unspecified part of neck of left femur, initial encounter for closed fracture (2) Diabetes mellitus, type 2 Diabetes mellitus complication status: without complication Diabetes mellitus roasterman insulin use: without roasterman use Qualified Code(s): E11.9 - Type 2 diabetes mellitus without complications (3) Atrial fibrillation Atrial fibrillation type: persistent (not longstanding) Qualified Code(s): I48.19 - Other persistent atrial fibrillation (5) Coronary artery disease Associated angina: without angina Coronary Disease-Associated Artery/Lesion type: [place] artery [place] vs. transplanted heart: [place] heart Qualified Code(s): I25.10 - Atherosclerotic heart disease of [place] coronary artery without angina pectoris (6) BPH (benign prostatic hyperplasia) Lower urinary tract symptom presence: unspecified whether lower urinary tract symptoms present Qualified Code(s): N40.0 - Benign prostatic hyperplasia without lower urinary tract symptoms
[2023-04-16 18:16] LABS: Appearance Urine Turbid (Clear); Bacteria Urine Automated 4+ (Negative); Bilirubin Urine Negative (Negative); Blood Urine 2+ (Negative); Cast Urine Automated 0 /lpf (0-5); Color Urine Yellow; Epithelial Cell Urine Auto 20-30 /lpf (0-5); Glucose Urine UA Trace (Negative); Ketones Urine Trace (Negative); Leukocyte Esterase Urine 3+ (Negative); Nitrite Urine Negative (Negative); Protein Urine 1+ (Negative); RBC Urine Automated 0-4 /hpf (0-4); Specific Gravity Urine 1.014 (1.000-1.030); Urobilinogen Urine Negative (Negative); WBC Urine Automated >30 /hpf (0-5)
[2023-04-16] MEDS ORDERED: CARBOHYDRATES FOR HYPOGLYCEMIA PO PRN (18:38)
[2023-04-16] MEDS ORDERED: GLUCOSE 10 TAB/TUBE PO PRN (18:38)
[2023-04-16] MEDS ORDERED: ONDANSETRON INJ 2 MG/ML 2 ML VIAL IV PRN (18:38)
[2023-04-16] MEDS ORDERED: MoRPHine SULFATE 4 MG/ML 1 ML CARP\\VIAL IV PRN (18:38)
[2023-04-16] MEDS ORDERED: oxyCODONE HCL IR 5 MG TAB (IMMEDIATE RELEASE) PO PRN ×2 (18:38)
[2023-04-16] MEDS ORDERED: GLUCAGON FOR INJ 1 MG VIAL SQ PRN (18:38)
[2023-04-16] MEDS ORDERED: MoRPHine SULFATE 2 MG/ML CARP IV PRN (18:38)
[2023-04-16] MEDS ORDERED: bisacodyL 10 MG SUPP PR PRN (18:38)
[2023-04-16] MEDS ORDERED: GLUCOSE 40% GEL 15 GM TUBE PO PRN (18:38)
[2023-04-16] MEDS ORDERED: NALOXONE HCL 0.4 MG/1 ML VIAL/CARP IV PRN (18:38)
[2023-04-16] MEDS ORDERED: MAGNESIUM HYDROXIDE SUSP 30 ML UDC PO PRN (18:38)
[2023-04-16] MEDS ORDERED: DEXTROSE 50% 50 ML SYRINGE IV PRN (18:38)
--- NOTE | 2023-04-16 19:31 | Anesthesiology Consultation ---
Date of Service April 16, 2023 Assessment & Plan (1) Encounter for pre-operative examination: Chart Review Chart Review: Acceptable Risk for Surgery (when far enough out from eliquis) History Height/Weight Height: 6 ft Weight: 72.5 kg Allergies Allergy/AdvReac Type Severity Reaction Status Date / Time pseudoephedrine AdvReac Mild uti-30 YRS Verified 04/16/23 17:04 [From [facility]] AGO! Medications Home Medications Medication Instructions Recorded Confirmed Last Taken carvedilol 6.25 mg tablet (Coreg) 6.25 mg PO BID 09/09/19 04/16/23 04/15/23 linagliptin 5 mg tablet (Tradjenta) 5 mg PO QDL 09/09/19 04/16/23 04/15/23 acetaminophen 500 mg tablet 1,000 mg PO QAM 02/11/20 04/16/23 04/16/23 (Tylenol Extra Strength) furosemide 40 mg tablet 40 mg PO WK 09/07/20 04/16/23 04/14/23 cholecalciferol (vitamin D3) 1,250 50,000 unit PO MONTHLY 11/30/20 04/16/23 04/08/22 mcg (50,000 unit) capsule albuterol sulfate 90 mcg/actuation 2 puff inhalation DIRECTED PRN 12/29/20 04/16/23 04/08/22 aerosol inhaler (Proventil HFA) Wheezing polyethylene glycol 3350 17 gram 17 g PO DAILY PRN Constipation 12/29/20 04/16/23 04/08/22 oral powder packet (Miralax) apixaban 5 mg tablet (Eliquis) 5 mg PO BID 03/05/22 04/16/23 04/15/23 ascorbic acid (vitamin C) 500 mg 500 mg PO DAILY 04/16/23 04/16/23 Unknown tablet (Vitamin C) lisinopril 5 mg tablet 5 mg PO DAILY 04/16/23 04/16/23 Unknown Past Medical History Medical History (Updated 04/16/23 @ 19:27 by Sherman Powell MD) CKD (chronic kidney disease) Nonischemic cardiomyopathy HFrEF (heart failure with reduced ejection fraction) Coronary artery disease EF 30-35% Discitis of lumbar region History of COVID-19 [facility] - sore throat only December 31, 2021. On anticoagulant therapy ICD (implantable cardioverter-defibrillator) in place placed October 2021 at [facility]. Asthma HX -USES INHALERS DURING WINTER MONTHS PRN Urinary incontinence GERD (gastroesophageal reflux disease) hx-UNDER CONTROL Diabetes mellitus, type 2 NIDDM History of Mohs micrographic surgery for skin cancer SKIN Hyperlipidemia Pacemaker placed 10 yrs ago> Afib > last checked approx 12/[address] Manning, [facility] in [place] > [employer]-F/[facility] [place] - left subclavian left pacemaker in place 12/2021 at [facility] but placed a defibrillator d/t battery in the pacemaker (pt believes it does still work) BPH (benign prostatic hyperplasia) Atrial fibrillation dx 10 yrs ago> Eliquis > no cardioversions Hydronephrosis HX Exercise / Class Metabolic Activity III < 4 Walking/Shop/Light housework Past Family History Family History Sister Liver cancer Other No family history of adverse response to anesthesia Past Surgical History Surgical History Status post recent transurethral resection of prostate History of right cataract surgery 03[place] [facility] [place] right eye lamellar keratectomy Hx of left cataract extraction 12/2020 at [facility] [place]. Pt made ASA 3. 2mg versed. S/P epidural steroid injection X 5 History of prostate surgery LASER SURGERY History of tooth extraction H/O colonoscopy Social History Smoking Status: Never smoker Do You Dip or Chew Tobacco: No Hx Alcohol Use: No Hx Substance Use: No substance use type: does not use Physical Exam Vital Signs Last Vital Signs Temp 36.8 C 04/16/23 18:41 Pulse 82 04/16/23 18:41 Resp 18 04/16/23 18:41 BP 175/97 H 04/16/23 18:41 Pulse Ox 96 04/16/23 18:41 O2 Del Method Room Air 04/16/23 18:41 Testing Laboratory Results 04/16/23 15:12 04/16/23 15:12 PT 11.5 Seconds (9.0-12.0) 04/16/23 15:12 INR 1.1 (0.9-1.1) 04/16/23 15:12 APTT 30.2 Seconds (21.0-31.0) 04/16/23 15:12 Urine Color Yellow 04/16/23 17:38 Urine Appearance Turbid (Clear) A 04/16/23 17:38 Urine pH 5.0 (4.5-7.5) 04/16/23 17:38 Ur Specific [place] 1.014 (1.000-1.030) 04/16/23 17:38 Urine Protein 1+ (Negative) H 04/16/23 17:38 Urine Glucose (UA) Trace (Negative) H 04/16/23 17:38 Urine Ketones Trace (Negative) H 04/16/23 17:38 Urine Nitrite Negative (Negative) 04/16/23 17:38 Ur Leukocyte Esterase 3+ (Negative) H 04/16/23 17:38 Urine WBC (Auto) >30 /hpf (0-5) H 04/16/23 17:38 Urine RBC (Auto) 0-4 /hpf (0-4) 04/16/23 17:38 U Hyaline Cast (Auto) 0 /lpf (0-5) 04/16/23 17:38 U Epithel Cells (Auto) 20-30 /lpf (0-5) H 04/16/23 17:38 Urine Bacteria (Auto) 4+ (Negative) H 04/16/23 17:38 04/16/23 18:55 POC Glucose 201 H Electrocardiogram Date: 04/16/23 ventricular paced 83 Echocardiogram Date: 02/17/20 EF: 30-35% Valvular Disease: + no significant valvular disease
[2023-04-16] MEDS ORDERED: INSULIN ASPART PER UNIT CHARGE SC SCH (21:00)
[2023-04-16] MEDS: carvediloL 6.25 MG TAB PO SCH (21:09)
--- OUTSIDE RECORDS SUMMARY | 2023-04-16 21:27 | External Medical Summary | Summary of Care ---
Author Name Unknown Organization [facility] Address [address] [place] [address] Phone [phone] Care Team Providers Care Field Operations Manager Name Role Phone Gabrielle Gaffney MD Primary Care Provider [phone] Reason for Referral * Evaluate & Treat - Unlimited Visits (Within 10 days (routine)) - Authorized Specialty Diagnoses / Procedures Referred By Contsusan t Referred To Contact Dermatology Diagnoses History of basal cell carcinoma (BCC) Gabrielle Gaffney MD [address] [place] [address] [place] [address] Referral ID Status Reason Start Date Expiration Date Visits Requested Visits Authorized [id number] Authorized Specialty Services Required 02/22/2023 999 999 Question Answer Referral Priority Within 10 days (routine) Are you referring the patient for Mohs Surgery and have a current positive skin cancer biopsy result? No What is the reason for the patient referral? Rash/Skin Check/Eval of Lesion or Mole Comments HX of BCC and SCC Encounter Details Date Type Department Care Team Description 02/22/2023 Orders Only Access Center, [facility] [address] [facility] *DO NOT REMOVE THIS DEPARTMENT* [place] [address] Request, External Referral History of basal cell carcinoma (BCC)* Allergies No known active allergiesdocumented as of this encounter (statuses as of 02/22/2023) Medications Medication Sig Dispensed Refills Start Date End Date Status Glucose Blood In Vitro Strip TEST DAILY 100 Strip 3 05/15/2022 05/15/2023 Active OneTouch Delica Plus [id number] TEST DAILY 100 Each 11 05/15/2022 05/15/2023 Active documented as of this encounter (statuses as of 02/22/2023) Active Problems Problem Noted Date Type 2 diabetes mellitus with hemoglobin A1c goal of 7.0%-8.0% 06/02/2020 Impaired renal function disorder 021 Pure hypercholesterolemia 06/02/2020 Primary cardiomyopathy 06/02/2020 Lymphedema 06/02/2020 Chronic atrial fibrillation 06/02/2020 Hyperlipidemia 06/02/2020 Hypertension 06/02/2020 Chronic kidney disease (CKD) 06/02/2020 documented as of this encounter (statuses as of 02/22/2023) Immunizations Name Administration Dates Next Due Seasonal Influenza, Quadrivalent Hd (Fluzone Hd) 02/11/2021 documented as of this encounter Social History Tobacco Use Types Packs/Day Years Used Date Smoking Tobacco: Never Assessed Sex Assigned at Date Recorded Not on file Job Start Date Occupation Industry Not on file Not on file Not on file documented as of this encounter Plan of Treatment Upcoming Encounters Date Type Specialty Care Team Description 09/30/2023 Office Visit Dermatology Ju Morales PA-C [address] [place] [address] [place] [address] Scheduled Referrals Name Type Priority Associated Diagnoses Orde r Schedule DERMATOLOGY REFERRAL OP Referral Within 10 days (routine) History of basal cell carcinoma (BCC) Ordered: 02/22/2023 Health Maintenance Due Date Last Done Comments COVID-19 Vaccine (#1) 06/30/1941 HbA1c 12/28/1945 Pneumococcal Vaccine: 65+ Years (1 - PCV) 12/28/1945 Depression Screening 1951 Albumin/Creatinine Ratio 12/28/1957 DIABETES-EYE EXAM 12/28/1957 Diabetic Foot Exam 12/28/1957 DTaP,Tdap,and Td Vaccines (1 - Tdap) 12/28/1958 Zoster Vaccines (1 of 2) 12/28/1989 GFR 09/21/2022 09/21/2021, 02/25, 02/23/2020, Additional history exists Influenza Vaccine (FLU shot) (#1) 2023 02/11/2021, 02/18/2018, 03/04/2017 GARDASIL-HPV IMMUNIZATION SERIES Aged Out No longer eligible based on patient's age to complete this topic Hepatitis B Aged Out No longer eligi ble based on patient's age to complete this topic MENINGOCOCCAL (MENACTRA/MENVEO) Aged Out No longer eligible based on patient's age to complete this topic documented as of this encounter Medical Devices Not on filedocumented as of this encounter Visit Diagnoses Diagnosis History of basal cell carcinoma (BCC)- Primary documented in this encounter Care Teams Field Operations Manager Relationship Specialty Start Date End Date Gabrielle Gaffney MD [address] [place] [address] [place] [phone] PCP - General 12/19/09 documented as of this encounter
[2023-04-16] MEDS: ACETAMINOPHEN 325 MG TAB PO PRN (21:44)
[2023-04-16] MEDS ORDERED: Nursing to Pharmacy Communication SCH (22:30)
[2023-04-17] MEDS: INSULIN ASPART PER UNIT CHARGE SC SCH ×5 (00:27→20:54)
[2023-04-17] MEDS ORDERED: ALBUMIN 25% 25 GM/100 ML VIAL IV ONE (02:12)
[2023-04-17] MEDS ORDERED: ceFAZolin 2000MG 2,000 MG/15 ML SYR IV SCH (06:00)
[2023-04-17 06:48] LABS: Hematocrit (blood only) 38.8 % (42.0-52.0); Mean Corpuscular Hemoglobin 29.9 pg (25.0-34.0); Mean Corpuscular Hgb Conc 33.5 g/dL (32.0-36.0); Mean Corpuscular Volume 89.2 fL (80.0-100.0); Mean Platelet Volume 12.6 fL (9.4-12.4); Platelet Count 114 K/uL (130-400); RDW Coefficient of Variation 13.2 % (11.5-14.5); RDW Standard Deviation 43.4 fL (36.4-46.3); Red Blood Count 4.35 M/uL (4.70-6.10); White Blood Count 9.46 K/ul (4.8-10.8)
[2023-04-17 07:15] LABS: BUN Creatinine Ratio 21.1 (10-20); Calcium 10.2 mg/dl (8.6-10.3); Creatinine Clr Calc Pharmacy 37.8 ml/min; Est GFR (African American) 48.4 ml/min; Est GFR (Non-African American) 41.8 ml/min; Estimated Average Glucose 192 mg/dl; Hemoglobin A1C 8.3 % (4.5-5.6); Potassium 4.1 mmol/L (3.5-5.1)
--- NOTE | 2023-04-17 07:53 | XRay Report ---
XR chest 1V portable HISTORY: renal failure COMPARISON: Chest 02/11/2020. FINDINGS: No pneumothorax. No pleural effusions. The cardiac silhouette remains borderline enlarged. Right-sided pacemaker is noted. Old left-sided pacemaker wires are present. No focal lung consolidati ons to suggest a pneumonia. No evidence for pulmonary edema. Stable 3.5 cm lucent lesion within the l eft humeral head. This is likely benign given the long-term stability. IMPRESSION: No acute process. ACT 112: Negative or not required by law. Electronically signed by: Trenton Rosas M.D. 04/17/2023 7:52 AM
[2023-04-17] MEDS: carvediloL 6.25 MG TAB PO SCH ×2 (08:47→20:56)
[2023-04-17] MEDS: lisinopril 5 MG TAB PO SCH (08:47)
--- NOTE | 2023-04-17 10:21 | Hospitalist Progress Note ---
Date of Service April 17, 2023 Assessment & Plan (1) Fracture of femoral neck, left: Plan: This is an 82 y/o male with DM2, chronic HFrEf, non-ischemic cardiomyopathy, s/p ICD placement, persistent atrial fibrillation on chronic Eliquis, BPH and other history who presented to the ED after a fall with resultant left hip pain. Work- up in the ED revealed a mildly displaced left femoral neck fracture so pt was referred for admission. Ortho consulted, awaiting formal consult/plan Eliquis on hold Pain control with as needed Tylenol, morphine, oxycodone. EKG and CXR personally reviewed. CXR negative for acute cardiopulmonary findings. EKG demonstrates atrial paced rhythm. Patient denies any cardiopulmonary complaints. Considered acceptable risk to proceed with surgery. (2) Diabetes mellitus, type 2: Plan: Hgb A1c 8.3 Hold home Tradjenta, utilize NovoLog per protocol while hospitalized (3) Atrial fibrillation: Plan: Eliquis currently on hold for the OR Rate controlled on beta-noy and digoxin (4) HFrEF (heart failure with reduced ejection fraction): Plan: EF 35% Appears euvolemic, utilizes Lasix on a as needed basis Continue beta-noy and ACEi DVT PROPHYLAXIS SCDs due to planned procedure Patient seen in collaboration with Dr. Sharp. Admission and Anticipated Discharge Date Admission Date: April 16, 2023 Supervising Physician Co-Signing Physician Notes I have seen and discussed the case with the collaborating PERFORMANCE INSTRUCTOR I agree with the above H&P. I have reviewed and confirmed the patients medical history, the findings on physical examination, and the patients diagnosis and treatment plan with Love PERFORMANCE INSTRUCTOR and agree with the information documented. In short, Mr. Mcgrath is an 82 year old gentleman with multiple comorbidities who sustained a fall with hip fracture, now awaiting surgical intervention likely on 04/19. Rest of plan as above. Subjective Follow-up for left femoral neck fracture. Patient seen and examined. Scheduled for OR today. Patient states he is doing well. Reports pain is well-controlled. No numbness or tingling to the left lower extremity. Denies chest pain and shortness of breath. No lightheadedness or dizziness. Denies abdominal pain and nausea. Physical Exam Constitutional: WD/WN, vitals as above no acute distress Respiratory: normal respiratory effort, lungs clear to auscultation Cardiovascular: Rate/Rhythm: regular rate and regular rhythm Vessels: normal peripheral pulses Extremities: no edema Gastrointestinal (Abdomen): Percussion/Palpation: abdomen soft; abdomen nontender Skin: no rashes, warm and dry Neurologic: no focal motor deficits Psychiatric: A+Ox3, euthymic affect Results & Data Results & Data Vital Signs (Past 12 Hours) Vital Signs Temp Pulse Resp BP Pulse Ox O2 Del Method 04/17/23 07:27 37.2 C 82 18 145/74 H 96 Room Air Laboratory Results Short CBC 04/16/23 04/17/23 Range/Units 15:12 06:14 WBC 12.69 H 9.46 (4.8-10.8) K/ul Hgb 15.6 13.0 L (14.0-18.0) g/dl Hct 47.1 38.8 L (42.0-52.0) % Plt Count 114 L (130-400) K/uL BMP 04/16/23 04/17/23 15:12 06:14 Sodium 136 138 Potassium 4.6 4.1 Chloride 100 103 Carbon Dioxide 29 27 BUN 32 H 32 H Creatinine 1.47 H 1.52 H Glucose 289 H 185 H Calcium 11.1 H 10.2 Liver Function 04/16/23 Range/Units 15:12 Total Bilirubin 0.9 (0.2-1.0) mg/dl AST 27 (13-39) U/L ALT 22 (7-52) U/L Alkaline Phosphatase 89 (34-104) U/L Albumin 4.5 (3.4-5.0) gm/dl Urine 04/16/23 Range/Units 17:38 Urine Color Yellow Urine Appearance Turbid A (Clear) Urine pH 5.0 (4.5-7.5) Ur Specific [place] 1.014 (1.000-1.030) Urine Protein 1+ H (Negative) Urine Glucose (UA) Trace H (Negative) (1) Fracture of femoral neck, left Encounter type: initial encounter Fracture type: closed Qualified Code(s): S72.002A - Fracture of unspecified part of neck of left femur, initial encounter for closed fracture (2) Diabetes mellitus, type 2 Diabetes mellitus complication status: without complication Diabetes mellitus 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
[2023-04-17] MEDS: ACETAMINOPHEN 325 MG TAB PO PRN ×2 (12:19→21:00)
--- NOTE | 2023-04-17 17:31 | Orthopedic Consultation ---
Date of Consultation April 17, 2023 Assessment & Plan (1) Fracture of femoral neck, left: 82-year-old male with displaced left femoral neck fracture Nonweightbearing left lower extremity Bedrest Pain control DVT prophylaxis Medical management Due to patient's oral anticoagulation last taken on 04/16 would like to wait for 48 hours prior to proceeding with surgical intervention to optimize him from a medical standpoint. We will plan for left hip hemiarthroplasty on 04/19 am History of Present Illness Attending Physician: Denise Sharp MD History of Present Illness 82-year-old male presenting after sustaining a ground-level fall onto his left hip. He noted immediate pain and deformity. In the emergency department radiographs were obtained demonstrating displaced left femoral neck fracture. Patient was admitted to medical service and orthopedics was consulted for operative management. Allergies Allergy/AdvReac Type Severity Reaction Status Date / Time pseudoephedrine AdvReac Mild uti-30 YRS Verified 04/16/23 17:04 [[facility]] AGO! Home Medications Medication Instructions Recorded Confirmed Type carvedilol 6.25 mg tablet (Coreg) 6.25 mg PO BID 09/09/19 04/16/23 History linagliptin 5 mg tablet (Tradjenta) 5 mg PO QDL 09/09/19 04/16/23 History acetaminophen 500 mg tablet 1,000 mg PO QAM 02/11/20 04/16/23 History (Tylenol Extra Strength) furosemide 40 mg tablet 40 mg PO MOWEFR PRN Edema 09/07/20 04/17/23 History cholecalciferol (vitamin D3) 1,250 50,000 unit PO MONTHLY 11/30/20 04/16/23 History mcg (50,000 unit) capsule albuterol sulfate 90 mcg/actuation 2 puff inhalation DIRECTED PRN 12/29/20 04/16/23 History aerosol inhaler (Proventil HFA) Wheezing polyethylene glycol 3350 17 gram 17 g PO DAILY PRN Constipation 12/29/20 04/16/23 History oral powder packet (Miralax) apixaban 5 mg tablet (Eliquis) 5 mg PO BID 03/05/22 04/16/23 History ascorbic acid (vitamin C) 500 mg 500 mg PO DAILY 04/16/23 04/16/23 History tablet (Vitamin C) lisinopril 5 mg tablet 5 mg PO DAILY 04/16/23 04/16/23 History digoxin 250 mcg (0.25 mg) tablet 250 mcg PO DAILY 04/17/23 04/17/23 History Patient History Medical History CKD (chronic kidney disease) Nonischemic cardiomyopathy HFrEF (heart failure with reduced ejection fraction) Coronary artery disease EF 30-35% Discitis of lumbar region History of COVID-19 [facility] - sore throat only December 31, 2021. On anticoagulant therapy ICD (implantable cardioverter-defibrillator) in place placed October 2021 at [facility]. Asthma HX -USES INHALERS DURING WINTER MONTHS PRN Urinary incontinence GERD (gastroesophageal reflux disease) hx-UNDER CONTROL Diabetes mellitus, type 2 NIDDM History of Mohs micrographic surgery for skin cancer SKIN Hyperlipidemia Pacemaker placed 10 yrs ago> Afib > last checked approx 12/[address] Manning, [facility] in [place] > [employer]-F/U [facility] [place] - left subclavian left pacemaker in place 12/2021 at [facility] but placed a defibrillator d/t battery in the pacemaker (pt believes it does still work) BPH (benign prostatic hyperplasia) Atrial fibrillation dx 10 yrs ago> Eliquis > no cardioversions Hydronephrosis HX Surgical History Status post recent transurethral resection of prostate History of right cataract surgery 03/12/22 [facility] [place] H/O eye surgery right eye lamellar keratectomy Hx of left cataract extraction 12/[address] [facility] [place]. Pt made ASA 3. 2mg versed. S/P epidural steroid injection X 5 History of prostate surgery LASER SURGERY History of tooth extraction H/O colonoscopy Family History Sister Liver cancer Other No family history of adverse response to anesthesia Social History Smoking Status: Never smoker Tobacco Type: Cigarettes Second Hand Exposure: No; Do You Dip or Chew Tobacco: No; Tobacco Cessation Education Requested by Patient: No Hx Alcohol Use: No Hx Substance Use: No Preferred Language: Faroese Communication Ability: Effective Vegetable Loader Required: No Beliefs That Will Affect Care: None marital status: Single Current Living Situation: Alone current occupational status: retired How many Children do You have: 0 Other Information That Helps Us Care for You: No Feels Safe at Home: Yes Safety Concerns: Feels Safe At This Time Assistive Devices: Walker Physical Exam Constitutional: No acute distress, alert and oriented person place and time Musculoskeletal: Left lower extremity -Shortened and externally Rotated, posit tesfaye logroll - SILT s/spn/dpn/t/s - fires ta/ehl/gsc + dp/pt Results & Data Vital Signs (Past 12 Hours) Vital Signs Temp Pulse Resp BP Pulse Ox Pulse Ox O2 Del Method 04/17/23 15:04 95 04/17/23 15:03 36.4 C L 84 15 163/81 H 95 Room Air 04/17/23 10:20 93 04/17/23 10:18 36.6 C 82 16 139/72 93 Room Air 04/17/23 07:27 37.2 C 82 18 145/74 H 96 Room Air O2 Del Method 04/17/23 15:04 Room Air 04/17/23 15:03 04/17/23 10:20 Room Air 04/17/23 10:18 04/17/23 07:27 Diagnostic Findings Left hip radiographs demonstrate displaced left femoral neck fracture (1) Fracture of femoral neck, left Encounter type: initial encounter Fracture type: closed Qualified Code(s): S72.002A - Fracture of unspecified part of neck of left femur, initial encounter for closed fracture
[2023-04-17] MEDS ORDERED: Nursing to Pharmacy Communication SCH (19:30)
--- NOTE | 2023-04-18 07:01 | Electrocardiogram Report ---
Test Reason : Blood Pressure : / mmHG Vent. Rate : 083 BPM Atrial Rate : 083 BPM P-R Int : 172 ms QRS Dur : 146 ms QT Int : 424 ms P-R-T Axes : 075 254 074 degrees QTc Int : 498 ms Atrial-sensed ventricular-paced rhythm Biventricular pacemaker detected Abnormal ECG When compared with ECG of 16-FEB-2020 10:38, Vent. rate has increased BY 20 BPM Confirmed by Burak Salas ([id number]) on 04/18/2023 7:01:28 AM Referred By: REFERRED SELF Confirmed By:Burak Salas
--- NOTE | 2023-04-18 07:12 | Hospitalist Progress Note ---
Date of Service April 18, 2023 Assessment & Plan (1) Fracture of femoral neck, left: (2) Diabetes mellitus, type 2: (3) Atrial fibrillation: (4) HFrEF (heart failure with reduced ejection fraction): Plan Mr. Mcgrath is an 82 year old gentleman with DM2, chronic HFrEf, non-ischemic cardiomyopathy, s/p ICD placement, persistent atrial fibrillation on chronic Eliquis, BPH and other history who presented to the ED after a fall with resultant left hip pain on 04/16. Work-up in the ED revealed a mildly displaced left femoral neck fracture so pt was referred for admission. Patient is scheduled for left hip arthroplasty, however, it is scheduled for OR 04/19 given DOAC useage. #Acute normocytic anemia 2/2 traumatic injury/fracture -Stable at 13.6 -Montior CBC for post-operative anemia, transfuse <7.0 or symptomatic #Fracture left femoral neck Ortho consulted, awaiting formal consult/plan Eliquis on hold Pain control with as needed Tylenol, morphine, oxycodone. RCRI is 1 point, Class II risk 2/2 chronic HFrEF; add on BNP, montior perioopertiave volume status -NPO midnight #DMTII Hgb A1c 8.3 Hold home Tradjenta, utilize NovoLog per protocol while hospitalized #Atrial Fibrillation Eliquis currently on hold for the OR Rate controlled on beta-noy and digoxin #Chronic HFrEF EF 35% Appears euvolemic, utilizes Lasix on a as needed basis Continue beta-noy and ACEi perioperatively, DVT PROPHYLAXIS SCDs due to planned procedure Admission and Anticipated Discharge Date Admission Date: April 16, 2023 Subjective NAEO Reports doing well and states pain is much controlled Denies any acute concerns and eager for procedure in am to start "recovery" Review of Systems Review of Systems: All systems reviewed & are unremarkable except as noted in Subjective Physical Exam Constitutional: WD/WN, vitals as above Respiratory: normal respiratory effort, lungs clear to auscultation Cardiovascular: RRR, no murmur, no edema Results & Data Results & Data Vital Signs (Past 12 Hours) Vital Signs Temp Pulse Resp BP Pulse Ox O2 Del Method 04/17/23 20:54 36.6 C 70 16 162/77 H 96 Room Air Laboratory Results Short CBC 04/18/23 Range/Units 06:41 WBC 9.38 (4.8-10.8) K/ul Hgb 13.6 L (14.0-18.0) g/dl Hct 41.2 L (42.0-52.0) % Plt Count 105 L (130-400) K/uL BMP 04/18/23 06:41 Sodium 140 Potassium 4.2 Chloride 105 Carbon Dioxide 25 BUN 32 H Creatinine 1.25 Glucose 195 H Calcium 10.4 H Medications Administered Home Medications Medication Instructions Recorded Confirmed Last Taken carvedilol 6.25 mg tablet (Coreg) 6.25 mg PO BID 09/09/19 04/16/23 04/15/23 linagliptin 5 mg tablet (Tradjenta) 5 mg PO QDL 09/09/19 04/16/23 04/15/23 acetaminophen 500 mg tablet 1,000 mg PO QAM 02/11/20 04/16/23 04/16/23 (Tylenol Extra Strength) furosemide 40 mg tablet 40 mg PO MOWEFR PRN Edema 09/07/20 04/17/23 04/14/23 cholecalciferol (vitamin D3) 1,250 50,000 unit PO MONTHLY 11/30/20 04/16/23 04/08/22 mcg (50,000 unit) capsule albuterol sulfate 90 mcg/actuation 2 puff inhalation DIRECTED PRN 12/29/20 04/16/23 04/08/22 aerosol inhaler (Proventil HFA) Wheezing polyethylene glycol 3350 17 gram 17 g PO DAILY PRN Constipation 12/29/20 04/16/23 04/08/22 oral powder packet (Miralax) apixaban 5 mg tablet (Eliquis) 5 mg PO BID 03/05/22 04/16/23 04/15/23 ascorbic acid (vitamin C) 500 mg 500 mg PO DAILY 04/16/23 04/16/23 Unknown tablet (Vitamin C) lisinopril 5 mg tablet 5 mg PO DAILY 04/16/23 04/16/23 Unknown digoxin 250 mcg (0.25 mg) tablet 250 mcg PO DAILY 04/17/23 04/17/23 Unknown Active Medications Generic Name Dose Route Start Last Admin Trade Name Freq PRN Reason Stop Dose Admin Acetaminophen 650 mg 04/16/23 18:38 04/17/23 21:00 Acetaminophen 325 Mg Tab PO 05/16/23 18:37 650 mg Q4H PRN Administration Pain or Fever Carvedilol 6.25 mg 04/16/23 21:00 04/17/23 20:56 Carvedilol 6.25 Mg Tab PO 05/16/23 20:59 6.25 mg BID MICAH Administration Insulin Aspart 0 units 04/17/23 21:00 04/17/23 20:54 Insulin Aspart Per Unit Charge SC 05/17/23 20:59 2 units ACHS MICAH Administration Lisinopril 5 mg 04/17/23 09:00 04/17/23 08:47 Lisinopril 5 Mg Tab PO 05/17/23 08:59 5 mg DAILY MICAH Administration (1) Fracture of femoral neck, left Encounter type: initial encounter Fracture type: closed Qualified Code(s): S72.002A - Fracture of unspecified part of neck of left femur, initial encounter for closed fracture (2) Diabetes mellitus, type 2 Diabetes mellitus complication status: without complication 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
[2023-04-18 07:14] LABS: Hematocrit (blood only) 41.2 % (42.0-52.0); Hemoglobin 13.6 g/dl (14.0-18.0); Mean Corpuscular Hemoglobin 30.2 pg (25.0-34.0); Mean Corpuscular Volume 91.4 fL (80.0-100.0); Mean Platelet Volume 12.3 fL (9.4-12.4); Platelet Count 105 K/uL (130-400); RDW Coefficient of Variation 13.2 % (11.5-14.5); RDW Standard Deviation 44.5 fL (36.4-46.3); Red Blood Count 4.51 M/uL (4.70-6.10); White Blood Count 9.38 K/ul (4.8-10.8)
[2023-04-18] MEDS: ACETAMINOPHEN 325 MG TAB PO PRN ×2 (07:21→20:10)
[2023-04-18 07:35] LABS: BUN Creatinine Ratio 25.6 (10-20); Calcium 10.4 mg/dl (8.6-10.3); Creatinine Clr Calc Pharmacy 45.9 ml/min; Est GFR (African American) 61.3 ml/min; Est GFR (Non-African American) 52.9 ml/min; Potassium 4.2 mmol/L (3.5-5.1)
--- NOTE | 2023-04-18 08:30 | Orthopedic Progress Note ---
Date of Service April 18, 2023 Assessment & Plan (1) Fracture of femoral neck, left: Plan: 82-year-old male with displaced left femoral neck fracture Nonweightbearing left lower extremity Bedrest Pain control DVT prophylaxis Medical management Patient scheduled tomorrow for a left hip hemiarthroplasty. Will follow with the patient postoperatively. He would like to consider going home with home health postoperatively. We also discussed possible rehabilitation versus [facility]pc facility depending on how well he is progressing. Admission and Anticipated Discharge Date Admission Date: April 16, 2023 Subjective Patient states he is doing well today. Pain is controlled in the left hip. No new complaints today. He is looking forward to tomorrow's surgery so he can be up moving. Physical Exam Constitutional: WD/WN, vitals as above Musculoskeletal: Hip: + deformity (externally rotated left hip) and + limited ROM of hip; no skin erythema Psychiatric: A+Ox3, euthymic affect Speech: normal rate/rhythm/volume of speech Results & Data Vital Signs (Past 12 Hours) Vital Signs Temp Pulse Resp BP Pulse Ox O2 Del Method 04/18/23 08:13 36.6 C 75 17 156/69 H 96 Room Air 04/17/23 20:54 36.6 C 70 16 162/77 H 96 Room Air (1) Fracture of femoral neck, left Encounter type: initial encounter Fracture type: closed Qualified Code(s): S72.002A - Fracture of unspecified part of neck of left femur, initial encounter for closed fracture
[2023-04-18] MEDS: INSULIN ASPART PER UNIT CHARGE SC SCH ×4 (09:02→21:29)
[2023-04-18] MEDS: carvediloL 6.25 MG TAB PO SCH ×2 (09:03→20:15)
[2023-04-18] MEDS: lisinopril 5 MG TAB PO SCH (09:03)
[2023-04-18] MEDS: DIGOXIN 0.25 MG TAB PO SCH (09:03)
[2023-04-18] MEDS ORDERED: Nursing to Pharmacy Communication SCH (23:45)
[2023-04-19] MEDS: INSULIN ASPART PER UNIT CHARGE SC SCH ×6 (00:15→21:00)
[2023-04-19] MEDS: ACETAMINOPHEN 325 MG TAB PO PRN ×2 (05:40→13:08)
--- NOTE | 2023-04-19 07:26 | Hospitalist Progress Note ---
Date of Service April 19, 2023 Assessment & Plan (1) Fracture of femoral neck, left: (2) Diabetes mellitus, type 2: (3) Atrial fibrillation: (4) HFrEF (heart failure with reduced ejection fraction): Plan Mr. Mcgrath is an 82 year old gentleman with DM2, chronic HFrEf, non-ischemic cardiomyopathy, s/p ICD placement, persistent atrial fibrillation on chronic Eliquis, BPH and other history who presented to the ED after a fall with resultant left hip pain on 04/16. Work-up in the ED revealed a mildly displaced left femoral neck fracture so pt was referred for admission. Patient is scheduled for left hip arthroplasty, however, it is scheduled for OR 04/19 given DOAC useage. #Acute normocytic anemia 2/2 traumatic injury/fracture -Stable at 13.6 -Montior CBC for post-operative anemia, transfuse <7.0 or symptomatic #Fracture left femoral neck Ortho consulted, awaiting formal consult/plan Eliquis on hold Pain control with as scheduled tylenol and prn morphine, oxycodone. RCRI is 1 point, Class II risk 2/2 chronic HFrEF; BNP 105, montior perioopertiave volume status POD 0 left hemiarthoplasty #DMTII Hgb A1c 8.3 Hold home Tradjenta, utilize NovoLog per protocol while hospitalized #Atrial Fibrillation Eliquis currently on hold for the OR Rate controlled on beta-noy and digoxin #Chronic HFrEF EF 35% Appears euvolemic, utilizes Lasix on a as needed basis Continue beta-noy and ACEi perioperatively, DVT PROPHYLAXIS SCDs due to planned procedure Admission and Anticipated Discharge Date Admission Date: April 16, 2023 Subjective NAEO Evaluated after procedure and doing very well--eating sitting upright Endorses adequate pain control at this time Review of Systems Review of Systems: All systems reviewed & are unremarkable except as noted in Subjective Physical Exam Constitutional: WD/WN, vitals as above Respiratory: normal respiratory effort, lungs clear to auscultation Cardiovascular: RRR, no murmur, no edema (Chronic RLE at baseline 2/2 lymphedema) Results & Data Results & Data Vital Signs (Past 12 Hours) Vital Signs Temp Pulse Resp BP Pulse Ox O2 Del Method 04/19/23 07:18 36.8 C 72 16 132/72 97 Room Air 04/18/23 20:15 Room Air 04/18/23 20:12 36.7 C 84 16 154/80 H 94 Room Air Laboratory Results [facility] 04/18/23 06:41 Sodium 140 Potassium 4.2 Chloride 105 Carbon Dioxide 25 BUN 32 H Creatinine 1.25 Glucose 195 H Calcium 10.4 H Medications Administered Home Medications Medication Instructions Recorded Confirmed Last Taken carvedilol 6.25 mg tablet (Coreg) 6.25 mg PO BID 09/09/19 04/16/23 04/15/23 linagliptin 5 mg tablet (Tradjenta) 5 mg PO QDL 09/09/19 04/16/23 04/15/23 acetaminophen 500 mg tablet 1,000 mg PO QAM 02/11/20 04/16/23 04/16/23 (Tylenol Extra Strength) furosemide 40 mg tablet 40 mg PO MOWEFR PRN Edema 09/07/20 04/17/23 04/14/23 cholecalciferol (vitamin D3) 1,250 50,000 unit PO MONTHLY 11/30/20 04/16/23 04/08/22 mcg (50,000 unit) capsule albuterol sulfate 90 mcg/actuation 2 puff inhalation DIRECTED PRN 12/29/20 04/16/23 04/08/22 aerosol inhaler (Proventil HFA) Wheezing polyethylene glycol 3350 17 gram 17 g PO DAILY PRN Constipation 12/29/20 04/16/23 04/08/22 oral powder packet (Miralax) apixaban 5 mg tablet (Eliquis) 5 mg PO BID 03/05/22 04/16/23 04/15/23 ascorbic acid (vitamin C) 500 mg 500 mg PO DAILY 04/16/23 04/16/23 Unknown tablet (Vitamin C) lisinopril 5 mg tablet 5 mg PO DAILY 04/16/23 04/16/23 Unknown digoxin 250 mcg (0.25 mg) tablet 250 mcg PO DAILY 04/17/23 04/17/23 Unknown Active Medications Generic Name Dose Route Start Last Admin Trade Name Freq PRN Reason Stop Dose Admin Acetaminophen 650 mg 04/16/23 18:38 04/19/23 05:40 Acetaminophen 325 Mg Tab PO 05/16/23 18:37 650 mg Q4H PRN Administration Pain or Fever Carvedilol 6.25 mg 04/16/23 21:00 04/18/23 20:15 Carvedilol 6.25 Mg Tab PO 05/16/23 20:59 6.25 mg BID MICAH Administration Digoxin 0.25 mg 04/18/23 09:00 04/18/23 09:03 Digoxin 0.25 Mg Tab PO 05/18/23 08:59 0.25 mg DAILY@1600 MICAH Administration Insulin Aspart 0 units 04/19/23 00:00 04/19/23 05:39 Insulin Aspart Per Unit Charge SC 05/19/23 00:00 1 units Q6 MICAH Administration Lisinopril 5 mg 04/17/23 09:00 04/18/23 09:03 Lisinopril 5 Mg Tab PO 05/17/23 08:59 5 mg DAILY MICAH Administration (1) Fracture of femoral neck, left Encounter type: initial encounter Fracture type: closed Qualified Code(s): S72.002A - Fracture of unspecified part of neck of left femur, initial encounter for closed fracture (2) Diabetes mellitus, type 2 Diabetes mellitus complication status: without complication Diabetes mellitus joint terminal 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
[2023-04-19] MEDS: LACTATED RINGER'S 1,000 ML IV SCH ×2 (08:40→12:59)
[2023-04-19] MEDS ORDERED: LIDOCAINE 2% 2 ML VIAL/AMP(20MG/ML) INFIL ONE (09:00)
[2023-04-19] MEDS ORDERED: ONDANSETRON INJ 2 MG/ML 2 ML VIAL ONE (09:00)
[2023-04-19] MEDS ORDERED: GLYCOPYRROLATE 0.2 MG/ML VIAL ONE (09:00)
[2023-04-19] MEDS ORDERED: NEOSTIGMINE METHYLSULFATE 1 MG/ML 10ML VIAL ONE (09:00)
[2023-04-19] MEDS ORDERED: DEXAMETHASONE SOD INJ 4 MG/ML VIAL ONE (09:00)
[2023-04-19] MEDS ORDERED: ROCURONIUM BROMIDE 10 MG/ML 5 ML VIAL IV ONE (09:01)
[2023-04-19] MEDS ORDERED: PROPOFOL IV EMULSION 10 MG/ML 20 ML VIAL IV ONE (09:01)
[2023-04-19] MEDS ORDERED: MIDAZOLAM HCL 1 MG/ML 2ML VIAL ONE ×2 (09:01→11:19)
[2023-04-19] MEDS ORDERED: fentaNYL citrate PF 100 MCG/2 ML VIAL ONE (09:01)
[2023-04-19] MEDS ORDERED: ceFAZolin 2,000 MG/15 ML IV PUSH IV ONE (10:01)
[2023-04-19] MEDS ORDERED: FLUMAZENIL 0.1 MG/1 ML 10 ML VIAL IV PRN (10:01)
[2023-04-19] MEDS ORDERED: HYDROmorphone INJ 1 MG/ML SYRINGE IV PRN (10:01)
[2023-04-19] MEDS ORDERED: PROMETHAZINE HCL 12.5 MG in SODIUM CHLORIDE 0.9% 50 ML IV PRN (10:01)
[2023-04-19] MEDS ORDERED: ceFAZolin 2000MG 2,000 MG/15 ML SYR IV ONE (10:01)
[2023-04-19] MEDS ORDERED: ePHEDrine sulfate 50 MG/ML AMP IV PRN (10:01)
[2023-04-19] MEDS ORDERED: NALOXONE HCL 0.4 MG/1 ML VIAL/CARP IV PRN (10:01)
[2023-04-19] MEDS ORDERED: ONDANSETRON INJ 2 MG/ML 2 ML VIAL IV PRN (10:01)
[2023-04-19] MEDS ORDERED: ATROPINE SULFATE 0.1 MG/ML 10ML SYR IV PRN (10:01)
[2023-04-19] MEDS ORDERED: fentaNYL citrate PF 100 MCG/2 ML VIAL IV PRN (10:01)
--- NOTE | 2023-04-19 10:05 | History & Physical Bridge Note ---
Date of Service April 19, 2023 History & Physical Bridge Note I have examined the patient, reviewed the History & Physical and in the interval since the performance of the History & Physical I have noted the following changes of clinical significance: no changes noted. Met w/ patient had a discussion regarding left hip hemiarthroplasty. Risks include: neurovascular injury, dvt, fracture, dislocation, leg lenght, and future surgery. After reviewing he elected to proceed and written consent was obtained
[2023-04-19] MEDS ORDERED: BUPIVACAINE/EPINEPHRINE 0.25% 1:200,000 30 ML VIAL ONE (10:34)
--- NOTE | 2023-04-19 11:39 | Post Operative Brief Note ---
Immediate Post Op Note v1 Date of Surgery April 19, 2023 Pre & Post Diagnosis Operation Date: 04/19/23 09:20 Pre-Op Diagnosis: Left hip fracture Post-Op Diagnosis: Left hip fracture I identified the patient and participated in the time-out.: Yes Procedure Operation Date: 04/19/23 09:20 Actual Procedures p Left Hip Hemiarthroplasty(Left) - Alberto Platt DO Surgeon Alberto Platt DO Basket Sorter none Estimated Blood Loss 75 Findings Consistent with Post-Op Diagnosis see dictation Drains Hernández Catheter and Hemovac Drain Complications none
[2023-04-19] MEDS ORDERED: SODIUM CHLORIDE 0.9% 1,000 ML IV SCH (11:45)
--- NOTE | 2023-04-19 11:45 | Operative Report ---
Post Operative Report Pre & Post Diagnosis Operation Date: 04/19/23 09:20 Pre-Op Diagnosis: Left hip fracture Post-Op Diagnosis: Left hip fracture I identified the patient and participated in the time-out.: Yes Procedure Operation Date: 04/19/23 09:20 Actual Procedures p Left Hip Hemiarthroplasty(Left) - Alberto Platt DO Surgeon Alberto Platt DO Comber Tender none Estimated Blood Loss 75 Findings Consistent with Post-Op Diagnosis see dictation Specimens femoral head Complications none Indications 82-year-old male presenting after sustaining ground-level fall onto his left hip. In the emergency department radiographs were obtained demonstrating a displaced left femoral neck fracture. Patient was admitted to medical service and orthopedics was consulted for operative management. I do lengthy discussion with the patient regarding risk benefits potential complications of left hip hemiarthroplasty. After reviewing these he elected proceed with surgical intervention and right consent was obtained Description of Procedure Implants: Biomet Echo bipolar stem size #12 standard, 56 mm outer diameter bipolar head, 28 mm +6 mm inner diameter head Procedure: Patient was appropriate marked and identified in the preoperative holding area. He received antibiotics per protocol. He was then taken back to the operative suite where he received general anesthesia. He was positioned in the lateral decubitus position with the left hip facing upwards using Stulberg hip positioners. He was then prepped and draped in standard orthopedic fashion a timeout was then performed. Posterior lateral incision overlying the trochanter was then made with a scalpel. Electrocautery was used to dissect through subcutaneous tissue down to the IT band and gluteal fascia which was then split in line with the incision. Charnley retractor was then placed. Short external rotators were then identified and tagged and reflected off the posterior capsule. T capsulotomy was then performed and a gush of fracture hematoma was noted. It was then internally rotated limb and the residual femoral head in the acetabulum. A femoral neck osteotomy was then made with a saw approximately 1 cm above the tip of the lesser trochanter. Residual bone fragments were then removed and a corkscrew was used to remove the femoral head. Femoral head was then sized and a 56 mm trial was noted to have excellent suction fit. Attention was then turned to preparation of the femoral canal. Starting with a box osteotome followed by a lateralizing reamer the canal was then sequentially broached up to a size 12 stem which was noted to have excellent fit and fill. Calcar planer was then used. Trialing was then performed and a 56 mm +6 mm bipolar head was noted to have the best combination of stability in flexion extension with internal and external rotation as well as reproducibility of leg lengths. The hip was then successfully dislocated and all trial components were then removed. Dilute Betadine solution was used to copiously irrigate the hip followed by normal saline solution. A size #12 stem was then impacted into the femoral canal under visualization of the calcar. A 56 mm outside diameter head with 28 mm inside diameter +6 head was then impacted onto the trunnion. The hip was then successfully relocated. Once again range of motion and stability were assessed and noted to be satisfactory. It was then copiously irrigated and capsulotomy was closed in a [id number] fashion using 1-0 Ethibond suture. Charnley retractor was then removed and the IT band gluteal fascia was closed in a [id number] fashion using 1-0 Ethibond followed by running 0-strata fix suture. Local anesthetic was then injected. Subcutaneous tissues were then closed using running 2-0 strata fix suture. Mignon were used to close the skin. A sterile Silverlon dressing was placed. The patient tolerated the procedure well was taken to recovery room in hemodynamically stable condition I attest to the content of the Intraoperative Record and any orders documented therein. Any exceptions are noted below.
--- NOTE | 2023-04-19 12:22 | XRay Report ---
SINGLE VIEW PELVIS CLINICAL HISTORY: Postoperative examination. FINDINGS: AP, portable, supine view of the abdomen and pelvis is compared to study dated 04/16/2023. The skeletal structures are osteopenic. A left hip arthroplasty is in near anatomic alignment. No acu te fracture is seen. Moderate arthritic change and joint space narrowing is seen involving the right hip. There is degenerative sclerosis of the sacroiliac joints and pubic symphysis. Soft tissue edema, subcutaneous gas, and skin clips overlying the left hip are expected postsurgical changes. A Hernández c atheter is in place. IMPRESSION: Expected postoperative findings status post left arthroplasty. No acute fracture is seen. Electronically signed by: Grabiel Ivory M.D. 04/19/2023 12:20 PM
[2023-04-19] MEDS ORDERED: hydrALAZINE HCL 20 MG/ML VIAL ONE (12:23)
[2023-04-19] MEDS ORDERED: hydrALAZINE HCL 20 MG/ML VIAL IV STA (12:25)
[2023-04-19] MEDS ORDERED: lisinopril 5 MG TAB PO ONE (12:44)
--- NOTE | 2023-04-19 12:46 | Anesthesiology Progress Note ---
Date of Service April 19, 2023 Anesthesia Post Procedure Vital Signs Vital Signs: Temp Pulse Pulse Resp BP Pulse Ox O2 Del Method 04/19/23 12:35 63 15 173/77 H 99 Room Air 04/19/23 12:25 60 14 169/84 H 99 Room Air 04/19/23 12:15 60 17 180/88 H 98 Room Air 04/19/23 12:05 65 19 152/84 H 94 Room Air 04/19/23 11:59 36.7 C 64 14 140/94 91 Room Air 04/19/23 08:33 36.7 C 75 18 135/86 99 Room Air 04/19/23 07:18 36.8 C 72 16 132/72 97 Room Air 04/18/23 20:15 Room Air 04/18/23 20:12 36.7 C 84 16 154/80 H 94 Room Air Pain Intensity Left Hip: Pain Intensity: 2 Transfer of Care Handoff Completed per policy Notes Mental Status: alert / awake / arousable Patient Amnestic to Procedure: Yes Nausea / Vomiting: adequately controlled Pain: adequately controlled Airway Patency, RR, SpO2: stable & adequate BP & HR: stable & adequate Hydration State: stable & adequate Anesthetic Complications: no major complications apparent
[2023-04-19] MEDS ORDERED: Nursing to Pharmacy Communication SCH (13:00)
[2023-04-19] MEDS: carvediloL 6.25 MG TAB PO SCH ×2 (13:05→21:01)
[2023-04-19] MEDS: lisinopril 5 MG TAB PO SCH (13:05)
[2023-04-19] MEDS: DIGOXIN 0.25 MG TAB PO SCH (15:58)
[2023-04-19] MEDS: ACETAMINOPHEN 325 MG TAB PO SCH ×2 (17:23→21:01)
[2023-04-19] MEDS: ceFAZolin 2000MG 2,000 MG/15 ML SYR IV SCH (17:23)
[2023-04-20] MEDS: ceFAZolin 2000MG 2,000 MG/15 ML SYR IV SCH (00:56)
[2023-04-20] MEDS: ACETAMINOPHEN 325 MG TAB PO SCH ×6 (00:56→21:16)
[2023-04-20 05:53] LABS: Basophils # (auto) 0.06 K/uL (0.00-0.20); Basophils % (auto) 0.6 %; Hematocrit (blood only) 39.6 % (42.0-52.0); Hemoglobin 12.8 g/dl (14.0-18.0); Immature Granulocytes # (auto) 0.08 K/uL (0.01-0.20); Immature Granulocytes % (auto) 0.8 %; Lymphocytes # (auto) 0.59 K/uL (1.20-3.40); Lymphocytes % (auto) 5.8 %; Mean Corpuscular Hemoglobin 29.8 pg (25.0-34.0); Mean Corpuscular Hgb Conc 32.3 g/dL (32.0-36.0); Mean Corpuscular Volume 92.3 fL (80.0-100.0); Mean Platelet Volume 12.2 fL (9.4-12.4); Monocytes # (auto) 1.01 K/uL (0.11-0.59); Neutrophils # (auto) 8.17 K/uL (1.40-6.50); Neutrophils % (auto) 80.8 %; Platelet Count 118 K/uL (130-400); RDW Coefficient of Variation 13.2 % (11.5-14.5); RDW Standard Deviation 45.1 fL (36.4-46.3); Red Blood Count 4.29 M/uL (4.70-6.10); White Blood Count 10.11 K/ul (4.8-10.8)
[2023-04-20 06:06] LABS: BUN Creatinine Ratio 24.5 (10-20); Est GFR (African American) 48.8 ml/min; Est GFR (Non-African American) 42.1 ml/min; Magnesium 1.6 mg/dl (1.7-2.4); Phosphorus 3.4 mg/dl (2.5-4.9); Potassium 4.9 mmol/L (3.5-5.1)
--- NOTE | 2023-04-20 06:58 | Hospitalist Progress Note ---
Date of Service April 20, 2023 Assessment & Plan (1) Fracture of femoral neck, left: (2) Diabetes mellitus, type 2: (3) Atrial fibrillation: (4) HFrEF (heart failure with reduced ejection fraction): Plan Mr. Mcgrath is an 82 year old gentleman with DM2, chronic HFrEf, non-ischemic cardiomyopathy, s/p ICD placement, persistent atrial fibrillation on chronic Eliquis, BPH and other history who presented to the ED after a fall with resultant left hip pain on 04/16. Work-up in the ED revealed a mildly displaced left femoral neck fracture so pt was referred for admission. Patient is scheduled for left hip arthroplasty, however, it is scheduled for OR 04/19 given DOAC useage. Patient recovering well postoperatively. #Acute normocytic anemia 2/2 traumatic injury/ *stable fracture -Stable at 13.6, now to 12.8 -Montior CBC for post-operative anemia, transfuse <7.0 or symptomatic #Fracture left femoral neck Ortho consulted, awaiting formal consult/plan Pain control with as scheduled tylenol and prn morphine, oxycodone. RCRI is 1 point, Class II risk 2/2 chronic HFrEF; BNP 105, monitor perioperative volume status POD 1 left hemiarthoplasty Clear to resume Eliquis Start VitD-Ca supplementation #DMTII Hgb A1c 8.3 Hold home Tradjenta, utilize NovoLog per protocol while hospitalized #Atrial Fibrillation Eliquis currently on hold for the OR Rate controlled on beta-noy and digoxin -Hold coreg 2/2 hypotension; continue digoxin -Resume elquis #Relative hypotension #Chronic HFrEF EF 35% Appears euvolemic, utilizes Lasix on a as needed basis Hold coreg and ACEi this pm and possibly am, resume as able DVT PROPHYLAXIS Resume home eliquis Referrals for inpatient rehab to be placed Admission and Anticipated Discharge Date Admission Date: April 16, 2023 Subjective Reports pain being well controlled Motivated and conversational, sitting in bedside chair. PT not yet working with patient at time of exam, but eager to move Review of Systems Review of Systems: All systems reviewed & are unremarkable except as noted in Subjective Physical Exam Constitutional: WD/WN, vitals as above Respiratory: normal respiratory effort, lungs clear to auscultation Cardiovascular: RRR, no murmur, no edema Musculoskeletal: right lower extremity edema>left, stable (if not improved from baseline per patient) Results & Data Results & Data Vital Signs (Past 12 Hours) Vital Signs Temp Pulse Resp BP Pulse Ox O2 Del Method 04/20/23 03:15 36.5 C 70 18 123/72 97 Room Air 04/19/23 23:45 36.6 C 78 18 103/62 96 Room Air 04/19/23 21:00 Room Air 04/19/23 19:58 37 C 92 H 18 132/68 97 Room Air Laboratory Results Short CBC 04/20/23 Range/Units 05:25 WBC 10.11 (4.8-10.8) K/ul Hgb 12.8 L (14.0-18.0) g/dl Hct 39.6 L (42.0-52.0) % Plt Count 118 L (130-400) K/uL BMP 04/20/23 05:25 Sodium 139 Potassium 4.9 Chloride 105 Carbon Dioxide 28 BUN 37 H Creatinine 1.51 H Glucose 241 H Calcium 10.0 Medications Administered Home Medications Medication Instructions Recorded Confirmed Last Taken carvedilol 6.25 mg tablet (Coreg) 6.25 mg PO BID 09/09/19 04/16/23 04/15/23 linagliptin 5 mg tablet (Tradjenta) 5 mg PO QDL 09/09/19 04/16/23 04/15/23 acetaminophen 500 mg tablet 1,000 mg PO QAM 02/11/20 04/16/23 04/16/23 (Tylenol Extra Strength) furosemide 40 mg tablet 40 mg PO MOWEFR PRN Edema 09/07/20 04/17/23 04/14/23 cholecalciferol (vitamin D3) 1,250 50,000 unit PO MONTHLY 11/30/20 04/16/23 04/08/22 mcg (50,000 unit) capsule albuterol sulfate 90 mcg/actuation 2 puff inhalation DIRECTED PRN 12/29/20 04/16/23 04/08/22 aerosol inhaler (Proventil HFA) Wheezing polyethylene glycol 3350 17 gram 17 g PO DAILY PRN Constipation 12/29/20 04/16/23 04/08/22 oral powder packet (Miralax) apixaban 5 mg tablet (Eliquis) 5 mg PO BID 03/05/22 04/16/23 04/15/23 ascorbic acid (vitamin C) 500 mg 500 mg PO DAILY 04/16/23 04/16/23 Unknown tablet (Vitamin C) lisinopril 5 mg tablet 5 mg PO DAILY 04/16/23 04/16/23 Unknown digoxin 250 mcg (0.25 mg) tablet 250 mcg PO DAILY 04/17/23 04/17/23 Unknown Active Medications Generic Name Dose Route Start Last Admin Trade Name Freq PRN Reason Stop Dose Admin Acetaminophen 650 mg 04/19/23 17:00 04/20/23 13:15 Acetaminophen 325 Mg Tab PO 05/19/23 16:59 650 mg Q4H MICAH Administration Carvedilol 6.25 mg 04/16/23 21:00 04/20/23 08:36 Carvedilol 6.25 Mg Tab PO 05/16/23 20:59 6.25 mg BID MICAH Administration Digoxin 0.25 mg 04/18/23 09:00 04/19/23 15:58 Digoxin 0.25 Mg Tab PO 05/18/23 08:59 0.25 mg DAILY@1600 MICAH Administration Lactated Ringer's 1,000 mls @ 15 mls/hr 04/19/23 08:45 04/20/23 08:32 Lr IV 05/19/23 08:44 Not Given .Q24H MICAH KVO Insulin Aspart 0 units 04/19/23 13:05 04/20/23 13:14 Insulin Aspart Per Unit Charge SC 05/19/23 00:00 10 units ACHS MICAH Administration Lisinopril 5 mg 04/17/23 09:00 04/20/23 08:36 Lisinopril 5 Mg Tab PO 05/17/23 08:59 5 mg DAILY MICAH Administration Oxycodone HCl 10 mg 04/16/23 18:38 04/20/23 09:11 Oxycodone Hcl Ir 5 Mg Tab (Immediate Release) PO 04/30/23 18:37 10 mg Q4H PRN Administration SEVERE Pain (7,8,9,10) (1) Fracture of femoral neck, left Encounter type: initial encounter Fracture type: closed Qualified Code(s): S72.002A - Fracture of unspecified part of neck of left femur, initial encounter for closed fracture (2) Diabetes mellitus, type 2 Diabetes mellitus complication status: without complication Diabetes mellitus intermediate insulin use: without auto specialty services manager use Qualified Code(s): E11.9 - Type 2 diabetes mellitus without complications (3) Atrial fibrillation Atrial fibrillation type: persistent (not longstanding) Qualified Code(s): I48.19 - Other persistent atrial fibrillation
[2023-04-20] MEDS: LACTATED RINGER'S 1,000 ML IV SCH (08:32)
[2023-04-20] MEDS: carvediloL 6.25 MG TAB PO SCH (08:36)
[2023-04-20] MEDS: lisinopril 5 MG TAB PO SCH (08:36)
[2023-04-20] MEDS: INSULIN ASPART PER UNIT CHARGE SC SCH ×4 (08:36→21:15)
--- NOTE | 2023-04-20 10:47 | Orthopedic Progress Note ---
Date of Service April 20, 2023 Assessment & Plan (1) Fracture of femoral neck, left: Plan: Postoperative day #1 status post left hip hemiarthroplasty for femoral neck fracture. -Weightbearing as tolerated. Total hip precautions. -Follow-up in orthopedics clinic with Dr. Platt in 10 to 14 days from surgery. Please call [facility] [place] at [phone] to make an appointment. -Orthopedics will sign off at this point. Admission and Anticipated Discharge Date Admission Date: April 16, 2023 Subjective Patient doing very well. He is sitting upright in a chair and quite comfortable. He denies any pain in his left hip. He reports he has already been up walking with physical therapy and taking a few steps without difficulty. Physical Exam Physical Exam: Examination of the left hip reveals no significant swelling of the left thigh. Dressing is clean, dry, and intact. Motor and sensory function is intact distally. Results & Data Vital Signs (Past 12 Hours) Vital Signs Temp Pulse Pulse Resp BP Pulse Ox O2 Del Method 04/20/23 08:49 36.7 C 89 16 130/71 97 Room Air 04/20/23 03:15 36.5 C 70 18 123/72 97 Room Air 04/19/23 23:45 36.6 C 78 18 103/62 96 Room Air Laboratory Results H/H - 12.8/39.6 Diagnostic Findings X-rays of the left hip and pelvis from 04/19/23 were independently interpreted by me. They show a press-fit bipolar hemiarthroplasty in good position. No evidence of hardware failure or loosening. Leg lengths look equal. (1) Fracture of femoral neck, left Encounter type: initial encounter Fracture type: closed Qualified Code(s): S72.002A - Fracture of unspecified part of neck of left femur, initial encounter for closed fracture
--- NOTE | 2023-04-20 11:39 | Orthopedic Progress Note ---
Date of Service April 20, 2023 Assessment & Plan (1) Fracture of femoral neck, left: Plan: 82-year-old male Postop day #1 status post left hip hemiarthroplasty for displaced left femoral neck fracture Patient may weight-bear as tolerated on the left lower extremity. PT/OTweight-bear as tolerated left lower extremity. Pain control DVT prophylaxis--The patient may resume his Eliquis at this time. Medical management Discharge planningwe discussed that if his therapy goes well here he may be able to be discharged home with home health. However, if he is having difficulties with ambulation or does not seem safe to be going home, a rehabilitation stay or long term facility for rehabilitation may be his best option. Orthopedics will sign off at this time. Discharge instructions placed in the chart. Admission and Anticipated Discharge Date Admission Date: April 16, 2023 Subjective Patient is doing well. Pain is controlled in the left hip. States he has been up moving from the bedside chair to his bed. No complaints today. Denies chest pain, shortness of breath, lightheadedness. Physical Exam Constitutional: WD/WN, vitals as above no acute distress (Sitting in the bedside chair. Comfortable.) Musculoskeletal: Hip: + surgical incision (Dressing is C/D/I.); no deformity (externally rotated left hip), no skin erythema, no ecchymosis and no surgical drain present Psychiatric: A+Ox3, euthymic affect Speech: normal rate/rhythm/volume of speech Results & Data Vital Signs (Past 12 Hours) Vital Signs Temp Pulse Pulse Resp BP Pulse Ox O2 Del Method 04/20/23 08:49 36.7 C 89 16 130/71 97 Room Air 04/20/23 03:15 36.5 C 70 18 123/72 97 Room Air 04/19/23 23:45 36.6 C 78 18 103/62 96 Room Air Laboratory Results Laboratory Tests 04/20/23 05:25 Hgb 12.8 L Hct 39.6 L BUN 37 H Creatinine 1.51 H (1) Fracture of femoral neck, left Encounter type: initial encounter Fracture type: closed Qualified Code(s): S72.002A - Fracture of unspecified part of neck of left femur, initial encounter for closed fracture
[2023-04-20] MEDS: DIGOXIN 0.25 MG TAB PO SCH (17:37)
[2023-04-20] MEDS: MAGNESIUM OXIDE 400 MG TAB PO SCH (21:16)
[2023-04-20] MEDS: APIXABAN 5 MG TABLET PO SCH (21:16)
[2023-04-21] MEDS: ACETAMINOPHEN 325 MG TAB PO SCH ×6 (01:05→21:48)
[2023-04-21 05:56] LABS: Hematocrit (blood only) 33.8 % (42.0-52.0); Hemoglobin 11.2 g/dl (14.0-18.0); Mean Corpuscular Hemoglobin 29.9 pg (25.0-34.0); Mean Corpuscular Hgb Conc 33.1 g/dL (32.0-36.0); Mean Corpuscular Volume 90.4 fL (80.0-100.0); Mean Platelet Volume 12.6 fL (9.4-12.4); Platelet Count 114 K/uL (130-400); RDW Coefficient of Variation 13.1 % (11.5-14.5); RDW Standard Deviation 43.5 fL (36.4-46.3); Red Blood Count 3.74 M/uL (4.70-6.10); White Blood Count 10.41 K/ul (4.8-10.8)
[2023-04-21 06:12] LABS: BUN Creatinine Ratio 39.4 (10-20); Calcium 9.8 mg/dl (8.6-10.3); Creatinine Clr Calc Pharmacy 40.4 ml/min; Est GFR (African American) 52.6 ml/min; Est GFR (Non-African American) 45.4 ml/min; Magnesium 1.8 mg/dl (1.7-2.4); Phosphorus 2.9 mg/dl (2.5-4.9); Potassium 4.2 mmol/L (3.5-5.1)
[2023-04-21] MEDS: INSULIN ASPART PER UNIT CHARGE SC SCH ×4 (08:41→21:45)
[2023-04-21] MEDS: MAGNESIUM OXIDE 400 MG TAB PO SCH ×2 (08:52→21:48)
[2023-04-21] MEDS: APIXABAN 5 MG TABLET PO SCH ×2 (08:52→21:48)
[2023-04-21] MEDS ORDERED: DOCUSATE SODIUM 100 MG CAP PO ONE (09:22)
[2023-04-21] MEDS: LACTATED RINGER'S 1,000 ML IV SCH (09:29)
[2023-04-21] MEDS: POLYETHYLENE (MIRALAX) 17 GM PACK PO SCH (10:48)
--- NOTE | 2023-04-21 11:16 | Hospitalist Progress Note ---
Date of Service April 21, 2023 Assessment & Plan (1) Fracture of femoral neck, left: (2) Diabetes mellitus, type 2: (3) Atrial fibrillation: (4) HFrEF (heart failure with reduced ejection fraction): Plan Mr. Mcgrath is an 82 year old gentleman with DM2, chronic HFrEf, non-ischemic cardiomyopathy, s/p ICD placement, persistent atrial fibrillation on chronic Eliquis, BPH and other history who presented to the ED after a fall with resultant left hip pain on 04/16. Work-up in the ED revealed a mildly displaced left femoral neck fracture so pt was referred for admission. Patient is scheduled for left hip arthroplasty, however, it is scheduled for OR 04/19 given DOAC useage. Patient recovering well postoperatively. #Acute normocytic anemia 2/2 traumatic injury/ fracture *stable -Stable at 13.6, now to 12.8-->11.2, continue to montior H&H -Montior CBC for post-operative anemia, transfuse <7.0 or symptomatic #Fracture left femoral neck Ortho consulted, awaiting formal consult/plan Pain control with as scheduled tylenol and prn morphine, oxycodone. RCRI is 1 point, Class II risk 2/2 chronic HFrEF; BNP 105, monitor perioperative volume status POD 2 left hemiarthoplasty Continue Eliquis Contine VitD-Ca supplementation Bowel regimen #DMTII Hgb A1c 8.3 Hold home Tradjenta, utilize NovoLog per protocol while hospitalized -Start glargine 7 BID for better glucose control #Atrial Fibrillation Eliquis currently on hold for the OR Rate controlled on beta-noy and digoxin -Start half dose coreg 2/2 hypotension; continue digoxin -Continue elquis #Relative hypotension #Chronic HFrEF EF 35% Appears euvolemic, utilizes Lasix on a as needed basis Start half coreg and hold ACEi this pm #CKDII GFR OSH and historically here trends 45-50 -CTM DVT PROPHYLAXIS Resume home eliquis Referrals for inpatient rehab to be placed Admission and Anticipated Discharge Date Admission Date: April 16, 2023 Subjective Very pleasant at bedside Reports he is feeling well over all and eager to get to rehab. states pain is controlled, denies chest pain, palpitations, SOB or acute concerns Notes that he does need to have a bowel movement and disucssed best regimen for him Review of Systems Review of Systems: All systems reviewed & are unremarkable except as noted in Subjective Physical Exam Constitutional: WD/WN, vitals as above Respiratory: normal respiratory effort, lungs clear to auscultation Cardiovascular: RRR, no murmur, no edema Results & Data Results & Data Vital Signs (Past 12 Hours) Vital Signs Temp Pulse Resp BP Pulse Ox O2 Del Method 04/21/23 07:36 36.5 C 112 H 16 117/69 99 Room Air Laboratory Results Short CBC 04/21/23 Range/Units 05:29 WBC 10.41 (4.8-10.8) K/ul Hgb 11.2 L (14.0-18.0) g/dl Hct 33.8 L (42.0-52.0) % Plt Count 114 L (130-400) K/uL BMP 04/21/23 05:29 Sodium 136 Potassium 4.2 Chloride 103 Carbon Dioxide 28 BUN 56 H Creatinine 1.42 H Glucose 299 H Calcium 9.8 Medications Administered Home Medications Medication Instructions Recorded Confirmed Last Taken carvedilol 6.25 mg tablet (Coreg) 6.25 mg PO BID 09/09/19 04/16/23 04/15/23 linagliptin 5 mg tablet (Tradjenta) 5 mg PO QDL 09/09/19 04/16/23 04/15/23 acetaminophen 500 mg tablet 1,000 mg PO QAM 02/11/20 04/16/23 04/16/23 (Tylenol Extra Strength) furosemide 40 mg tablet 40 mg PO MOWEFR PRN Edema 09/07/20 04/17/23 04/14/23 cholecalciferol (vitamin D3) 1,250 50,000 unit PO MONTHLY 11/30/20 04/16/23 04/08/22 mcg (50,000 unit) capsule albuterol sulfate 90 mcg/actuation 2 puff inhalation DIRECTED PRN 12/29/20 04/16/23 04/08/22 aerosol inhaler (Proventil HFA) Wheezing polyethylene glycol 3350 17 gram 17 g PO DAILY PRN Constipation 12/29/20 04/16/23 04/08/22 oral powder packet (Miralax) apixaban 5 mg tablet (Eliquis) 5 mg PO BID 03/05/22 04/16/23 04/15/23 ascorbic acid (vitamin C) 500 mg 500 mg PO DAILY 04/16/23 04/16/23 Unknown tablet (Vitamin C) lisinopril 5 mg tablet 5 mg PO DAILY 04/16/23 04/16/23 Unknown digoxin 250 mcg (0.25 mg) tablet 250 mcg PO DAILY 04/17/23 04/17/23 Unknown Active Medications Generic Name Dose Route Start Last Admin Trade Name Salq PRN Reason Stop Dose Admin Acetaminophen 650 mg 04/19/23 17:00 04/21/23 08:50 Acetaminophen 325 Mg Tab PO 05/19/23 16:59 650 mg Q4H MICAH Administration Apixaban 5 mg 04/20/23 21:00 04/21/23 08:52 Apixaban 5 Mg Tablet PO 05/20/23 20:59 5 mg BID MICAH Administration Carvedilol 6.25 mg 04/16/23 21:00 04/20/23 08:36 Carvedilol 6.25 Mg Tab PO 05/16/23 20:59 6.25 mg BID MICAH Administration Digoxin 0.25 mg 04/18/23 09:00 04/20/23 17:37 Digoxin 0.25 Mg Tab PO 05/18/23 08:59 0.25 mg DAILY@1600 MICAH Administration Lactated Ringer's 1,000 mls @ 15 mls/hr 04/19/23 08:45 04/21/23 09:29 Lr IV 05/19/23 08:44 Not Given .Q24H MICAH KVO Insulin Aspart 0 units 04/19/23 13:05 04/21/23 08:41 Insulin Aspart Per Unit Charge SC 05/19/23 00:00 7 units ACHS MICAH Administration Lisinopril 5 mg 04/17/23 09:00 04/20/23 08:36 Lisinopril 5 Mg Tab PO 05/17/23 08:59 5 mg DAILY MICAH Administration Magnesium Oxide 400 mg 04/20/23 21:00 04/21/23 08:52 Magnesium Oxide 400 Mg Tab PO 05/20/23 20:59 400 mg BID MICAH Administration Oxycodone HCl 10 mg 04/16/23 18:38 04/20/23 09:11 Oxycodone Hcl Ir 5 Mg Tab (Immediate Release) PO 04/30/23 18:37 10 mg Q4H PRN Administration SEVERE Pain (7,8,9,10) Polyethylene Glycol 17 gm 04/21/23 09:30 04/21/23 10:48 Polyethylene (Miralax) 17 Gm Pack PO 05/21/23 09:29 17 gm DAILY MICAH Administration (1) Fracture of femoral neck, left Encounter type: initial encounter Fracture type: closed Qualified Code(s): S72.002A - Fracture of unspecified part of neck of left femur, initial encounter for closed fracture (2) Diabetes mellitus, type 2 Diabetes mellitus underwriter solicitation director insulin use: without snf use Diabetes mellitus complication status: without complication Qualified Code(s): E11.9 - Type 2 diabetes mellitus without complications (3) Atrial fibrillation Atrial fibrillation type: persistent (not longstanding) Qualified Code(s): I48.19 - Other persistent atrial fibrillation
[2023-04-21] MEDS ORDERED: LANTUS PER UNIT CHARGE SQ SCH (11:30)
[2023-04-21] MEDS: carvediloL 3.125 MG TAB PO SCH ×2 (14:17→17:38)
[2023-04-21] MEDS: DIGOXIN 0.25 MG TAB PO SCH (16:41)
[2023-04-21] MEDS: LANTUS PER UNIT CHARGE SQ SCH (21:45)
[2023-04-22] MEDS: ACETAMINOPHEN 325 MG TAB PO SCH ×6 (01:23→23:05)
[2023-04-22 08:41] LABS: BUN Creatinine Ratio 36.7 (10-20); Calcium 10.3 mg/dl (8.6-10.3); Creatinine Clr Calc Pharmacy 41.3 ml/min; Est GFR (African American) 53.9 ml/min; Est GFR (Non-African American) 46.5 ml/min; Potassium 4.1 mmol/L (3.5-5.1)
[2023-04-22] MEDS: APIXABAN 5 MG TABLET PO SCH ×2 (09:39→22:04)
[2023-04-22] MEDS: MAGNESIUM OXIDE 400 MG TAB PO SCH ×2 (09:39→22:05)
[2023-04-22] MEDS: POLYETHYLENE (MIRALAX) 17 GM PACK PO SCH (09:40)
[2023-04-22] MEDS: carvediloL 3.125 MG TAB PO SCH ×2 (09:40→17:43)
[2023-04-22] MEDS: INSULIN ASPART PER UNIT CHARGE SC SCH ×4 (09:42→22:58)
[2023-04-22] MEDS: LANTUS PER UNIT CHARGE SQ SCH ×2 (09:42→23:00)
--- NOTE | 2023-04-22 16:25 | Hospitalist Progress Note ---
Date of Service April 22, 2023 Assessment & Plan (1) Fracture of femoral neck, left: (2) Diabetes mellitus, type 2: (3) Atrial fibrillation: (4) HFrEF (heart failure with reduced ejection fraction): Plan Mr. Mcgrath is an 82 year old gentleman with DM2, chronic HFrEf, non-ischemic cardiomyopathy, s/p ICD placement, persistent atrial fibrillation on chronic Eliquis, BPH and other history who presented to the ED after a fall with resultant left hip pain on 04/16. Work-up in the ED revealed a mildly displaced left femoral neck fracture so pt was referred for admission. Patient is scheduled for left hip arthroplasty, however, it is scheduled for OR 04/19 given DOAC useage. Patient recovering well postoperatively. Now pending discharge to rehab. #Acute normocytic anemia 2/2 traumatic injury/ fracture *stable -Stable at 13.6, now to 12.8-->11.2, continue to montior H&H -Montior CBC for post-operative anemia, transfuse <7.0 or symptomatic #Fracture left femoral neck Ortho consulted, awaiting formal consult/plan Pain control with as scheduled tylenol and prn morphine, oxycodone. RCRI is 1 point, Class II risk 2/2 chronic HFrEF; BNP 105, monitor perioperative volume status POD 3left hemiarthoplasty Continue Eliquis Contine VitD-Ca supplementation Bowel regimen #DMTII Hgb A1c 8.3 Hold home Tradjenta, utilize NovoLog per protocol while hospitalized -Start glargine 15 BID for better glucose control #Atrial Fibrillation Eliquis currently on hold for the OR Rate controlled on beta-noy and digoxin -Start half dose coreg 2/2 hypotension; continue digoxin -Continue elquis #Relative hypotension #Chronic HFrEF EF 35% Appears euvolemic, utilizes Lasix on a as needed basis Start half coreg and hold ACEi this pm #CKDII GFR OSH and historically here trends 45-50 -CTM DVT PROPHYLAXIS Resume home eliquis Referrals for inpatient rehab to be placed Admission and Anticipated Discharge Date Admission Date: April 16, 2023 Subjective NAEO Feeling great walking and ambulating in hallway with enthusiasm Review of Systems Review of Systems: All systems reviewed & are unremarkable except as noted in Subjective Physical Exam Constitutional: WD/WN, vitals as above Respiratory: normal respiratory effort, lungs clear to auscultation Cardiovascular: RRR, no murmur, no edema Gastrointestinal (Abdomen): normal bowel sounds, soft, nontender, no hepatosplenomegaly Results & Data Results & Data Vital Signs (Past 12 Hours) Vital Signs Temp Pulse Pulse Resp BP BP Pulse Ox 04/22/23 15:51 36.5 C 85 18 114/72 97 04/22/23 11:53 36.5 C 78 16 110/69 98 04/22/23 08:00 36.7 C 64 14 157/71 H 99 O2 Del Method 04/22/23 15:51 Room Air 04/22/23 11:53 Room Air 04/22/23 08:00 Room Air Laboratory Results BMP 04/22/23 08:08 Sodium 139 Potassium 4.1 Chloride 105 Carbon Dioxide 29 BUN 51 H Creatinine 1.39 Glucose 222 H Calcium 10.3 Medications Administered Home Medications Medication Instructions Recorded Confirmed Last Taken carvedilol 6.25 mg tablet (Coreg) 6.25 mg PO BID 09/09/19 04/16/23 04/15/23 linagliptin 5 mg tablet (Tradjenta) 5 mg PO QDL 09/09/19 04/16/23 04/15/23 acetaminophen 500 mg tablet 1,000 mg PO QAM 02/11/20 04/16/23 04/16/23 (Tylenol Extra Strength) furosemide 40 mg tablet 40 mg PO MOWEFR PRN Edema 09/07/20 04/17/23 04/14/23 cholecalciferol (vitamin D3) 1,250 50,000 unit PO MONTHLY 11/30/20 04/16/23 04/08/22 mcg (50,000 unit) capsule albuterol sulfate 90 mcg/actuation 2 puff inhalation DIRECTED PRN 12/29/20 04/16/23 04/08/22 aerosol inhaler (Proventil HFA) Wheezing polyethylene glycol 3350 17 gram 17 g PO DAILY PRN Constipation 12/29/20 04/16/23 04/08/22 oral powder packet (Miralax) apixaban 5 mg tablet (Eliquis) 5 mg PO BID 03/05/22 04/16/23 04/15/23 ascorbic acid (vitamin C) 500 mg 500 mg PO DAILY 04/16/23 04/16/23 Unknown tablet (Vitamin C) lisinopril 5 mg tablet 5 mg PO DAILY 04/16/23 04/16/23 Unknown digoxin 250 mcg (0.25 mg) tablet 250 mcg PO DAILY 04/17/23 04/17/23 Unknown Active Medications Generic Name Dose Route Start Last Admin Trade Name Salq PRN Reason Stop Dose Admin Acetaminophen 650 mg 04/19/23 17:00 04/22/23 14:36 Acetaminophen 325 Mg Tab PO 05/19/23 16:59 650 mg Q4H MICAH Administration Apixaban 5 mg 04/20/23 21:00 04/22/23 09:39 Apixaban 5 Mg Tablet PO 05/20/23 20:59 5 mg BID MICAH Administration Carvedilol 6.25 mg 04/16/23 21:00 04/20/23 08:36 Carvedilol 6.25 Mg Tab PO 05/16/23 20:59 6.25 mg BID MICAH Administration Carvedilol 3.125 mg 04/21/23 11:30 04/22/23 09:40 Carvedilol 3.125 Mg Tab PO 05/21/23 11:29 3.125 mg BIDM MICAH Administration Digoxin 0.25 mg 04/18/23 09:00 04/21/23 16:41 Digoxin 0.25 Mg Tab PO 05/18/23 08:59 0.25 mg DAILY@1600 MICAH Administration Insulin Aspart 0 units 04/19/23 13:05 04/22/23 12:44 Insulin Aspart Per Unit Charge SC 05/19/23 00:00 12 units ACHS MICAH Administration Lisinopril 5 mg 04/17/23 09:00 04/20/23 08:36 Lisinopril 5 Mg Tab PO 05/17/23 08:59 5 mg DAILY MICAH Administration Magnesium Oxide 400 mg 04/20/23 21:00 04/22/23 09:39 Magnesium Oxide 400 Mg Tab PO 05/20/23 20:59 400 mg BID MICAH Administration Oxycodone HCl 10 mg 04/16/23 18:38 04/20/23 09:11 Oxycodone Hcl Ir 5 Mg Tab (Immediate Release) PO 04/30/23 18:37 10 mg Q4H PRN Administration SEVERE Pain (7,8,9,10) Polyethylene Glycol 17 gm 04/21/23 09:30 04/22/23 09:40 Polyethylene (Miralax) 17 Gm Pack PO 05/21/23 09:29 Not Given DAILY MICAH (1) Fracture of femoral neck, left Encounter type: initial encounter Fracture type: closed Qualified Code(s): S72.002A - Fracture of unspecified part of neck of left femur, initial encounter for closed fracture (2) Diabetes mellitus, type 2 Diabetes mellitus buttermaker insulin use: without mcfp use Diabetes mellitus complication status: without complication Qualified Code(s): E11.9 - Type 2 diabetes mellitus without complications (3) Atrial fibrillation Atrial fibrillation type: persistent (not longstanding) Qualified Code(s): I48.19 - Other persistent atrial fibrillation
[2023-04-22] MEDS: DIGOXIN 0.25 MG TAB PO SCH (16:27)
[2023-04-23] MEDS: ACETAMINOPHEN 325 MG TAB PO SCH ×5 (02:09→13:09)
[2023-04-23] MEDS: APIXABAN 5 MG TABLET PO SCH (08:07)
[2023-04-23] MEDS: POLYETHYLENE (MIRALAX) 17 GM PACK PO SCH (08:07)
[2023-04-23] MEDS: MAGNESIUM OXIDE 400 MG TAB PO SCH (08:07)
[2023-04-23] MEDS: carvediloL 3.125 MG TAB PO SCH (08:07)
[2023-04-23 08:10] LABS: BUN Creatinine Ratio 36.8 (10-20); Calcium 10.1 mg/dl (8.6-10.3); Creatinine Clr Calc Pharmacy 54.1 ml/min; Est GFR (African American) 74.9 ml/min; Est GFR (Non-African American) 64.6 ml/min; Potassium 4.4 mmol/L (3.5-5.1)
[2023-04-23] MEDS: INSULIN ASPART PER UNIT CHARGE SC SCH ×2 (08:58→13:08)
[2023-04-23] MEDS: LANTUS PER UNIT CHARGE SQ SCH (08:58)
--- NOTE | 2023-04-23 15:43 | Discharge Summary ---
Discharge Summary Date of Service April 23, 2023 Notes For Next Care Provider Medication Changes From Visit -Insulin glargine 15U BID Admission HPI Per Admitting Provider This is an 82 y/o male with DM2, chronic HFrEf, non-ischemic cardiomyopathy, CAD, s/p ICD placement, persistent atrial fibrillation on chronic Eliquis, BPH and other history as listed below who presents to the ED today after a fall with resultant left hip pain. Pt reports that he took his 90 lb dog to the dog park today in the rain, and on the way back to the car, his dog pulled unexpectedly and the pt lost his balance and fell, landing directly on the left hip. He denies syncopal event, did not hit his head, did not injure anything else. Currently, he is having mild intermittent cramping in the muscles of the left hip that he rates as a 1-2 out of 10 and that radiates to his left groin. Notes increased discomfort if he tries to fully sit up. He is able to move his toes bilaterally, no significant numbness in the foot. He has chronic RLE lymphedema for which he uses prn furosemide and which is currently at baseline. Pt lives alone, does not use assistive devices. He walked one mile two days ago and had no chest pain, lightheadedness, MCKEON, or palpitations. He reports walking 0.5-1 mile most days. He has stable orthopnea and sleeps propped up. This is no worse than usual. Pt has a pacer/ICD - reports the device was recently interrogated and without abnormality. He is on chronic Eliquis due to persistent atrial fibrillation - thinks that his last dose was yesterday. Principal Dx & Hospital Course #1 = Principal Diagnosis (1) Fracture of femoral neck, left: (2) Diabetes mellitus, type 2: (3) Atrial fibrillation: (4) HFrEF (heart failure with reduced ejection fraction): Plan Mr. Mcgrath is an 82 year old gentleman with DM2, chronic HFrEf, non-ischemic cardiomyopathy, s/p ICD placement, persistent atrial fibrillation on chronic Eliquis, BPH and other history who presented to the ED after a fall with resultant left hip pain on 04/16. Work-up in the ED revealed a mildly displaced left femoral neck fracture so pt was referred for admission. Patient is scheduled for left hip arthroplasty, however, it is scheduled for OR 04/19 given DOAC useage. Patient recovering well postoperatively. Actively engaged in PT.OT. Making notable progress. Course complicated by difficult to control blood sugar. Discharged with 15 U BID glargine as he had not started Trulicity as an outpatient #Acute normocytic anemia 2/2 traumatic injury/ fracture *stable -Stable at 13.6, now to 12.8-->11.2.Stable upon discharge #Fracture left femoral neck #Chronic Right lymphedema Ortho consulted, awaiting formal consult/plan Pain control with as scheduled tylenol and prn morphine, oxycodone. RCRI is 1 point, Class II risk 2/2 chronic HFrEF; BNP 105, monitor perioperative volume status POD 4 left hemiarthoplasty Continue Eliquis Contine VitD-Ca supplementation Bowel regimen #DMTII Hgb A1c 8.3 Hold home Tradjenta, utilize NovoLog per protocol while hospitalized -Continue glargine 15 BID for better glucose control; follow up OP for titration #Atrial Fibrillation Eliquis currently on hold for the OR Rate controlled on beta-noy and digoxin -Continue home coreg -continue digoxin -Continue elquis #Relative hypotension #Chronic HFrEF EF 35% Appears euvolemic, utilizes Lasix on a as needed basis Continue home regimen #CKDII GFR OSH and historically here trends 45-50 -CTM On day of discharge, patient states that he feels great, eager to go to rehab. Eating well and ambulating with assistive device in hallway with PT. Discharge Exam Constitutional WD/WN, vitals as above Respiratory normal respiratory effort, lungs clear to auscultation Cardiovascular RRR, no murmur, no edema Skin R leg edema > L, stable/chronic Updated Medication List Medication Instructions Recorded Confirmed Type carvedilol 6.25 mg tablet (Coreg) 6.25 mg PO BID 09/09/19 04/16/23 History linagliptin 5 mg tablet (Tradjenta) 5 mg PO QDL 09/09/19 04/16/23 History acetaminophen 500 mg tablet 1,000 mg PO QAM 02/11/20 04/16/23 History (Tylenol Extra Strength) furosemide 40 mg tablet 40 mg PO MOWEFR PRN Edema 09/07/20 04/17/23 History cholecalciferol (vitamin D3) 1,250 50,000 unit PO MONTHLY 11/30/20 04/16/23 History mcg (50,000 unit) capsule albuterol sulfate 90 mcg/actuation 2 puff inhalation DIRECTED PRN 12/29/20 04/16/23 History aerosol inhaler (Proventil HFA) Wheezing polyethylene glycol 3350 17 gram 17 g PO DAILY PRN Constipation 12/29/20 04/16/23 History oral powder packet (Miralax) apixaban 5 mg tablet (Eliquis) 5 mg PO BID 03/05/22 04/16/23 History ascorbic acid (vitamin C) 500 mg 500 mg PO DAILY 04/16/23 04/16/23 History tablet (Vitamin C) lisinopril 5 mg tablet 5 mg PO DAILY 04/16/23 04/16/23 History digoxin 250 mcg (0.25 mg) tablet 250 mcg PO DAILY 04/17/23 04/17/23 History insulin glargine 100 unit/mL 15 unit (0.15 mL) subcut BID #10 mL 04/23/23 Rx subcutaneous solution (Lantus U-100 Insulin) Hospital Stay Data Consultations 04/16/23 16:52 ED Decision to Admit Stat 04/16/23 18:38 Consult Anesthesiology Routine Consult Orthopedic Surgery Routine Procedures Performed Operation Date: 04/19/23 09:20 Actual Procedures p Left Hip Hemiarthroplasty(Left) - Alberto Platt DO Diagnostic Imagining Performed 04/16/23 14:55 CT neck [CT cervical spine wo con] Stat Head CT [CT head/brain wo con] Stat Pending Results Patient Have Any Pending Studies at Discharge: No Discharge Instructions Given to Patient (Per Discharging Provider) You were admitted after a fall and found to have a left hip fracture. You underwent left hip replacement on 04/19/2023. You have recovered well. You were started on Vitamin D/Calcium supplementation twice a day. You other health issues remained stable during admission; however, your blood sugars were very difficult to control. To help heal in the post-operative time, we will continue your insulin regimen from hospitalization of long acting insulin twice a day -Glargine 15 units twice daily Please ensure follow up post-hospitalization to address your home diabetes regimen. Dr Mendes [phone] Total Time Total Time Spent Total Time Spent (In Minutes): 35
== END 2023-04-23 14:21 | DRG 522 ==
LOC: ED 14:18 → SUATTDRO 16:57 → 3W 16:57